=== PATIENT | female | born 1945 | race Caucasian/White ===

== ENCOUNTER 2017-04-12 09:46 | Outpatient (CLI) | payer MEDICARE, OTHER | END 2017-04-12 09:47 | disposition EMS.NT | LOC: EMS 09:46 | PROVIDERS: ATTEND Surgery | DX: R53.1 Weakness (principal) ==

== ENCOUNTER 2017-05-18 08:00 | Outpatient (CLI) | payer MEDICARE, OTHER ==
[2017-05-18 19:10] LABS: BASOPHILS # (AUTO) 0.1 10^3/uL (0.0-0.1); BASOPHILS % (AUTO) 1.8 %; EOSINOPHILS # (AUTO) 0.4 10^3/uL (0.0-0.7); EOSINOPHILS % (AUTO) 6.1 %; HCT - HEMATOCRIT 34.3 % (37.0-47.0); HGB - HEMOGLOBIN 11.9 g/dL (12.0-16.0); LYMPHOCYTES % (AUTO) 15.3 %; MEAN CORPUSCULAR HEMOGLOBIN 31.7 pg (27.0-31.0); MEAN CORPUSCULAR HGB CONC 34.6 g/dL (32.0-36.0); MEAN CORPUSCULAR VOLUME 91.6 fL (81.0-99.0); MEAN PLATELET VOLUME 8.4 fL (7.9-10.8); MONOCYTES # (AUTO) 0.7 10^3/uL (0.0-1.0); MONOCYTES % (AUTO) 10.3 %; NEUTROPHILS # (AUTO) 4.3 10^3/uL (1.5-6.6); NEUTROPHILS % (AUTO) 66.5 %; RED BLOOD COUNT 3.74 10^6/uL (4.20-5.40); RED CELL DISTRIBUTION WIDTH 13.9 % (12.0-15.0); UNCORRECTED WHITE BLOOD COUNT 6.5 x10^3/uL; WHITE BLOOD COUNT 6.5 x10^3/uL (4.8-10.8)
[2017-05-18 19:31] LABS: ALBUMIN/GLOBULIN RATIO 1.5 (1.0-2.2); BILIRUBIN,TOTAL 0.7 mg/dL (0.2-1.0); BUN - BLOOD UREA NITROGEN 18 mg/dL (6-20); CARBON DIOXIDE - CO2 26 mmol/L (21-32); CHLORIDE 97 mmol/L (101-111); GFR - MDRD 55 (>89); GLUCOSE 103 mg/dL (70-100); IRON 68 ug/dL (28-170); POTASSIUM 4.4 mmol/L (3.5-5.0); PREALBUMIN 25 mg/dL (18-45); SODIUM 130 mmol/L (135-145); TOTAL IRON BINDING CAPACITY 266 ug/dL (250-450); TOTAL PROTEIN 6.8 g/dL (6.7-8.2); TRANSFERRIN 190 mg/dL (192-382)
[2017-05-18 19:38] LABS: THYROID STIMULATING HORMONE 1.13 uIU/mL (0.34-5.60)
[2017-05-18 19:45] LABS: FERRITIN 82.4 ng/mL (11.0-306.8)
[2017-05-18 19:49] LABS: FOLATE 18.27 ng/mL (5.90 - >24.8)
[2017-05-18 20:07] LABS: BILIRUBIN,URINE NEGATIVE (NEGATIVE)
== END 2017-05-18 08:01 | disposition home or self-care (01) ==
LOC: LAB.WCP 08:00
PROVIDERS: ATTEND Family Medicine
DX: R63.0 Anorexia (principal); D64.9 Anemia, unspecified; R30.0 Dysuria
CPT/HCPCS: 36415; 80053; 81003; 82607; 82728; 82746; 83540; 84134; 84443; 84466; 85025

== ENCOUNTER 2018-10-16 15:41 | Outpatient (CLI) | payer MEDICARE, OTHER | END 2018-10-16 15:42 | disposition critical access hospital (66) | LOC: EMS 15:41 | PROVIDERS: ATTEND Surgery | DX: T14.90XA Injury, unspecified, initial encounter (principal); W18.39XA Other fall on same level, initial encounter; Y93.E8 Activity, other personal hygiene; Y92.009 Unspecified place in unspecified non-institutional (private) residence as the place of occurrence of the external cause | CPT/HCPCS: A0425; A0429 ==

== ENCOUNTER 2018-10-16 15:54 | Inpatient (IN) | payer MEDICARE, OTHER ==
[2018-10-16] MEDS ORDERED: HYDROcod/ACETAM 5/325 MG TABLET PO STA (16:15)
[2018-10-16] MEDS ORDERED: ACETAMINOPHEN 325 MG TABLET PO STA (16:15)
[2018-10-16 16:33] LABS: BASOPHILS # (AUTO) 0.1 10^3/uL (0.0-0.1); BASOPHILS % (AUTO) 0.6 %; EOSINOPHILS % (AUTO) 0.1 %; LYMPHOCYTES # (AUTO) 0.3 10^3/uL (1.5-3.5); LYMPHOCYTES % (AUTO) 2.9 %; MEAN CORPUSCULAR HEMOGLOBIN 31.9 pg (27.0-31.0); MEAN CORPUSCULAR HGB CONC 34.6 g/dL (32.0-36.0); MEAN CORPUSCULAR VOLUME 92.3 fL (81.0-99.0); MONOCYTES # (AUTO) 0.6 10^3/uL (0.0-1.0); MONOCYTES % (AUTO) 6.5 %; NEUTROPHILS # (AUTO) 8.9 10^3/uL (1.5-6.6); NEUTROPHILS % (AUTO) 89.9 %; PLT - PLATELET COUNT 201 10^3/uL (130-450); RED BLOOD COUNT 3.75 10^6/uL (4.20-5.40); RED CELL DISTRIBUTION WIDTH 14.3 % (12.0-15.0)
[2018-10-16 16:44] LABS: ALBUMIN 3.9 g/dL (3.2-5.5); ALBUMIN/GLOBULIN RATIO 1.3 (1.0-2.2); BILIRUBIN,TOTAL 1.1 mg/dL (0.2-1.0); CALCIUM 9.3 mg/dL (8.5-10.3); TOTAL PROTEIN 6.8 g/dL (6.7-8.2)
--- NOTE | 2018-10-16 17:33 | XRAY Report ---
Reason: Pain after GLF Procedure Date: 10/16/2018 Accession Number: [id number] / [id number] Procedure: XR - Pelvis 1 View CPT Code: FULL RESULT: EXAM: PELVIS RADIOGRAPHY EXAM DATE: 10/16/2018 04:42 PM. CLINICAL HISTORY: Left hip pain COMPARISON: None. TECHNIQUE: 1 view. FINDINGS: Bones: There is left upper femoral neck fracture. Joints: No evidence of dislocation. Soft Tissues: No unexpected soft tissue findings. There is large volume stool within colon. IMPRESSION: There is impacted fracture of the upper left femoral neck. No evidence of dislocation. RADIA
--- NOTE | 2018-10-16 17:34 | XRAY Report ---
Reason: Pain Procedure Date: 10/16/2018 Accession Number: [id number] / [id number] Procedure: XR - Femur 2V LT CPT Code: FULL RESULT: EXAM: LEFT FEMUR RADIOGRAPHY EXAM DATE: 10/16/2018 04:42 PM. CLINICAL HISTORY: Pain. COMPARISON: None. TECHNIQUE: 2 views. FINDINGS: Bones: There is upper left femoral neck fracture. No other fractures are seen. Joints: No evidence of dislocation. Soft Tissues: No unexpected soft tissue findings. IMPRESSION: There is upper left femoral neck fracture. No evidence of dislocation. RADIA
--- NOTE | 2018-10-16 17:45 | CT Report ---
Reason: Fall w pain Procedure Date: 10/16/2018 Accession Number: [id number] / [id number] Procedure: CT - CERVICAL SPINE WO CPT Code: FULL RESULT: EXAM: CT CERVICAL SPINE WITHOUT CONTRAST DATE: 10/16/2018 05:18 PM. HISTORY: Fall. Neck pain. COMPARISONS: None. TECHNIQUE: Thin-section axial images were acquired of the cervical spine without contrast. Post-processing: Coronal and sagittal reformats. Other: None. In accordance with CT protocol optimization, one or more of the following dose reduction techniques were utilized for this exam: automated exposure control, adjustment of mA and/or KV based on patient size, or use of iterative reconstructive technique. FINDINGS: Alignment: No scoliosis. 1 mm anterolisthesis at C4-C5 due to facet arthropathy. Bones: No fracture or bone lesion. Interspace Levels/Facets: Disk heights maintained. Multilevel facet arthropathy. Other: The paravertebral and prevertebral soft tissues are unremarkable. The lung apices are clear. IMPRESSION: No acute cervical spine abnormalities. RADIA
[2018-10-16] MEDS ORDERED: TEMAZEPAM 15 MG CAPSULE PO PRN (18:48)
[2018-10-16] MEDS ORDERED: ONDANSETRON 4 MG/2 ML VIAL IVP PRN (18:48)
[2018-10-16] MEDS ORDERED: ONDANSETRON ODT 4 MG TABLET TL PRN (18:48)
[2018-10-16] MEDS ORDERED: ACETAMINOPHEN 325 MG TABLET PO PRN (18:48)
--- NOTE | 2018-10-16 18:49 | ED Physician Documentation ---
History of Present Illness - Stated complaint Stated Complaint: GLF - Chief complaint Chief Complaint: General - History obtained from History obtained from: Family - History of Present Illness Timing: Prior to arrival (1 hr) Pain level max: 3 Pain level now: 3 Severity Comments: Mild Quality: Sharp Radiates to: none Improved by: nothing Worsened by: Walking - Additonal information Additional information: 73-year-old female with left hip pain after ground-level fall.Patient ambulates independently at baseline. Review of Systems Unable to obtain: Dementia Constitutional: reports: Reviewed and negative Eyes: reports: Reviewed and negative Ears: reports: Reviewed and negative Nose: reports: Reviewed and negative Throat: reports: Reviewed and negative Cardiac: reports: Reviewed and negative Respiratory: reports: Reviewed and negative GI: reports: Reviewed and negative : reports: Reviewed and negative Skin: reports: Reviewed and negative Musculoskeletal: reports: Reviewed and negative Neurologic: reports: Reviewed and negative Psychiatric: reports: Reviewed and negative Endocrine: reports: Reviewed and negative Immunocompromised: reports: Reviewed and negative PD PAST MEDICAL HISTORY - Past Medical History Past Medical History: Yes Cardiovascular: Hypertension, High cholesterol Respiratory: None Neuro: Dementia, Other Endocrine/Autoimmune: HyPOthyroidism GI: None 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 : None HEENT: Chronic vision loss, Chronic hearing loss Psych: None Musculoskeletal: None Derm: None Other Past Medical History: aphasia, melas - Past Surgical History Past Surgical History: Yes HEENT: Other - Present Medications Home Medications: Ambulatory Orders Medication Instructions Recorded Confirmed Levothyroxine [Synthroid] 75 mcg ORAL DAILY 03/04/16 06/02/16 Lisinopril [Prinivil] 5 mg PO DAILY 03/04/16 06/02/16 Clopidogrel [Plavix] 75 mg ORAL DAILY 10/16/18 10/16/18 - Allergies Allergies/Adverse Reactions: Allergies Allergy/AdvReac Type Severity Reaction Status Date / Time No Known Drug Allergies Allergy Verified 10/16/18 16:07 - Living Situation Living Situation: reports: With spouse/s.o. Living Arrangement: reports: At home - Social History Does the pt smoke?: No Smoking Status: Never smoker Does the pt drink ETOH?: No Does the pt have substance abuse?: No - Family History Family history: reports: Other (Reviewed and not pertinent) - Immunizations Immunizations are current?: Yes - POLST Patient has POLST: No PD ED PE NORMAL - Vitals Vital signs reviewed: Yes - General General: No acute distress - HEENT HEENT: PERRL - Neck Neck: Supple, no meningeal sign - Cardiac Cardiac: RRR, No murmur - Respiratory Respiratory: Clear bilaterally - Abdomen Abdomen: Normal bowel sounds, Soft, Non tender, Non distended - Derm Derm: Warm and dry - Extremities Extremities: No deformity, Other (Left hip tenderness, NV intact) - Neuro Neuro: Alert and oriented X 3 - Psych Psych: Normal mood, Normal affect Results - Vitals Vitals: Vital Signs - 24 hr 10/16/18 10/16/18 15:58 18:21 Temperature 36.7 C Heart Rate 83 75 Respiratory 18 16 Rate Blood Pressure 192/88 H 160/92 H O2 Saturation 98 99 Oxygen O2 Source Room air - Labs Labs: Laboratory Tests 10/16/18 10/16/18 16:25 16:25 WBC 10.0 RBC 3.75 L Hgb 12.0 Hct 34.6 L MCV 92.3 MCH 31.9 H MCHC 34.6 RDW 14.3 Plt Count 201 MPV 8.0 Neut # (Auto) 8.9 H Lymph # (Auto) 0.3 L [place] # (Auto) 0.6 Eos # (Auto) 0.0 Baso # (Auto) 0.1 Absolute Nucleated RBC 0.00 Nucleated RBC % 0.0 Sodium 136 Potassium 4.4 Chloride 101 Carbon Dioxide 23 Anion Gap 12.0 BUN 24 H Creatinine 1.0 Estimated GFR (MDRD) 55 L Glucose 145 H Calcium 9.3 Total Bilirubin 1.1 H AST 27 ALT 23 Alkaline Phosphatase 42 Total Protein 6.8 Albumin 3.9 Globulin 2.9 Albumin/Globulin Ratio 1.3 Lipase 38 - Rads (name of study) Left hip xray Radiology: Final report received (Impacted femoral neck fracture) CT Head Radiology: Final report received (WNL) CT Cervical spine Radiology: Final report received (WNL) PD MEDICAL DECISION MAKING - ED course Complexity details: reviewed old records, reviewed results, considered differential, d/w patient, d/w family, 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 Consulted orthopedics and admitted to hospitalist. - Consults Consults: Consulted (name) (Kathy Simpson) Departure - Departure Disposition: [facility] DC/Xfer Clinical Impression: Closed left hip fracture Qualifiers: Encounter type: initial encounter Qualified Code(s): S72.002A - Fracture of unspecified part of neck of left femur, initial encounter for closed fracture
[2018-10-16 19:13] LABS: BILIRUBIN,URINE NEGATIVE (NEGATIVE); GLUCOSE, URINE (UA) NEGATIVE (NEGATIVE); KETONES,URINE (UA) NEGATIVE (NEGATIVE); LEUKOCYTE ESTERASE, URINE NEGATIVE (NEGATIVE); NITRITE,URINE NEGATIVE (NEGATIVE); OCCULT BLOOD,URINE TRACE-INTA (NEGATIVE); PH,URINE 6.5 PH (5.0-7.5); PROTEIN,URINE 30 mg/dL (NEGATIVE); UROBILINOGEN,URINE 0.2 (NORMAL) E.U./dL (NORMAL)
[2018-10-16 19:14] LABS: CLARITY,URINE CLEAR (CLEAR)
--- NOTE | 2018-10-16 19:19 | PROVIDER PROGRESS NOTE ---
Subjective - Prog Note Date Prog Note Date: 10/16/18 Prog Note Time: 19:16 - Subjective Pt reports feeling: Worse (Patient [facility] A GLF Wednesday, landing onto left side. Noted pain and was unable to stand and weight bear on the left. Taken to ED where XR show an impacted, minimally displaced left subcapital hip fracture.) Objective - Vital Signs/Intake & Output Vital Signs: Vital Signs x48h Temp Pulse Resp BP Pulse Ox 10/16/18 18:21 75 16 160/92 H 99 10/16/18 15:58 36.7 C 83 18 192/88 H 98 - Lab Results Fish Bones: 10/16/18 16:25 10/16/18 16:25 Other Labs: Lab Results x24hrs 10/16/18 10/16/18 10/16/18 Range/Units 18:58 16:25 16:25 WBC 10.0 (4.8-10.8) x10^3/uL RBC 3.75 L (4.20-5.40) 10^6/uL Hgb 12.0 (12.0-16.0) g/dL Hct 34.6 L (37.0-47.0) % MCV 92.3 (81.0-99.0) fL MCH 31.9 H (27.0-31.0) pg MCHC 34.6 (32.0-36.0) g/dL RDW 14.3 (12.0-15.0) % Plt Count 201 (130-450) 10^3/uL MPV 8.0 (7.9-10.8) fL Neut # (Auto) 8.9 H (1.5-6.6) 10^3/uL Lymph # (Auto) 0.3 L (1.5-3.5) 10^3/uL [place] # (Auto) 0.6 (0.0-1.0) 10^3/uL Eos # (Auto) 0.0 (0.0-0.7) 10^3/uL Baso # (Auto) 0.1 (0.0-0.1) 10^3/uL Absolute Nucleated RBC 0.00 x10^3/uL Nucleated RBC % 0.0 /100WBC Sodium 136 (135-145) mmol/L Potassium 4.4 (3.5-5.0) mmol/L Chloride 101 (101-111) mmol/L Carbon Dioxide 23 (21-32) mmol/L Anion Gap 12.0 (6-13) BUN 24 H (6-20) mg/dL Creatinine 1.0 (0.4-1.0) mg/dL Estimated GFR (MDRD) 55 L (>89) Glucose 145 H (70-100) mg/dL Calcium 9.3 (8.5-10.3) mg/dL Total Bilirubin 1.1 H (0.2-1.0) mg/dL AST 27 (10-42) IU/L ALT 23 (10-60) IU/L Alkaline Phosphatase 42 (42-121) IU/L Total Protein 6.8 (6.7-8.2) g/dL Albumin 3.9 (3.2-5.5) g/dL Globulin 2.9 (2.1-4.2) g/dL Albumin/Globulin Ratio 1.3 (1.0-2.2) Lipase 38 (22-51) U/L Urine Color YELLOW Urine Clarity CLEAR (CLEAR) Urine pH 6.5 (5.0-7.5) PH Ur Specific [place] 1.015 (1.002-1.030) Urine Protein 30 H (NEGATIVE) mg/dL Urine Glucose (UA) NEGATIVE (NEGATIVE) mg/dL Urine Ketones NEGATIVE (NEGATIVE) mg/dL Urine Occult Blood TRACE-INTA (NEGATIVE) Urine Nitrite NEGATIVE (NEGATIVE) Urine Bilirubin NEGATIVE (NEGATIVE) Urine Urobilinogen 0.2 (NORMAL) (NORMAL) E.U./dL Ur Leukocyte Esterase NEGATIVE (NEGATIVE) Ur Microscopic Review INDICATED Urine Culture Comments Not Reportable - Diagnostic Imaging Diagnostic Imaging Comments: XR show an impacted, minimally displaced left subcapital hip fracture - Other Results/Comments Other Results/Comments: EXAM: Painful left hip motion. Minimal leg shortening. Moves toes well. sensation intact. Good cap filliing Assessment/Plan - Problem List (1) Closed left hip fracture Impression: Closed, minimally displaced left subcapital hip fracture PLAN: Although patient is on Plavix, she will require urgent hip surgery to fix her fracture. Risk and benefits of surgery now vs waiting up to 5 days was explained to patient. Risks such as anesthesia risk, blood loss, DVT, infection, neurve damage, nonunion, etc explained. Questions answered. Will proceed with cannulated screw fixation of left hip fracture Mon AM if cleared by medicine and when OR schedule allows. Consent signed. Leg marked. Qualifiers: Encounter type: initial encounter Qualified Code(s): S72.002A - Fracture of unspecified part of neck of left femur, initial encounter for closed fracture
--- NOTE | 2018-10-16 19:24 | HISTORY & PHYSICAL EXAMINATION ---
Chief Complaint - Chief Complaint Chief Complaint: s/p fall withleft hip pain History of Present Illness - Admitted From Admitted From:: ED - History Obtained From Records Reviewed: Yes History obtained from: Patient Exam Limitations: dementia - History of Present Illness HPI Comment/Other: 73-year-old female with hx significant for HTN, Dementia, Hyperlipidemia, osteoporosis, chronic hearing and vision loss who ambulates idepedently p/w with having a mechanical fall at ground level with left hip pain. Patient had landing onto left side. Noted pain and was unable to stand and weight bear on the left. Taken to ED where XR show an impacted, minimally displaced left subcapital hip fracture. She is currently on plavix. On initial exam LROM to left hip to adduction and abduction as well as flexion of hip with confirmed left femoral neck fracture seen on Xray of hip/pelvis. CT spine shows no acute vertebral fractures and labs were essentially unremarkable with the exception of a baseline CKD stage 2 with a cr of 1.0. Patient to be admitted, medically managed and preoperative evaluation of medical/cardiac risk stratification for anticipated left hip surgical correction. 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 - POLST Patient has POLST: No Meds/Allgy - Home Medications Home Medications: Ambulatory Orders Medication Instructions Recorded Confirmed Levothyroxine [Synthroid] 75 mcg ORAL DAILY 03/04/16 06/02/16 Lisinopril [Prinivil] 5 mg PO DAILY 03/04/16 06/02/16 Clopidogrel [Plavix] 75 mg ORAL DAILY 10/16/18 10/16/18 - Allergies Allergies/Adverse Reactions: Allergies Allergy/AdvReac Type Severity Reaction Status Date / Time No Known Drug Allergies Allergy Verified 10/16/18 16:07 Prior Level of Functionality: Patient is independent with home ADL's Exam - Vital Signs Reviewed Vital Signs: Yes Vital Signs: Vital Signs x48h Temp Pulse Resp BP Pulse Ox 10/16/18 18:21 75 16 160/92 H 99 10/16/18 15:58 36.7 C 83 18 192/88 H 98 - Physical Exam General Appearance: positive: No acute distress, Alert, Anxious, Other (baseline dementia with behavioral disturbance on 2 pt restraints) Eyes Bilateral: positive: Normal inspection, PERRL, EOMI ENT: positive: ENT inspection nml, Pharynx nml, No signs of dehydration Neck: positive: Nml inspection, Thyroid nml, No JVD, Trachea midline. negative: Thyromegaly Respiratory: positive: Chest non-tender, No respiratory distress, Breath sounds nml. negative: Wheezes, Rales, Rhonchi Cardiovascular: positive: Regular rate & rhythm, No murmur, No gallop. neg ative: Irregularly irregular, JVD present, Systolic murmur, Gallop/S4 Peripheral Pulses: positive: 2+ Abdomen: positive: Non-tender, No organomegaly, Nml bowel sounds, No distention. negative: Tenderness Skin: positive: Color nml, No rash, Warm Extremities: positive: Nml appearance, No pedal edema, Other (LROM to abduction, addution and flexin to left hip with pain on palpation) Neurologic/Psychiatric: positive: Mood/affect nml, Disoriented to person, Disoriented to place, Disoriented to time, Other (moderate to severe dementia, neuro exam limited due to her unable to cooperate). negative: Slurred/abnml speech, Depressed mood/affect Reflexes: Bicep (R): 2+, Bicep (L): 2+, Knee (R): 2+, Knee (L): 2+, Ankle (R): 2+, Ankle (L): 2+ Babinski Reflex: Right: Absent, Left: Absent Conclusion/Plan - Problem List (1) Closed left hip fracture Conclusion/Plan: s/p mechanical fall from ground level. Risk stratification completed. Likely will have urgent repair of femoral neck fracture by Dr Roper in am. Pain control, NPO after midnight. IVF's to continue will hold plavix for now. Qualifiers: Encounter type: initial encounter Qualified Code(s): S72.002A - Fracture of unspecified part of neck of left femur, initial encounter for closed fracture (2) Pre-op evaluation Conclusion/Plan: [place] periop risk assessment completed with a TREVOR risk 0.2% and a preop mortality predicative score of 8 points which translates to 0.6% risk of perioperative mortality. UA and ecg to follow. Control HTN excursions by using lopressor IV preferably as this would improve perioperative risk for ACS. I query on her baseline dementia and or functional status as this may change perioperative risk. (3) Hypertensive urgency Conclusion/Plan: Sec to pain to left hip. IV hydralazine and or lopressor for perioperative BP excursion control. Resume lisinopril once tolerating PO however this may be challenging as she is mod-severe demented. ECG to follow. (4) Hypothyroid Conclusion/Plan: Resume synthroid at 75 mcg po daily. Qualifiers: Hypothyroidism type: acquired Qualified Code(s): E03.9 - Hypothyroidism, unspecified (5) Hyperlipidemia Conclusion/Plan: Lipid panel in am. Consider statin as she has hx CVA. (6) CKD (chronic kidney disease), stage II Conclusion/Plan: IVF's to continue, correct lytes, on a ortega catheter to minimize urinary retention post-op but may be a nidus for infection, aka UTI post op. (7) Dementia Conclusion/Plan: Suspected vascular dementia type due to hx of stroke. Patient is requiring 2 pt restraints and would need either ativan with caution on overuse as this may create a "disinhibitory" effect. Zyprexa prn instead of Haldol due to better extra-pyramidal side effect profile. NPO for anticipated surgery for now. Control pain and other stimulating factors that may exacerbate dementia. Patient will likely need a swallow eval post-op to determine coexisting oropharyngeal dysphasia as it relates to her mod-severe dementia. Qualifiers: Dementia type: unspecified type Dementia behavioral disturbance: with behavioral disturbance Qualified Code(s): F03.91 - Unspecified dementia with behavioral disturbance (8) History of stroke Conclusion/Plan: Would hold off on plavix for now as surgery will be anticipated in am. PT/INR and labs in a.m. - Lab Results Lab results reviewed: Yes Fish Bones: 10/16/18 16:25 10/16/18 16:25 - Diagnostic Imaging Results Diagnostic Imaging Results: positive: Final report reviewed (CT spine and Xrays reviewed) - EKG Results EKG Interpreted Independently: No EKG Comparison: Old EKG unavailable Core Measures - Anticipated LOS I expect patient to be DC'd or transferred within 96 hours.: Yes - Issues Hospital Issues and Management Plan: Pain control, NPO, IVF's, anticipate uncomplicated surgery outcome for left hip fracture - DVT/VTE - Prophylaxis VTE/DVT Device ordered at admit?: Yes VTE/DVT Prophylaxis med ordered at admit?: No Not Ordered - Medical Reason: Not indicated - Stroke - Rehab Assessment Rehab services assessment to be ordered?: No - AMI - Statin at Admit Aspirin Prescribed on Admit: No Not Ordered - Medical Reason: Contraindicated (will have surgery)
[2018-10-16 19:30] LABS: BACTERIA,URINE None Seen /HPF (None Seen); RBC,URINE 0-5 /HPF (0-5); SQUAMOUS EPITHELIAL CELL,UR NONE SEEN (<= Few)
[2018-10-16] MEDS ORDERED: cloNIDine 0.1 MG TABLET PO PRN (19:31)
--- NOTE | 2018-10-16 19:32 | CT Report ---
Reason: fall w pain Procedure Date: 10/16/2018 Accession Number: [id number] / [id number] Procedure: CT - HEAD WO CPT Code: FULL RESULT: EXAM: CT HEAD EXAM DATE: 10/16/2018 05:45 PM. CLINICAL HISTORY: Fall w pain. COMPARISON: HEAD W/O 05/03/2016 1:18 AM HEAD W/O 10/16/2018 4:42 PM. TECHNIQUE: Multiaxial CT images were obtained from the foramen magnum to the vertex. Reformats: Sagittal and coronal. IV contrast: None. In accordance with CT protocol optimization, one or more of the following dose reduction techniques were utilized for this exam: automated exposure control, adjustment of mA and/or KV based on patient size, or use of iterative reconstructive technique. FINDINGS: Parenchyma: No evidence of hemorrhage or mass-effect. There is left temporoparietal encephalomalacia. There is right temporal encephalomalacia. No clearly acute loss of saldana-white matter differentiation. Extraaxial Spaces: Normal for age. No subdural or epidural collections identified. Ventricles: Normal in size and position. Sinuses and Orbits: Imaged paranasal sinuses, orbits, and mastoids show no significant abnormality. Bones: No acute bony abnormalities. There is a right pterional craniotomy defect. Other: None. IMPRESSION: No acute intracranial CT abnormality. There is no evidence of hemorrhage or mass-effect. RADIA
--- NOTE | 2018-10-16 19:36 | ADVANCE CARE PLANNING NOTE ---
Advance Care Planning - Date/Time Date: 10/06/18 Time: 19:36
[2018-10-16] MEDS ORDERED: OLANZapine 10 MG VIAL IM PRN (19:54)
[2018-10-16] MEDS: LISINOPRIL 5 MG TABLET PO SCH (19:55)
[2018-10-16] MEDS: MORPHINE 2 MG/ML CARPUJECT IVP PRN ×2 (20:05→22:25)
[2018-10-16] MEDS: SODIUM CHLORIDE 0.9% 1,000 ML IV SCH (20:05)
[2018-10-16] MEDS: SODIUM CHLORIDE FLUSH 0.9% 10 ML SYRINGE IVP SCH (20:06)
[2018-10-16] MEDS: hydrALAZINE INJ 20 MG/ML VIAL IVP PRN (20:41)
[2018-10-16] MEDS: SODIUM CHLORIDE FLUSH 0.9% 10 ML SYRINGE IVP PRN ×2 (22:23→22:25)
[2018-10-16] MEDS: LORazepam 2 MG/ML VIAL IVP PRN (22:23)
[2018-10-17 05:39] LABS: BASOPHILS % (AUTO) 0.5 %; EOSINOPHILS # (AUTO) 0.1 10^3/uL (0.0-0.7); EOSINOPHILS % (AUTO) 0.7 %; HGB - HEMOGLOBIN 11.1 g/dL (12.0-16.0); LYMPHOCYTES # (AUTO) 0.4 10^3/uL (1.5-3.5); LYMPHOCYTES % (AUTO) 5.5 %; MEAN CORPUSCULAR HEMOGLOBIN 31.7 pg (27.0-31.0); MEAN CORPUSCULAR HGB CONC 34.2 g/dL (32.0-36.0); MEAN CORPUSCULAR VOLUME 92.7 fL (81.0-99.0); MONOCYTES # (AUTO) 0.8 10^3/uL (0.0-1.0); MONOCYTES % (AUTO) 10.1 %; NEUTROPHILS # (AUTO) 6.5 10^3/uL (1.5-6.6); NEUTROPHILS % (AUTO) 83.2 %; PLT - PLATELET COUNT 200 10^3/uL (130-450); RED BLOOD COUNT 3.51 10^6/uL (4.20-5.40); RED CELL DISTRIBUTION WIDTH 14.4 % (12.0-15.0); WHITE BLOOD COUNT 7.8 x10^3/uL (4.8-10.8)
[2018-10-17 05:41] LABS: CALCIUM 8.5 mg/dL (8.5-10.3); CREATININE 0.8 mg/dL (0.4-1.0)
[2018-10-17 05:46] LABS: INR 1.1 (0.8-1.2); PT - PROTHROMBIN TIME 11.8 secs (9.9-12.6)
[2018-10-17] MEDS: SODIUM CHLORIDE 0.9% 1,000 ML IV SCH ×2 (05:47→14:37)
[2018-10-17 05:50] LABS: CHOL/HDL RATIO 3.9 (<4.4); CHOLESTEROL 259 mg/dL; HDL CHOLESTEROL 67 mg/dL; LDL CHOLESTEROL,CALCULATED 177 mg/dL; LDL/HDL RATIO 2.6 (<4.4); VLDL CHOLESTEROL 15 mg/dL
[2018-10-17] MEDS: LEVOTHYROXINE 75 MCG TABLET PO SCH (06:01)
[2018-10-17] MEDS: MORPHINE 2 MG/ML CARPUJECT IVP PRN (06:05)
[2018-10-17] MEDS ORDERED: ceFAZolin 2 GM/50 ML 2 GM/50 ML BAG IV SCH ×2 (07:00→15:00)
--- NOTE | 2018-10-17 09:42 | ANESTHESIA ---
Pre-Anesthesia VS, & Labs - Diagnosis LEFT HIP FRACTURE - Procedure CANULATED SCREW LEFT HIP FRACTURE Vital Signs: Temp Pulse Resp BP Pulse Ox 36.6 C 84 12 145/77 H 96 10/17/18 07:46 10/17/18 07:46 10/17/18 07:46 10/17/18 07:46 10/17/18 07:46 Height 5 ft 5 in Weight (kg) 45 kg Body Mass Index 16.5 - NPO >8 hours - Is Patient ?: Not Applicable - Lab Results Current Lab Results: Laboratory Tests 10/17/18 05:21: Triglycerides 76, Cholesterol 259 H, LDL Cholesterol, Calc 177 H , VLDL Cholesterol 15, HDL Cholesterol 67, LDL/HDL Ratio 2.6, Cholesterol/HDL Ratio 3.9 10/17/18 05:21: PT 11.8, INR 1.1 10/17/18 05:21: Sodium 136, Potassium 3.7, Chloride 104, Carbon Dioxide 22, Anion Gap 10.0, BUN 24 H, Creatinine 0.8, Estimated GFR (MDRD) 71 L, Glucose 125 H, Calcium 8.5 10/17/18 05:21: WBC 7.8, RBC 3.51 L, Hgb 11.1 L, Hct 32.6 L, MCV 92.7, MCH 31.7 H, MCHC 34.2, RDW 14.4, Plt Count 200, MPV 8.0, Neut # (Auto) 6.5, Lymph # (Auto) 0.4 L, [place] # (Auto) 0.8, Eos # (Auto) 0.1, Baso # (Auto) 0.0, Absolute Nucleated RBC 0.00, Nucleated RBC % 0.0 10/16/18 19:45: Blood Type A POSITIVE, Antibody Screen NEGATIVE 10/16/18 16:25: Sodium 136, Potassium 4.4, Chloride 101, Carbon Dioxide 23, Anion Gap 12.0, BUN 24 H, Creatinine 1.0, Estimated GFR (MDRD) 55 L, Glucose 145 H, Calcium 9.3, Total Bilirubin 1.1 H, AST 27, ALT 23, Alkaline Phosphatase 42, Total Protein 6.8, Albumin 3.9, Globulin 2.9, Albumin/Globulin Ratio 1.3, Lipase 38 10/16/18 16:25: WBC 10.0, RBC 3.75 L, Hgb 12.0, Hct 34.6 L, MCV 92.3, MCH 31.9 H , MCHC 34.6, RDW 14.3, Plt Count 201, MPV 8.0, Neut # (Auto) 8.9 H, Lymph # (Aut o) 0.3 L, [place] # (Auto) 0.6, Eos # (Auto) 0.0, Baso # (Auto) 0.1, Absolute Nucleated RBC 0.00, Nucleated RBC % 0.0 Fish Bones: 10/17/18 05:21 10/17/18 05:21 Home Medications and Allergies Home Medications: Ambulatory Orders Clopidogrel [Plavix] 75 mg ORAL DAILY 10/16/18 Active Medications Acetaminophen (Tylenol) 650 mg PO Q4HR PRN PRN Reason: Pain 1 to 4 Enoxaparin Sodium (Lovenox) 40 mg SUBQ DAILY [facility] Hydralazine HCl (Apresoline Inj) 10 mg IVP Q4HR PRN PRN Reason: SBP>160 or DBP>100 Last Admin: 10/16/18 20:41 Dose: 10 mg Sodium Chloride (Normal Saline 0.9%) 1,000 mls @ 100 mls/hr IV .Q10H [facility] Last Admin: 10/17/18 05:47 Dose: 100 mls/hr Cefazolin Sodium/Dextrose (Ancef 2 Gm/50 Ml) 2 gm in 50 mls @ 100 mls/hr IV ONCE [facility] Stop: 10/17/18 12:00 Levothyroxine Sodium (Synthroid) 75 mcg PO QDAC [facility] Last Admin: 10/17/18 06:01 Dose: 75 mcg Lisinopril (Zestril) 5 mg PO DAILY [facility] Last Admin: 10/16/18 19:55 Dose: Not Given Lorazepam (Ativan Inj (Vial)) 1 mg IVP Q2H PRN PRN Reason: Agitation Last Admin: 10/16/18 22:23 Dose: 1 mg Morphine Sulfate (Morphine (Carpuject)) 2 mg IVP Q2HR PRN PRN Reason: Pain 8 to 10 Last Admin: 10/17/18 06:05 Dose: 2 mg Olanzapine (Zyprexa Im) 5 mg IM DAILY PRN PRN Reason: Agitation Ondansetron HCl (Zofran Inj) 4 mg IVP Q6HR PRN PRN Reason: Nausea / Vomiting Ondansetron HCl (Zofran Odt) 4 mg TL Q6HR PRN PRN Reason: Nausea / Vomiting Polyethylene Glycol (Miralax) 17 gm PO DAILY [facility] Sodium Chloride (Normal Saline Flush 0.9%) 10 ml IVP PRN PRN PRN Reason: NEEDED PER PROVIDER ORDERS Last Admin: 10/16/18 22:25 Dose: 10 ml Sodium Chloride (Normal Saline Flush 0.9%) 10 ml IVP 0100,0900,1700 CRISTEL Last Admin: 10/16/18 20:06 Dose: 10 ml Temazepam (Restoril) 15 mg PO QPM PRN PRN Reason: Insomnia Levothyroxine [Synthroid] 75 mcg ORAL DAILY 03/04/16 Lisinopril [Prinivil] 5 mg PO DAILY 03/04/16 Clopidogrel [Plavix] 75 mg ORAL DAILY 10/16/18 Allergies/Adverse Reactions: Allergies Allergy/AdvReac Type Severity Reaction Status Date / Time No Known Drug Allergies Allergy Verified 10/16/18 16:07 Anes History & Medical History - Anesthetic History Anesthesia Complications: reports: No previous complications Family history of Anesthesia Complications: Denies Family history of Malignant Hyperthermia: Denies - Medical History Cardiovascular: reports: Hypertension, High cholesterol Pulmonary: reports: None Gastrointestinal: reports: None Urinary: reports: None Neuro: reports: Dementia, Other Musculoskeletal: reports: None Endocrine/Autoimmune: reports: HyPOthyroidism Skin: reports: None Smoking Status: Unknown if ever smoked Other Past Medical History: aphasia, melas mitochondrial myopathy melas - Surgical History Eyes Ears Nose Throat (EENT): Other Exam General: Other (aphasia) Dental: WNL Mouth Opening: Can't Open Mouth Neck Mobility: Reduced Mallampati classification: III Thyromental Distance: 4-6 cm Respiratory: Lungs clear, Normal breath sounds, No respiratory distress, No accessory muscle use Cardiovascular: Regular rate, Normal S1, Normal S2, No murmurs Cognitive Status: Other (describe below) (aphasia) Plan Anesthesia Type: General Consent for Procedure(s) Verified and Reviewed: No Code Status: Attempt Resuscitation ASA classification: 3-Severe systemic disease Is this case an emergency?: No
[2018-10-17] MEDS: POLYETHYLENE GLYCOL 3350 17 GM PACKET PO SCH (10:40)
[2018-10-17] MEDS: LISINOPRIL 5 MG TABLET PO SCH (10:40)
[2018-10-17] MEDS: SODIUM CHLORIDE FLUSH 0.9% 10 ML SYRINGE IVP SCH ×3 (10:40→17:22)
--- NOTE | 2018-10-17 10:55 | PROVIDER PROGRESS NOTE ---
Subjective - Prog Note Date Prog Note Date: 10/17/18 Prog Note Time: 10:52 - Subjective Pt reports feeling: No change (Still painful with hip motion) Objective - Vital Signs/Intake & Output Vital Signs: Vital Signs x48h Temp Pulse Resp BP Pulse Ox 10/17/18 07:46 36.6 C 84 12 145/77 H 96 10/17/18 06:30 36.9 C 87 16 147/72 H 97 Intake & Output: Intake & Output 10/14/18 10/15/18 10/16/18 10/17/18 23:59 23:59 23:59 23:59 Intake Total 1000 Output Total 450 800 Balance -450 200 - Lab Results Fish Bones: 10/17/18 05:21 10/17/18 05:21 Other Labs: Lab Results x24hrs 10/17/18 10/17/18 10/17/18 Range/Units 05:21 05:21 05:21 WBC (4.8-10.8) x10^3/uL RBC (4.20-5.40) 10^6/uL Hgb (12.0-16.0) g/dL Hct (37.0-47.0) % MCV (81.0-99.0) fL MCH (27.0-31.0) pg MCHC (32.0-36.0) g/dL RDW (12.0-15.0) % Plt Count (130-450) 10^3/uL MPV (7.9-10.8) fL Neut # (Auto) (1.5-6.6) 10^3/uL Lymph # (Auto) (1.5-3.5) 10^3/uL [place] # (Auto) (0.0-1.0) 10^3/uL Eos # (Auto) (0.0-0.7) 10^3/uL Baso # (Auto) (0.0-0.1) 10^3/uL Absolute Nucleated RBC x10^3/uL Nucleated RBC % /100WBC PT 11.8 (9.9-12.6) secs INR 1.1 (0.8-1.2) Sodium 136 (135-145) mmol/L Potassium 3.7 (3.5-5.0) mmol/L Chloride 104 (101-111) mmol/L Carbon Dioxide 22 (21-32) mmol/L Anion Gap 10.0 (6-13) BUN 24 H (6-20) mg/dL Creatinine 0.8 (0.4-1.0) mg/dL Estimated GFR (MDRD) 71 L (>89) Glucose 125 H (70-100) mg/dL Calcium 8.5 (8.5-10.3) mg/dL Total Bilirubin (0.2-1.0) mg/dL AST (10-42) IU/L ALT (10-60) IU/L Alkaline Phosphatase (42-121) IU/L Total Protein (6.7-8.2) g/dL Albumin (3.2-5.5) g/dL Globulin (2.1-4.2) g/dL Albumin/Globulin Ratio (1.0-2.2) Triglycerides 76 ( - 149) mg/dL Cholesterol 259 H ( - 199) mg/dL LDL Cholesterol, Calc 177 H ( - 129) mg/dL VLDL Cholesterol 15 mg/dL HDL Cholesterol 67 (60 - ) mg/dL LDL/HDL Ratio 2.6 (<4.4) Cholesterol/HDL Ratio 3.9 (<4.4) Lipase (22-51) U/L Urine Color Urine Clarity (CLEAR) Urine pH (5.0-7.5) PH Ur Specific [place] (1.002-1.030) Urine Protein (NEGATIVE) mg/dL Urine Glucose (UA) (NEGATIVE) mg/dL Urine Ketones (NEGATIVE) mg/dL Urine Occult Blood (NEGATIVE) Urine Nitrite (NEGATIVE) Urine Bilirubin (NEGATIVE) Urine Urobilinogen (NORMAL) E.U./dL Ur Leukocyte Esterase (NEGATIVE) Urine RBC (0-5) /HPF Urine WBC (0-5) /HPF Ur Squamous Epith Cells (<= Few) Urine Bacteria (None Seen) /HPF Ur Microscopic Review Urine Culture Comments Blood Type Antibody Screen 10/17/18 10/16/18 10/16/18 Range/Units 05:21 19:45 18:58 WBC 7.8 (4.8-10.8) x10^3/uL RBC 3.51 L (4.20-5.40) 10^6/uL Hgb 11.1 L (12.0-16.0) g/dL Hct 32.6 L (37.0-47.0) % MCV 92.7 (81.0-99.0) fL MCH 31.7 H (27.0-31.0) pg MCHC 34.2 (32.0-36.0) g/dL RDW 14.4 (12.0-15.0) % Plt Count 200 (130-450) 10^3/uL MPV 8.0 (7.9-10.8) fL Neut # (Auto) 6.5 (1.5-6.6) 10^3/uL Lymph # (Auto) 0.4 L (1.5-3.5) 10^3/uL [place] # (Auto) 0.8 (0.0-1.0) 10^3/uL Eos # (Auto) 0.1 (0.0-0.7) 10^3/uL Baso # (Auto) 0.0 (0.0-0.1) 10^3/uL Absolute Nucleated RBC 0.00 x10^3/uL Nucleated RBC % 0.0 /100WBC PT (9.9-12.6) secs INR (0.8-1.2) Sodium (135-145) mmol/L Potassium (3.5-5.0) mmol/L Chloride (101-111) mmol/L Carbon Dioxide (21-32) mmol/L Anion Gap (6-13) BUN (6-20) mg/dL Creatinine (0.4-1.0) mg/dL Estimated GFR (MDRD) (>89) Glucose (70-100) mg/dL Calcium (8.5-10.3) mg/dL Total Bilirubin (0.2-1.0) mg/dL AST (10-42) IU/L ALT (10-60) IU/L Alkaline Phosphatase (42-121) IU/L Total Protein (6.7-8.2) g/dL Albumin (3.2-5.5) g/dL Globulin (2.1-4.2) g/dL Albumin/Globulin Ratio (1.0-2.2) Triglycerides ( - 149) mg/dL Cholesterol ( - 199) mg/dL LDL Cholesterol, Calc ( - 129) mg/dL VLDL Cholesterol mg/dL HDL Cholesterol (60 - ) mg/dL LDL/HDL Ratio (<4.4) Cholesterol/HDL Ratio (<4.4) Lipase (22-51) U/L Urine Color YELLOW Urine Clarity CLEAR (CLEAR) Urine pH 6.5 (5.0-7.5) PH Ur Specific [place] 1.015 (1.002-1.030) Urine Protein 30 H (NEGATIVE) mg/dL Urine Glucose (UA) NEGATIVE (NEGATIVE) mg/dL Urine Ketones NEGATIVE (NEGATIVE) mg/dL Urine Occult Blood TRACE-INTA (NEGATIVE) Urine Nitrite NEGATIVE (NEGATIVE) Urine Bilirubin NEGATIVE (NEGATIVE) Urine Urobilinogen 0.2 (NORMAL) (NORMAL) E.U./dL Ur Leukocyte Esterase NEGATIVE (NEGATIVE) Urine RBC 0-5 (0-5) /HPF Urine WBC 0-3 (0-5) /HPF Ur Squamous Epith Cells NONE SEEN (<= Few) Urine Bacteria None Seen (None Seen) /HPF Ur Microscopic Review INDICATED Urine Culture Comments NOT INDICATED Blood Type A POSITIVE Antibody Screen NEGATIVE 10/16/18 10/16/18 Range/Units 16:25 16:25 WBC 10.0 (4.8-10.8) x10^3/uL RBC 3.75 L (4.20-5.40) 10^6/uL Hgb 12.0 (12.0-16.0) g/dL Hct 34.6 L (37.0-47.0) % MCV 92.3 (81.0-99.0) fL MCH 31.9 H (27.0-31.0) pg MCHC 34.6 (32.0-36.0) g/dL RDW 14.3 (12.0-15.0) % Plt Count 201 (130-450) 10^3/uL MPV 8.0 (7.9-10.8) fL Neut # (Auto) 8.9 H (1.5-6.6) 10^3/uL Lymph # (Auto) 0.3 L (1.5-3.5) 10^3/uL [place] # (Auto) 0.6 (0.0-1.0) 10^3/uL Eos # (Auto) 0.0 (0.0-0.7) 10^3/uL Baso # (Auto) 0.1 (0.0-0.1) 10^3/uL Absolute Nucleated RBC 0.00 x10^3/uL Nucleated RBC % 0.0 /100WBC PT (9.9-12.6) secs INR (0.8-1.2) Sodium 136 (135-145) mmol/L Potassium 4.4 (3.5-5.0) mmol/L Chloride 101 (101-111) mmol/L Carbon Dioxide 23 (21-32) mmol/L Anion Gap 12.0 (6-13) BUN 24 H (6-20) mg/dL Creatinine 1.0 (0.4-1.0) mg/dL Estimated GFR (MDRD) 55 L (>89) Glucose 145 H (70-100) mg/dL Calcium 9.3 (8.5-10.3) mg/dL Total Bilirubin 1.1 H (0.2-1.0) mg/dL AST 27 (10-42) IU/L ALT 23 (10-60) IU/L Alkaline Phosphatase 42 (42-121) IU/L Total Protein 6.8 (6.7-8.2) g/dL Albumin 3.9 (3.2-5.5) g/dL Globulin 2.9 (2.1-4.2) g/dL Albumin/Globulin Ratio 1.3 (1.0-2.2) Triglycerides ( - 149) mg/dL Cholesterol ( - 199) mg/dL LDL Cholesterol, Calc ( - 129) mg/dL VLDL Cholesterol mg/dL HDL Cholesterol (60 - ) mg/dL LDL/HDL Ratio (<4.4) Cholesterol/HDL Ratio (<4.4) Lipase 38 (22-51) U/L Urine Color Urine Clarity (CLEAR) Urine pH (5.0-7.5) PH Ur Specific [place] (1.002-1.030) Urine Protein (NEGATIVE) mg/dL Urine Glucose (UA) (NEGATIVE) mg/dL Urine Ketones (NEGATIVE) mg/dL Urine Occult Blood (NEGATIVE) Urine Nitrite (NEGATIVE) Urine Bilirubin (NEGATIVE) Urine Urobilinogen (NORMAL) E.U./dL Ur Leukocyte Esterase (NEGATIVE) Urine RBC (0-5) /HPF Urine WBC (0-5) /HPF Ur Squamous Epith Cells (<= Few) Urine Bacteria (None Seen) /HPF Ur Microscopic Review Urine Culture Comments Blood Type Antibody Screen - Other Results/Comments Other Results/Comments: EXAM: Unchanged Assessment/Plan - Problem List (1) Closed left hip fracture Impression: Stable PLAN: No change in exam or plans. Discussed with patient's about code status. He wishes for us to only use pharmaceutical measures to resuscitate patient as needed. Risks and benefits of surgery explained and questions answered. Leg marked. Consent signed. Qualifiers: Encounter type: initial encounter Qualified Code(s): S72.002A - Fracture of unspecified part of neck of left femur, initial encounter for closed fracture
--- NOTE | 2018-10-17 11:24 | PROVIDER PROGRESS NOTE ---
Subjective - Subjective Pt reports feeling: Improved Subjective: pt is in the sleep and status post of hip repair. I discuss with pt's about pt's care plan at pt's bedside, and answer his questions. Her request to change pt's code status to DNR. He also wishes for us to only use pharmaceutical measures to resuscitate patient as needed. Current Medications - Current Medications Current Medications: Active Medications Acetaminophen (Tylenol) 650 mg PO Q4HR PRN PRN Reason: Pain 1 to 4 Atorvastatin Calcium (Lipitor) 40 mg PO QPM [facility] Cholecalciferol (Vitamin D3) 1,000 unit PO DAILY [facility] Clopidogrel Bisulfate (Plavix) 75 mg PO DAILY [facility] Enoxaparin Sodium (Lovenox) 40 mg SUBQ DAILY [facility] Hydralazine HCl (Apresoline Inj) 10 mg IVP Q4HR PRN PRN Reason: SBP>160 or DBP>100 Last Admin: 10/16/18 20:41 Dose: 10 mg Cefazolin Sodium/Dextrose (Ancef 2 Gm/50 Ml) 2 gm in 50 mls @ 100 mls/hr IV ONCE [facility] Stop: 10/17/18 12:00 Last Admin: 10/17/18 10:40 Dose: Not Given Levothyroxine Sodium (Synthroid) 75 mcg PO QDAC [facility] Last Admin: 10/17/18 06:01 Dose: 75 mcg Lisinopril (Zestril) 5 mg PO DAILY [facility] Last Admin: 10/17/18 10:40 Dose: Not Given Lorazepam (Ativan Inj (Vial)) 1 mg IVP Q2H PRN PRN Reason: Agitation Last Admin: 10/16/18 22:23 Dose: 1 mg Morphine Sulfate (Morphine (Carpuject)) 2 mg IVP Q2HR PRN PRN Reason: Pain 8 to 10 Last Admin: 10/17/18 06:05 Dose: 2 mg Multivitamins (Theragran) 1 tab PO DAILYWM [facility] Olanzapine (Zyprexa Im) 5 mg IM DAILY PRN PRN Reason: Agitation Ondansetron HCl (Zofran Inj) 4 mg IVP Q6HR PRN PRN Reason: Nausea / Vomiting Ondansetron HCl (Zofran Odt) 4 mg TL Q6HR PRN PRN Reason: Nausea / Vomiting Polyethylene Glycol (Miralax) 17 gm PO DAILY [facility] Last Admin: 10/17/18 10:40 Dose: Not Given Sodium Chloride (Normal Saline Flush 0.9%) 10 ml IVP PRN PRN PRN Reason: NEEDED PER PROVIDER ORDERS Last Admin: 10/16/18 22:25 Dose: 10 ml Sodium Chloride (Normal Saline Flush 0.9%) 10 ml IVP 0100,0900,1700 [facility] Last Admin: 10/17/18 10:40 Dose: Not Given Temazepam (Restoril) 15 mg PO QPM PRN PRN Reason: Insomnia Levothyroxine [Synthroid] 75 mcg ORAL DAILY 03/04/16 Lisinopril [Prinivil] 5 mg PO DAILY 03/04/16 Clopidogrel [Plavix] 75 mg ORAL DAILY 10/16/18 Atorvastatin Calcium 40 mg PO QPM 10/17/18 Multivitamin [Multiple Vitamins] 1 each PO DAILY 10/17/18 Objective - Vital Signs/Intake & Output Reviewed Vital Signs: Yes Vital Signs: Vital Signs x48h Temp Pulse Resp BP Pulse Ox 10/17/18 07:46 36.6 C 84 12 145/77 H 96 10/17/18 06:30 36.9 C 87 16 147/72 H 97 Intake & Output: Intake & Output 10/14/18 10/15/18 10/16/18 10/17/18 23:59 23:59 23:59 23:59 Intake Total 1000 Output Total 450 800 Balance -450 200 - Objective General Appearance: positive: No acute distress, Alert. negative: Lethargic Eyes Bilateral: positive: Normal inspection, PERRL, No lid inflammation, Co njunctivae nml ENT: positive: ENT inspection nml, Pharynx nml, No signs of dehydration. negative: Purulent nasal drainage, Pharyngeal erythema, Oral lesions Neck: positive: Nml inspection, Thyroid nml, No JVD, Trachea midline. negative: Thyromegaly, Lymphadenopathy (R), Lymphadenopathy (L), Stiff neck, Swelling/bruising, Tracheal deviation Respiratory: positive: Chest non-tender, No respiratory distress, Breath sounds nml. negative: Wheezes, Rales, Rhonchi Cardiovascular: positive: Regular rate & rhythm, No murmur, No gallop. negative: Irregularly irregular, Extrasystoles, Tachycardia, Bradycardia, JVD present, Systolic murmur, Diastolic murmur Peripheral Pulses: 2+ Radial (R), 2+ Radial (L), 2+ Dorsalis pedis (R), 2+ Dorsalis pedis (L) Abdomen: positive: Non-tender, No organomegaly, Nml bowel sounds, No distention. negative: Tenderness, Guarding, Rebound Back: positive: Nml inspection. negative: CVA tenderness (R), CVA tenderness (L) Skin: positive: Color nml, No rash, Warm, Dry. negative: Cyanosis, Diaphoresis, Pallor Extremities: positive: Non-tender, Full ROM, Nml appearance. negative: Calf tenderness, Joint swelling, Margi's sign/cords Neurologic/Psychiatric: negative: Weakness, Sensory loss, Facial droop, Slurred/abnml speech, Depressed mood/affect - Lab Results Fish Bones: 10/17/18 05:21 10/17/18 05:21 Other Labs: Lab Results x24hrs 10/17/18 10/17/18 10/17/18 Range/Units 05:21 05:21 05:21 WBC (4.8-10.8) x10^3/uL RBC (4.20-5.40) 10^6/uL Hgb (12.0-16.0) g/dL Hct (37.0-47.0) % MCV (81.0-99.0) fL MCH (27.0-31.0) pg MCHC (32.0-36.0) g/dL RDW (12.0-15.0) % Plt Count (130-450) 10^3/uL MPV (7.9-10.8) fL Neut # (Auto) (1.5-6.6) 10^3/uL Lymph # (Auto) (1.5-3.5) 10^3/uL [place] # (Auto) (0.0-1.0) 10^3/uL Eos # (Auto) (0.0-0.7) 10^3/uL Baso # (Auto) (0.0-0.1) 10^3/uL Absolute Nucleated RBC x10^3/uL Nucleated RBC % /100WBC PT 11.8 (9.9-12.6) secs INR 1.1 (0.8-1.2) Sodium 136 (135-145) mmol/L Potassium 3.7 (3.5-5.0) mmol/L Chloride 104 (101-111) mmol/L Carbon Dioxide 22 (21-32) mmol/L Anion Gap 10.0 (6-13) BUN 24 H (6-20) mg/dL Creatinine 0.8 (0.4-1.0) mg/dL Estimated GFR (MDRD) 71 L (>89) Glucose 125 H (70-100) mg/dL Calcium 8.5 (8.5-10.3) mg/dL Total Bilirubin (0.2-1.0) mg/dL AST (10-42) IU/L ALT (10-60) IU/L Alkaline Phosphatase (42-121) IU/L Total Protein (6.7-8.2) g/dL Albumin (3.2-5.5) g/dL Globulin (2.1-4.2) g/dL Albumin/Globulin Ratio (1.0-2.2) Triglycerides 76 ( - 149) mg/dL Cholesterol 259 H ( - 199) mg/dL LDL Cholesterol, Calc 177 H ( - 129) mg/dL VLDL Cholesterol 15 mg/dL HDL Cholesterol 67 (60 - ) mg/dL LDL/HDL Ratio 2.6 (<4.4) Cholesterol/HDL Ratio 3.9 (<4.4) Lipase (22-51) U/L Urine Color Urine Clarity (CLEAR) Urine pH (5.0-7.5) PH Ur Specific [place] (1.002-1.030) Urine Protein (NEGATIVE) mg/dL Urine Glucose (UA) (NEGATIVE) mg/dL Urine Ketones (NEGATIVE) mg/dL Urine Occult Blood (NEGATIVE) Urine Nitrite (NEGATIVE) Urine Bilirubin (NEGATIVE) Urine Urobilinogen (NORMAL) E.U./dL Ur Leukocyte Esterase (NEGATIVE) Urine RBC (0-5) /HPF Urine WBC (0-5) /HPF Ur Squamous Epith Cells (<= Few) Urine Bacteria (None Seen) /HPF Ur Microscopic Review Urine Culture Comments Blood Type Antibody Screen 10/17/18 10/16/18 10/16/18 Range/Units 05:21 19:45 18:58 WBC 7.8 (4.8-10.8) x10^3/uL RBC 3.51 L (4.20-5.40) 10^6/uL Hgb 11.1 L (12.0-16.0) g/dL Hct 32.6 L (37.0-47.0) % MCV 92.7 (81.0-99.0) fL MCH 31.7 H (27.0-31.0) pg MCHC 34.2 (32.0-36.0) g/dL RDW 14.4 (12.0-15.0) % Plt Count 200 (130-450) 10^3/uL MPV 8.0 (7.9-10.8) fL Neut # (Auto) 6.5 (1.5-6.6) 10^3/uL Lymph # (Auto) 0.4 L (1.5-3.5) 10^3/uL [place] # (Auto) 0.8 (0.0-1.0) 10^3/uL Eos # (Auto) 0.1 (0.0-0.7) 10^3/uL Baso # (Auto) 0.0 (0.0-0.1) 10^3/uL Absolute Nucleated RBC 0.00 x10^3/uL Nucleated RBC % 0.0 /100WBC PT (9.9-12.6) secs INR (0.8-1.2) Sodium (135-145) mmol/L Potassium (3.5-5.0) mmol/L Chloride (101-111) mmol/L Carbon Dioxide (21-32) mmol/L Anion Gap (6-13) BUN (6-20) mg/dL Creatinine (0.4-1.0) mg/dL Estimated GFR (MDRD) (>89) Glucose (70-100) mg/dL Calcium (8.5-10.3) mg/dL Total Bilirubin (0.2-1.0) mg/dL AST (10-42) IU/L ALT (10-60) IU/L Alkaline Phosphatase (42-121) IU/L Total Protein (6.7-8.2) g/dL Albumin (3.2-5.5) g/dL Globulin (2.1-4.2) g/dL Albumin/Globulin Ratio (1.0-2.2) Triglycerides ( - 149) mg/dL Cholesterol ( - 199) mg/dL LDL Cholesterol, Calc ( - 129) mg/dL VLDL Cholesterol mg/dL HDL Cholesterol (60 - ) mg/dL LDL/HDL Ratio (<4.4) Cholesterol/HDL Ratio (<4.4) Lipase (22-51) U/L Urine Color YELLOW Urine Clarity CLEAR (CLEAR) Urine pH 6.5 (5.0-7.5) PH Ur Specific [place] 1.015 (1.002-1.030) Urine Protein 30 H (NEGATIVE) mg/dL Urine Glucose (UA) NEGATIVE (NEGATIVE) mg/dL Urine Ketones NEGATIVE (NEGATIVE) mg/dL Urine Occult Blood TRACE-[place] (NEGATIVE) Urine Nitrite NEGATIVE (NEGATIVE) Urine Bilirubin NEGATIVE (NEGATIVE) Urine Urobilinogen 0.2 (NORMAL) (NORMAL) E.U./dL Ur Leukocyte Esterase NEGATIVE (NEGATIVE) Urine RBC 0-5 (0-5) /HPF Urine WBC 0-3 (0-5) /HPF Ur Squamous Epith Cells NONE SEEN (<= Few) Urine Bacteria None Seen (None Seen) /HPF Ur Microscopic Review INDICATED Urine Culture Comments NOT INDICATED Blood Type A POSITIVE Antibody Screen NEGATIVE 10/16/18 10/16/18 Range/Units 16:25 16:25 WBC 10.0 (4.8-10.8) x10^3/uL RBC 3.75 L (4.20-5.40) 10^6/uL Hgb 12.0 (12.0-16.0) g/dL Hct 34.6 L (37.0-47.0) % MCV 92.3 (81.0-99.0) fL MCH 31.9 H (27.0-31.0) pg MCHC 34.6 (32.0-36.0) g/dL RDW 14.3 (12.0-15.0) % Plt Count 201 (130-450) 10^3/uL MPV 8.0 (7.9-10.8) fL Neut # (Auto) 8.9 H (1.5-6.6) 10^3/uL Lymph # (Auto) 0.3 L (1.5-3.5) 10^3/uL [place] # (Auto) 0.6 (0.0-1.0) 10^3/uL Eos # (Auto) 0.0 (0.0-0.7) 10^3/uL Baso # (Auto) 0.1 (0.0-0.1) 10^3/uL Absolute Nucleated RBC 0.00 x10^3/uL Nucleated RBC % 0.0 /100WBC PT (9.9-12.6) secs INR (0.8-1.2) Sodium 136 (135-145) mmol/L Potassium 4.4 (3.5-5.0) mmol/L Chloride 101 (101-111) mmol/L Carbon Dioxide 23 (21-32) mmol/L Anion Gap 12.0 (6-13) BUN 24 H (6-20) mg/dL Creatinine 1.0 (0.4-1.0) mg/dL Estimated GFR (MDRD) 55 L (>89) Glucose 145 H (70-100) mg/dL Calcium 9.3 (8.5-10.3) mg/dL Total Bilirubin 1.1 H (0.2-1.0) mg/dL AST 27 (10-42) IU/L ALT 23 (10-60) IU/L Alkaline Phosphatase 42 (42-121) IU/L Total Protein 6.8 (6.7-8.2) g/dL Albumin 3.9 (3.2-5.5) g/dL Globulin 2.9 (2.1-4.2) g/dL Albumin/Globulin Ratio 1.3 (1.0-2.2) Triglycerides ( - 149) mg/dL Cholesterol ( - 199) mg/dL LDL Cholesterol, Calc ( - 129) mg/dL VLDL Cholesterol mg/dL HDL Cholesterol (60 - ) mg/dL LDL/HDL Ratio (<4.4) Cholesterol/HDL Ratio (<4.4) Lipase 38 (22-51) U/L Urine Color Urine Clarity (CLEAR) Urine pH (5.0-7.5) PH Ur Specific [place] (1.002-1.030) Urine Protein (NEGATIVE) mg/dL Urine Glucose (UA) (NEGATIVE) mg/dL Urine Ketones (NEGATIVE) mg/dL Urine Occult Blood (NEGATIVE) Urine Nitrite (NEGATIVE) Urine Bilirubin (NEGATIVE) Urine Urobilinogen (NORMAL) E.U./dL Ur Leukocyte Esterase (NEGATIVE) Urine RBC (0-5) /HPF Urine WBC (0-5) /HPF Ur Squamous Epith Cells (<= Few) Urine Bacteria (None Seen) /HPF Ur Microscopic Review Urine Culture Comments Blood Type Antibody Screen ABX Reporting Has patient been on IV antibiotics over the past 48 hours?: No Sepsis Event Note (H) - Evaluation Current Stage of Sepsis: Ruled out Assessment/Plan - Problem List (1) Closed left hip fracture Impression: 10/17 pt's surgery was done, pt is transferred to the medical nurse floor pain control PT/OT followup resume diet and home meds resume Plavix continue DVT prophylaxis (2) Pre-op evaluation Conclusion/Plan: [place] periop risk assessment completed with a TREVOR risk 0.2% and a preop mortality predicative score of 8 points which translates to 0.6% risk of perioperative mortality. UA and ecg to follow. Control HTN excursions by using lopressor IV preferably as this would improve perioperative risk for ACS. I query on her baseline dementia and or functional status as this may change perioperative risk. (3) Hypertensive urgency Conclusion/Plan: 10/17 stable now, continue home meds Sec to pain to left hip. IV hydralazine and or lopressor for perioperative BP excursion control. Resume lisinopril once tolerating PO however this may be challenging as she is mod-severe demented. ECG to follow. (4) Hypothyroid Conclusion/Plan: 10/17 check TSH, followup Resume synthroid at 75 mcg po daily. (5) Hyperlipidemia Conclusion/Plan: Lipid panel in am. Consider statin as she has hx CVA. (6) CKD (chronic kidney disease), stage II Conclusion/Plan: stable and slight improved, continue gently IVF IVF's to continue, correct lytes, on a ortega catheter to minimize urinary re tention post-op but may be a nidus for infection, aka UTI post op. (7) Dementia Conclusion/Plan: 10/17 pt is hx of advance dementia aspiration precaution, will consult with ST as needed Zyprexa prn continue support care (8) History of stroke Conclusion/Plan: 10/17 will continue Plavix on tomorrow continue PT/OT and support Qualifiers: Encounter type: initial encounter Qualified Code(s): S72.002A - Fracture of unspecified part of neck of left femur, initial encounter for closed fracture
--- NOTE | 2018-10-17 11:25 | CONSULTATION NOTE ---
DATE OF SERVICE: 10/17/2018 Physician: Ike Roper MD REFERRING PHYSICIAN: Dr. Johnnie Benoit of the Emergency Room Department. HISTORY OF PRESENT ILLNESS: Patient is a 73-year-old female status post cerebrovascular ac cident, which has resulted in a partial aphasia, who apparently had a fall Wednesday while going to [facility] with her . She was able to be a household ambulator without either a cane or walker prior to this accident. As a result of her fall, she complained of pain in her left hip. She was unable t o stand or weight bear. She was taken by her to the emergency room here at [facility] where x-rays showed essentially nondisplaced, minimally impacted left subcapital hip fracture. PAST MEDICAL HISTORY: Significant besides her prior CVA and partial aphasia. She also has mitochond rial myopathy. PHYSICAL EXAMINATION: The patient has tenderness on palpation over the anterior aspect of the left h ip. She has pain with hip range of motion noted. She is able to move her toes. Sensation appeared to be intact. Good capillary filling noted. RADIOLOGICAL DATA: X-rays show a minimally displaced subcapital hip fracture. ASSESSMENT 1. Closed nondisplaced left subcapital hip fracture. 2. History of mitochondrial myopathy. 3. Status post cerebrovascular accident, which has resulted in partial aphasia. 4. On Plavix for #3. 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 Pros and cons of surgical intervention were explained. Some of the risks kelley t are involved with surgery would include anesthesia risk, malunion, nonunion, infection, blood loss, nerve damage, deep venous thromboses, etc. His questions were answered as well. Patient wishes us to proceed with surgery. When discussing code status, she wishes us to only use pharmacological anthony ures to resuscitate her in the operating room, if need be. Does not want to be any more aggressive t walsh that should she go into cardiac arrest on the OR table. Patient's leg was marked. Consent has b een signed. TD: 10/17/2018 11:07
[2018-10-17] MEDS ORDERED: BUPIVACAINE 0.25%-EPI 1:200000 PF 30 ML VIAL ONE (12:07)
[2018-10-17] MEDS ORDERED: BUPIVACAINE 0.25%-EPI 1:200000 PF 30 ML VIAL SUBQ ONE ×2 (12:07→12:48)
[2018-10-17] MEDS ORDERED: LACTATED RINGERS 1,000 ML IV ONE ×4 (12:08)
[2018-10-17] MEDS ORDERED: DEXAMETHASONE 4 MG/ML VIAL IVP ONE (12:30)
[2018-10-17] MEDS ORDERED: PHENYLEPHRINE 50 MG/5 ML VIAL IV ONE (12:30)
[2018-10-17] MEDS ORDERED: ONDANSETRON 4 MG/2 ML VIAL IVP ONE (12:30)
[2018-10-17] MEDS ORDERED: LIDOCAINE-MPF 2% 5 ML VIAL IM ONE (12:30)
[2018-10-17] MEDS ORDERED: PROPOFOL 200 MG/20 ML VIAL IVP ONE (12:30)
[2018-10-17] MEDS ORDERED: MIDAZOLAM 2 MG/2 ML VIAL IVP ONE (12:30)
[2018-10-17] MEDS ORDERED: DOCUSATE SODIUM 100 MG CAPSULE PO PRN (13:00)
[2018-10-17] MEDS ORDERED: ONDANSETRON 4 MG/2 ML VIAL IVP PRN (13:00)
[2018-10-17] MEDS ORDERED: SENNA 8.6 MG TABLET PO PRN (13:00)
[2018-10-17] MEDS ORDERED: PROCHLORPERAZINE 10 MG/2 ML VIAL IVP PRN (13:00)
--- NOTE | 2018-10-17 13:11 | OPERATIVE REPORT ---
Operative Report - General Admit Date: 10/16/18 Procedure Date: 10/17/18 Planned Procedure: Cannulated screw fixation of left hip fracture Pre-Op Diagnosis: Nondisplaced, impacted left subcapital hip fracture Procedure Performed: Closed reduction and cannulated screw fixation of left hip fracture Post Op Diagnosis: Same - Procedure Note Primary Surgeon: Ezequiel Roper MD Anesthesia Provider: Shlomo Zaldivar CRNA Anesthesia Technique: General LMA IV Fluids (mL): 800 Estimated Blood Loss (mL): 50 Complications: None
--- NOTE | 2018-10-17 13:58 | OPERATIVE REPORT ---
DATE OF SERVICE: 10/17/2018 Physician: Ike Roper MD PREOPERATIVE DIAGNOSIS: Closed, nondisplaced, impacted left subcapital hip fracture. POSTOPERATIVE DIAGNOSIS: Closed, nondisplaced, impacted left subcapital hip fracture. PROCEDURE PERFORMED: Closed reduction and multiple cannulated screw fixation of left hip fracture. SURGEON: Ike Roper MD ANESTHESIA: General using LMA. ANESTHESIA PROVIDED: Shlomo Zaldivar CRNA DESCRIPTION OF PROCEDURE: Patient was taken to the operating room on the morning of 10/17/2018, wher mary she was placed under a general anesthetic without any problems. She was then positioned supine ont o the fracture table. Her right hip was then flexed and widely abducted and held with a well leg hol elma. Her fractured left lower extremity was then placed in axial traction with the leg internally ro tated about 30 degrees. Fluoroscopic views in AP and lateral projections showed good reduction of he r hip fracture and adequate visualization of the hip joint. We then prepped and draped the lateral a spect of her hip in the usual fashion for our procedure. Making a small lateral skin incision, we dissected down through the skin down to the lateral proximal femoral cortex. This is where we placed the first threaded-tip guidewire passing it with power thro ugh the proximal femur, femoral neck and into the femoral head. Satisfied with the position of this guide pin and the proper depth to within a few millimeters of subchondral bone, we then proceeded to insert 2 additional parallel guide pins, passing this again through the femoral neck into the femoral head within a few millimeters of subchondral bone. Satisfied with the position of our guide pins, w e then used the direct measuring guide and determined that we would use a total of three 7.[address] short threaded cannulated screws, 2 measuring 85 mm in length and 1 measuring 80 mm length. I th en perforated the lateral femoral cortex using the cannulated reamer over our inserted 3 guide pins. This was then followed up with the selected cannulated screws. The superior posterior screw, we obt ained a very good purchase in the bone as we compressed the fracture. The other 2 screws were not as good a bite, although we did get some bony purchase as we tightened the screws. Fluoroscopic views in the AP and lateral projection showed again maintenance in the reduction of our hip fracture as wel l as satisfactory position of our hardware. We removed our guide pins. We then irrigated the wound out thoroughly with saline. We then closed t he wound in layers using 1 stitch of 0 Vicryl to approximate the fascia juma layer, followed by sever al buried simple stitches of 2-0 Vicryl to close the subcutaneous tissues. Finally, skin clementine use d to close the skin wound. We injected 8 mL of 0.25% Marcaine with epinephrine to provide surgical i ncision anesthesia. We then dressed the wound using 4 x 4's and a Tegaderm dressing. The patient wa s transferred off the fracture table and taken to the recovery room in satisfactory condition. ESTIMATED BLOOD LOSS: 50 mL. REPLACEMENT: 800 mL crystalloid. INTRAOPERATIVE COMPLICATIONS: None. PLAN: Patient will be progressed in physical therapy as tolerated, walker ambulating, weightbearing as tolerated on this extremity. TD: 10/17/2018 13:28
--- NOTE | 2018-10-17 15:14 | XRAY Report ---
Reason: Left hip fracture. C-arm imaging Procedure Date: 10/17/2018 Accession Number: [id number] / [id number] Procedure: XR - Hip w/Pelvis 1V LT CPT Code: FULL RESULT: EXAM: FLUOROSCOPIC GUIDANCE EXAM DATE: 10/17/2018 12:32 PM. CLINICAL HISTORY: Left hip fracture. C-arm imaging. COMPARISON: None. FINDINGS: Partially threaded cannulated screws are seen over Benita wires in the fractured femoral neck. IMPRESSION: Fluoroscopic guidance provided for ORIF of left hip fracture. Total fluoroscopy time: 0.16 minutes. Number of images: 2. RADIA
[2018-10-17] MEDS: hydrALAZINE INJ 20 MG/ML VIAL IVP PRN (16:54)
[2018-10-17] MEDS: LORazepam 2 MG/ML VIAL IVP PRN (19:57)
[2018-10-17] MEDS: ceFAZolin 2 GM/50 ML 2 GM/50 ML BAG IV SCH (20:09)
[2018-10-17 20:25] LABS: HGB - HEMOGLOBIN 11.3 g/dL (12.0-16.0)
[2018-10-17] MEDS: CALCIUM CARBONATE CHEW 500 MG TABLET PO SCH (21:05)
[2018-10-17] MEDS: ATORVASTATIN 40 MG TABLET PO SCH (21:52)
[2018-10-18] MEDS: SODIUM CHLORIDE FLUSH 0.9% 10 ML SYRINGE IVP SCH ×5 (01:47→16:30)
[2018-10-18] MEDS: ceFAZolin 2 GM/50 ML 2 GM/50 ML BAG IV SCH (03:41)
[2018-10-18] MEDS: SODIUM CHLORIDE 0.9% 1,000 ML IV SCH ×2 (03:44→16:28)
[2018-10-18] MEDS: LORazepam 2 MG/ML VIAL IVP PRN (04:44)
[2018-10-18] MEDS: MORPHINE 2 MG/ML CARPUJECT IVP PRN ×2 (05:56→20:22)
[2018-10-18] MEDS: LEVOTHYROXINE 75 MCG TABLET PO SCH (05:56)
[2018-10-18 06:24] LABS: BASOPHILS # (AUTO) 0.1 10^3/uL (0.0-0.1); BASOPHILS % (AUTO) 0.7 %; EOSINOPHILS # (AUTO) 0.1 10^3/uL (0.0-0.7); EOSINOPHILS % (AUTO) 0.6 %; HGB - HEMOGLOBIN 10.4 g/dL (12.0-16.0); LYMPHOCYTES # (AUTO) 0.5 10^3/uL (1.5-3.5); LYMPHOCYTES % (AUTO) 6.2 %; MEAN CORPUSCULAR HEMOGLOBIN 31.2 pg (27.0-31.0); MEAN CORPUSCULAR HGB CONC 33.3 g/dL (32.0-36.0); MEAN CORPUSCULAR VOLUME 93.7 fL (81.0-99.0); MEAN PLATELET VOLUME 7.9 fL (7.9-10.8); MONOCYTES # (AUTO) 0.9 10^3/uL (0.0-1.0); MONOCYTES % (AUTO) 9.8 %; NEUTROPHILS # (AUTO) 7.2 10^3/uL (1.5-6.6); NEUTROPHILS % (AUTO) 82.7 %; PLT - PLATELET COUNT 188 10^3/uL (130-450); RED BLOOD COUNT 3.32 10^6/uL (4.20-5.40); RED CELL DISTRIBUTION WIDTH 14.5 % (12.0-15.0); WHITE BLOOD COUNT 8.7 x10^3/uL (4.8-10.8)
[2018-10-18 06:32] LABS: CALCIUM 8.1 mg/dL (8.5-10.3); CREATININE 0.8 mg/dL (0.4-1.0)
[2018-10-18] MEDS ORDERED: BISACODYL 10 MG SUPP PR ONE (07:45)
[2018-10-18] MEDS: CLOPIDOGREL 75 MG TABLET PO SCH (08:25)
[2018-10-18] MEDS: CHOLECALCIFEROL 1,000 UNIT TABLET PO SCH (08:25)
[2018-10-18] MEDS: LISINOPRIL 5 MG TABLET PO SCH (08:25)
[2018-10-18] MEDS: CALCIUM CARBONATE CHEW 500 MG TABLET PO SCH ×2 (08:25→20:18)
[2018-10-18] MEDS: ENOXAPARIN 30 MG/0.3 ML SYRINGE SUBQ SCH (08:25)
[2018-10-18] MEDS: MULTIVITAMIN TABLET PO SCH (08:25)
[2018-10-18] MEDS: POLYETHYLENE GLYCOL 3350 17 GM PACKET PO SCH (08:26)
[2018-10-18] MEDS ORDERED: CLOPIDOGREL 75 MG TABLET PO SCH (09:00)
--- NOTE | 2018-10-18 11:14 | PROVIDER PROGRESS NOTE ---
Subjective - Prog Note Date Prog Note Date: 10/18/18 Prog Note Time: 11:12 - Subjective Pt reports feeling: Improved (No pain complaints) Objective - Vital Signs/Intake & Output Vital Signs: Vital Signs x48h Temp Pulse Resp BP Pulse Ox 10/18/18 08:00 37.0 C 81 18 150/88 H 97 10/18/18 04:30 36.4 C L 85 18 158/79 H 98 Intake & Output: Intake & Output 10/15/18 10/16/18 10/17/18 10/18/18 23:59 23:59 23:59 23:59 Intake Total 2110 1275 Output Total 450 1325 725 Balance -450 785 550 - Lab Results Fish Bones: 10/18/18 06:17 10/18/18 06:17 Other Labs: Lab Results x24hrs 10/18/18 10/18/18 10/18/18 Range/Units 06:17 06:17 06:17 WBC 8.7 (4.8-10.8) x10^3/uL RBC 3.32 L (4.20-5.40) 10^6/uL Hgb 10.4 L (12.0-16.0) g/dL Hct 31.1 L (37.0-47.0) % MCV 93.7 (81.0-99.0) fL MCH 31.2 H (27.0-31.0) pg MCHC 33.3 (32.0-36.0) g/dL RDW 14.5 (12.0-15.0) % Plt Count 188 (130-450) 10^3/uL MPV 7.9 (7.9-10.8) fL Neut # (Auto) 7.2 H (1.5-6.6) 10^3/uL Lymph # (Auto) 0.5 L (1.5-3.5) 10^3/uL [place] # (Auto) 0.9 (0.0-1.0) 10^3/uL Eos # (Auto) 0.1 (0.0-0.7) 10^3/uL Baso # (Auto) 0.1 (0.0-0.1) 10^3/uL Absolute Nucleated RBC 0.00 x10^3/uL Nucleated RBC % 0.0 /100WBC Sodium 137 (135-145) mmol/L Potassium 3.7 (3.5-5.0) mmol/L Chloride 108 (101-111) mmol/L Carbon Dioxide 21 (21-32) mmol/L Anion Gap 8.0 (6-13) BUN 21 H (6-20) mg/dL Creatinine 0.8 (0.4-1.0) mg/dL Estimated GFR (MDRD) 71 L (>89) Glucose 129 H (70-100) mg/dL Calcium 8.1 L (8.5-10.3) mg/dL TSH 1.47 (0.34-5.60) uIU/mL 10/17/18 Range/Units 20:21 WBC (4.8-10.8) x10^3/uL RBC (4.20-5.40) 10^6/uL Hgb 11.3 L (12.0-16.0) g/dL Hct 34.0 L (37.0-47.0) % MCV (81.0-99.0) fL MCH (27.0-31.0) pg MCHC (32.0-36.0) g/dL RDW (12.0-15.0) % Plt Count (130-450) 10^3/uL MPV (7.9-10.8) fL Neut # (Auto) (1.5-6.6) 10^3/uL Lymph # (Auto) (1.5-3.5) 10^3/uL [place] # (Auto) (0.0-1.0) 10^3/uL Eos # (Auto) (0.0-0.7) 10^3/uL Baso # (Auto) (0.0-0.1) 10^3/uL Absolute Nucleated RBC x10^3/uL Nucleated RBC % /100WBC Sodium (135-145) mmol/L Potassium (3.5-5.0) mmol/L Chloride (101-111) mmol/L Carbon Dioxide (21-32) mmol/L Anion Gap (6-13) BUN (6-20) mg/dL Creatinine (0.4-1.0) mg/dL Estimated GFR (MDRD) (>89) Glucose (70-100) mg/dL Calcium (8.5-10.3) mg/dL TSH (0.34-5.60) uIU/mL - Other Results/Comments Other Results/Comments: EXAM: Dressing intact. Move hip with mild pain. Sitting up in chair without problem. Moves toes ok. Sensation ok. Sepsis Event Note (H) - Evaluation Current Stage of Sepsis: Ruled out Assessment/Plan - Problem List (1) Closed left hip fracture Impression: Satis post op PLAN: Mobilize as tolerated. Qualifiers: Encounter type: initial encounter Qualified Code(s): S72.002A - Fracture of unspecified part of neck of left femur, initial encounter for closed fracture
--- NOTE | 2018-10-18 13:49 | PROVIDER PROGRESS NOTE ---
Subjective - Prog Note Date Prog Note Date: 10/18/18 - Subjective Pt reports feeling: Improved Subjective: pt is reported to have good sleep on last night, pt is siting for breakfast, there is no complaint. This is day one status post of operation. Current Medications - Current Medications Current Medications: Active Medications Atorvastatin Calcium (Lipitor) 40 mg PO QPM [facility] Last Admin: 10/17/18 21:52 Dose: Not Given Calcium Carbonate/Glycine (Tums) 500 mg PO BID [facility] Last Admin: 10/18/18 08:25 Dose: 500 mg Cholecalciferol (Vitamin D3) 1,000 unit PO DAILY [facility] Last Admin: 10/18/18 08:25 Dose: 1,000 unit Clopidogrel Bisulfate (Plavix) 75 mg PO DAILY [facility] Last Admin: 10/18/18 08:25 Dose: 75 mg Docusate Sodium (Colace 100mg Capsule) 100 mg PO BID PRN PRN Reason: Constipation Enoxaparin Sodium (Lovenox) 30 mg SUBQ DAILY [facility] Last Admin: 10/18/18 08:25 Dose: 30 mg Hydralazine HCl (Apresoline Inj) 10 mg IVP Q4HR PRN PRN Reason: SBP>160 or DBP>100 Last Admin: 10/17/18 16:54 Dose: 10 mg Sodium Chloride (Normal Saline 0.9%) 1,000 mls @ 80 mls/hr IV .[id number] [facility] Last Admin: 10/18/18 03:44 Dose: 80 mls/hr Levothyroxine Sodium (Synthroid) 75 mcg PO QDAC [facility] Last Admin: 10/18/18 05:56 Dose: 75 mcg Lisinopril (Zestril) 5 mg PO DAILY [facility] Last Admin: 10/18/18 08:25 Dose: 5 mg Morphine Sulfate (Morphine (Carpuject)) 1 mg IVP Q2HR PRN PRN Reason: Pain 8 to 10 Last Admin: 10/18/18 05:56 Dose: 1 mg Multivitamins (Theragran) 1 tab PO DAILYWM [facility] Last Admin: 10/18/18 08:25 Dose: 1 tab Ondansetron HCl (Zofran Odt) 4 mg TL Q6HR PRN PRN Reason: Nausea / Vomiting Ondansetron HCl (Zofran Inj) 4 mg IVP Q6HR PRN PRN Reason: Nausea / Vomiting Polyethylene Glycol (Miralax) 17 gm PO DAILY [facility] Last Admin: 10/18/18 08:26 Dose: Not Given Prochlorperazine Edisylate (Compazine Inj) 10 mg IVP Q6HR PRN PRN Reason: Nausea / Vomiting Senna (Senokot) 17.2 mg PO Q12H PRN PRN Reason: Constipation Sodium Chloride (Normal Saline Flush 0.9%) 10 ml IVP 0100,0900,1700 [facility] Last Admin: 10/18/18 08:26 Dose: Not Given Sodium Chloride (Normal Saline Flush 0.9%) 10 ml IVP PRN PRN PRN Reason: NEEDED PER PROVIDER ORDERS Temazepam (Restoril) 15 mg PO QPM PRN PRN Reason: Insomnia Levothyroxine [Synthroid] 75 mcg ORAL DAILY 03/04/16 Lisinopril [Prinivil] 5 mg PO DAILY 03/04/16 Clopidogrel [Plavix] 75 mg ORAL DAILY 10/16/18 Atorvastatin Calcium 40 mg PO QPM 10/17/18 Multivitamin [Multiple Vitamins] 1 each PO DAILY 10/17/18 Objective - Vital Signs/Intake & Output Reviewed Vital Signs: Yes Vital Signs: Vital Signs x48h Temp Pulse Resp BP Pulse Ox 10/18/18 12:05 36.8 C 81 20 165/78 H 97 10/18/18 08:00 37.0 C 81 18 150/88 H 97 Intake & Output: Intake & Output 10/15/18 10/16/18 10/17/18 10/18/18 23:59 23:59 23:59 23:59 Intake Total 2110 1515 Output Total 450 1325 725 Balance -450 785 790 - Objective General Appearance: positive: No acute distress, Alert. negative: Lethargic Eyes Bilateral: positive: Normal inspection, PERRL, No lid inflammation, Conjunctivae nml ENT: positive: ENT inspection nml, Pharynx nml, No signs of dehydration. negative: Purulent nasal drainage, Pharyngeal erythema, Oral lesions Neck: positive: Nml inspection, Thyroid nml, No JVD, Trachea midline. negative: Thyromegaly, Lymphadenopathy (R), Lymphadenopathy (L), Stiff neck, Swelling/bruising, Tracheal deviation Respiratory: positive: Chest non-tender, No respiratory distress, Breath sounds nml. negative: Wheezes, Rales, Rhonchi Cardiovascular: positive: Regular rate & rhythm, No murmur, No gallop. negative: Irregularly irregular, Extrasystoles, Tachycardia, Bradycardia, JVD present, Systolic murmur, Diastolic murmur Peripheral Pulses: 2+ Radial (R), 2+ Radial (L), 2+ Dorsalis pedis (R), 2+ Dorsalis pedis (L) Abdomen: positive: Non-tender, No organomegaly, Nml bowel sounds, No distention. negative: Tenderness, Guarding, Rebound Back: positive: Nml inspection. negative: CVA tenderness (R), CVA tenderness (L) Skin: positive: Color nml, No rash, Warm, Dry. negative: Cyanosis, Diaphoresis, Pallor, Skin rash Extremities: positive: Non-tender, Nml appearance. negative: Calf tenderness, Joint swelling, Margi's sign/cords Neurologic/Psychiatric: positive: Mood/affect nml. negative: Weakness, Sensory loss, Facial droop, Slurred/abnml speech, Depressed mood/affect - Lab Results Fish Bones: 10/18/18 06:17 10/18/18 06:17 Other Labs: Lab Results x24hrs 10/18/18 10/18/18 10/18/18 Range/Units 06:17 06:17 06:17 WBC 8.7 (4.8-10.8) x10^3/uL RBC 3.32 L (4.20-5.40) 10^6/uL Hgb 10.4 L (12.0-16.0) g/dL Hct 31.1 L (37.0-47.0) % MCV 93.7 (81.0-99.0) fL MCH 31.2 H (27.0-31.0) pg MCHC 33.3 (32.0-36.0) g/dL RDW 14.5 (12.0-15.0) % Plt Count 188 (130-450) 10^3/uL MPV 7.9 (7.9-10.8) fL Neut # (Auto) 7.2 H (1.5-6.6) 10^3/uL Lymph # (Auto) 0.5 L (1.5-3.5) 10^3/uL [place] # (Auto) 0.9 (0.0-1.0) 10^3/uL Eos # (Auto) 0.1 (0.0-0.7) 10^3/uL Baso # (Auto) 0.1 (0.0-0.1) 10^3/uL Absolute Nucleated RBC 0.00 x10^3/uL Nucleated RBC % 0.0 /100WBC Sodium 137 (135-145) mmol/L Potassium 3.7 (3.5-5.0) mmol/L Chloride 108 (101-111) mmol/L Carbon Dioxide 21 (21-32) mmol/L Anion Gap 8.0 (6-13) BUN 21 H (6-20) mg/dL Creatinine 0.8 (0.4-1.0) mg/dL Estimated GFR (MDRD) 71 L (>89) Glucose 129 H (70-100) mg/dL Calcium 8.1 L (8.5-10.3) mg/dL TSH 1.47 (0.34-5.60) uIU/mL 10/17/18 Range/Units 20:21 WBC (4.8-10.8) x10^3/uL RBC (4.20-5.40) 10^6/uL Hgb 11.3 L (12.0-16.0) g/dL Hct 34.0 L (37.0-47.0) % MCV (81.0-99.0) fL MCH (27.0-31.0) pg MCHC (32.0-36.0) g/dL RDW (12.0-15.0) % Plt Count (130-450) 10^3/uL MPV (7.9-10.8) fL Neut # (Auto) (1.5-6.6) 10^3/uL Lymph # (Auto) (1.5-3.5) 10^3/uL [place] # (Auto) (0.0-1.0) 10^3/uL Eos # (Auto) (0.0-0.7) 10^3/uL Baso # (Auto) (0.0-0.1) 10^3/uL Absolute Nucleated RBC x10^3/uL Nucleated RBC % /100WBC Sodium (135-145) mmol/L Potassium (3.5-5.0) mmol/L Chloride (101-111) mmol/L Carbon Dioxide (21-32) mmol/L Anion Gap (6-13) BUN (6-20) mg/dL Creatinine (0.4-1.0) mg/dL Estimated GFR (MDRD) (>89) Glucose (70-100) mg/dL Calcium (8.5-10.3) mg/dL TSH (0.34-5.60) uIU/mL ABX Reporting Has patient been on IV antibiotics over the past 48 hours?: No Sepsis Event Note (H) - Evaluation Current Stage of Sepsis: Ruled out Assessment/Plan - Problem List (1) Closed left hip fracture Impression: 10/18 This is the day one status post of left hip operation pain control PT/OT followup continue diet and home meds continue Plavix continue DVT prophylaxis 10/17 pt's surgery was done, pt is transferred to the medical nurse floor pain control PT/OT followup resume diet and home meds resume Plavix continue DVT prophylaxis (2) Hypertensive urgency Conclusion/Plan: 10/17 stable now, continue home meds Sec to pain to left hip. IV hydralazine and or lopressor for perioperative BP excursion control. Resume lisinopril once tolerating PO however this may be challenging as she is mod-severe demented. ECG to follow. (3) Hypothyroid Conclusion/Plan: 10/18 normal TSH, continue synthroid 10/17 check TSH, followup Resume synthroid at 75 mcg po daily. (4) Hyperlipidemia Conclusion/Plan: Lipid panel in am. Consider statin as she has hx CVA. (5) CKD (chronic kidney disease), stage II Conclusion/Plan: stable and slight improved, continue gently IVF IVF's to continue, correct lytes, on a ortega catheter to minimize urinary retention post-op but may be a nidus for infection, aka UTI post op. (6) Dementia Conclusion/Plan: 10/18 stable 10/17 pt is hx of advance dementia aspiration precaution, will consult with ST as needed Zyprexa prn continue support care (7) History of stroke Conclusion/Plan: 10.18 continue Plavix, continue PT/OT 10/17 will continue Plavix on tomorrow continue PT/OT and support Qualifiers: Encounter type: initial encounter Qualified Code(s): S72.002A - Fracture of unspecified part of neck of left femur, initial encounter for closed fracture
--- NOTE | 2018-10-18 14:20 | XRAY Report ---
Reason: fracture left hip Procedure Date: 10/17/2018 Accession Number: [id number] / [id number] Procedure: [place] - OR C-Arm Procedure CPT Code: FULL RESULT: EXAM: FLUOROSCOPIC GUIDANCE EXAM DATE: 10/17/2018 01:45 PM. CLINICAL HISTORY: Fracture left hip. COMPARISON: None. FINDINGS: Images demonstrate Benita wires and partially threaded cannulated screws securing a left hip fracture. IMPRESSION: Fluoroscopic guidance provided for left hip ORIF. Total fluoroscopy time: 0.16 minutes. Number of images: 2. RADIA
[2018-10-18] MEDS: ATORVASTATIN 40 MG TABLET PO SCH (20:18)
[2018-10-18] MEDS: SODIUM CHLORIDE FLUSH 0.9% 10 ML SYRINGE IVP PRN (20:22)
[2018-10-19] MEDS: SODIUM CHLORIDE FLUSH 0.9% 10 ML SYRINGE IVP SCH ×4 (03:12→23:39)
[2018-10-19] MEDS: SODIUM CHLORIDE 0.9% 1,000 ML IV SCH ×2 (03:57→11:16)
[2018-10-19 05:48] LABS: BASOPHILS # (AUTO) 0.1 10^3/uL (0.0-0.1); BASOPHILS % (AUTO) 0.8 %; EOSINOPHILS # (AUTO) 0.1 10^3/uL (0.0-0.7); EOSINOPHILS % (AUTO) 1.8 %; LYMPHOCYTES # (AUTO) 0.8 10^3/uL (1.5-3.5); LYMPHOCYTES % (AUTO) 10.7 %; MEAN CORPUSCULAR HEMOGLOBIN 31.7 pg (27.0-31.0); MEAN CORPUSCULAR HGB CONC 34.6 g/dL (32.0-36.0); MEAN CORPUSCULAR VOLUME 91.7 fL (81.0-99.0); MEAN PLATELET VOLUME 8.1 fL (7.9-10.8); MONOCYTES # (AUTO) 0.9 10^3/uL (0.0-1.0); MONOCYTES % (AUTO) 12.4 %; NEUTROPHILS # (AUTO) 5.4 10^3/uL (1.5-6.6); NEUTROPHILS % (AUTO) 74.3 %; PLT - PLATELET COUNT 182 10^3/uL (130-450); RED BLOOD COUNT 3.14 10^6/uL (4.20-5.40); RED CELL DISTRIBUTION WIDTH 14.1 % (12.0-15.0); WHITE BLOOD COUNT 7.3 x10^3/uL (4.8-10.8)
[2018-10-19 05:57] LABS: CALCIUM 8.3 mg/dL (8.5-10.3); CREATININE 0.9 mg/dL (0.4-1.0)
[2018-10-19] MEDS: LEVOTHYROXINE 75 MCG TABLET PO SCH (06:58)
[2018-10-19] MEDS ORDERED: LISINOPRIL 20 MG TABLET PO SCH (09:00)
[2018-10-19] MEDS ORDERED: ENOXAPARIN 40 MG/0.4 ML SYRINGE SUBQ SCH (09:00)
[2018-10-19] MEDS: ENOXAPARIN 30 MG/0.3 ML SYRINGE SUBQ SCH (09:41)
[2018-10-19] MEDS: CLOPIDOGREL 75 MG TABLET PO SCH (09:41)
[2018-10-19] MEDS: POLYETHYLENE GLYCOL 3350 17 GM PACKET PO SCH (09:41)
[2018-10-19] MEDS: CHOLECALCIFEROL 1,000 UNIT TABLET PO SCH (09:42)
[2018-10-19] MEDS: MULTIVITAMIN TABLET PO SCH (09:42)
[2018-10-19] MEDS: CALCIUM CARBONATE CHEW 500 MG TABLET PO SCH ×2 (09:42→20:12)
[2018-10-19] MEDS: SODIUM CHLORIDE FLUSH 0.9% 10 ML SYRINGE IVP PRN ×2 (11:15→11:16)
[2018-10-19] MEDS: MORPHINE 2 MG/ML CARPUJECT IVP PRN (11:15)
--- NOTE | 2018-10-19 11:34 | PROVIDER PROGRESS NOTE ---
Subjective - Prog Note Date Prog Note Date: 10/19/18 - Subjective Pt reports feeling: Improved Subjective: pt is better, sitting bedside to eat her breakfast. Nurse report pt is better communication, eat the diet. Today is day two status post of hip repair Current Medications - Current Medications Current Medications: Active Medications Atorvastatin Calcium (Lipitor) 40 mg PO QPM [facility] Last Admin: 10/18/18 20:18 Dose: 40 mg Calcium Carbonate/Glycine (Tums) 500 mg PO BID [facility] Last Admin: 10/19/18 09:42 Dose: 500 mg Cholecalciferol (Vitamin D3) 1,000 unit PO DAILY [facility] Last Admin: 10/19/18 09:42 Dose: 1,000 unit Clopidogrel Bisulfate (Plavix) 75 mg PO DAILY [facility] Last Admin: 10/19/18 09:41 Dose: 75 mg Docusate Sodium (Colace 100mg Capsule) 100 mg PO BID PRN PRN Reason: Constipation Enoxaparin Sodium (Lovenox) 30 mg SUBQ DAILY [facility] Last Admin: 10/19/18 09:41 Dose: 30 mg Hydralazine HCl (Apresoline Inj) 10 mg IVP Q4HR PRN PRN Reason: SBP>160 or DBP>100 Last Admin: 10/17/18 16:54 Dose: 10 mg Sodium Chloride (Normal Saline 0.9%) 1,000 mls @ 80 mls/hr IV .[id number] [facility] Last Admin: 10/19/18 11:16 Dose: 80 mls/hr Levothyroxine Sodium (Synthroid) 75 mcg PO QDAC [facility] Last Admin: 10/19/18 06:58 Dose: Not Given Lisinopril (Zestril) 20 mg PO DAILY [facility] Last Admin: 10/19/18 09:42 Dose: 20 mg Morphine Sulfate (Morphine (Carpuject)) 1 mg IVP Q2HR PRN PRN Reason: Pain 8 to 10 Last Admin: 10/19/18 11:15 Dose: 1 mg Multivitamins (Theragran) 1 tab PO DAILYWM [facility] Last Admin: 10/19/18 09:42 Dose: 1 tab Ondansetron HCl (Zofran Odt) 4 mg TL Q6HR PRN PRN Reason: Nausea / Vomiting Ondansetron HCl (Zofran Inj) 4 mg IVP Q6HR PRN PRN Reason: Nausea / Vomiting Polyethylene Glycol (Miralax) 17 gm PO DAILY [facility] Last Admin: 10/19/18 09:41 Dose: 17 gm Prochlorperazine Edisylate (Compazine Inj) 10 mg IVP Q6HR PRN PRN Reason: Nausea / Vomiting Senna (Senokot) 17.2 mg PO Q12H PRN PRN Reason: Constipation Last Admin: 10/19/18 09:42 Dose: 17.2 mg Sodium Chloride (Normal Saline Flush 0.9%) 10 ml IVP 0100,0900,1700 [facility] Last Admin: 10/19/18 09:42 Dose: Not Given Sodium Chloride (Normal Saline Flush 0.9%) 10 ml IVP PRN PRN PRN Reason: NEEDED PER PROVIDER ORDERS Last Admin: 10/19/18 11:16 Dose: 10 ml Temazepam (Restoril) 15 mg PO QPM PRN PRN Reason: Insomnia Levothyroxine [Synthroid] 75 mcg ORAL DAILY 03/04/16 Lisinopril [Prinivil] 5 mg PO DAILY 03/04/16 Clopidogrel [Plavix] 75 mg ORAL DAILY 10/16/18 Atorvastatin Calcium 40 mg PO QPM 10/17/18 Multivitamin [Multiple Vitamins] 1 each PO DAILY 10/17/18 Objective - Vital Signs/Intake & Output Reviewed Vital Signs: Yes Vital Signs: Vital Signs x48h Temp Pulse Resp BP Pulse Ox 10/19/18 09:27 37.2 C 86 18 172/83 H 98 Intake & Output: Intake & Output 10/16/18 10/17/18 10/18/18 10/19/18 23:59 23:59 23:59 23:59 Intake Total 2110 2715 1672.667 Output Total 450 1325 1800 200 Balance -450 210 244 4879.667 - Objective General Appearance: positive: No acute distress, Alert. negative: Lethargic Eyes Bilateral: positive: Normal inspection, PERRL, No lid inflammation, Conjunctivae nml ENT: positive: ENT inspection nml, Pharynx nml, No signs of dehydration. negative: Purulent nasal drainage, Pharyngeal erythema, Oral lesions Neck: positive: Nml inspection, Thyroid nml, No JVD, Trachea midline. negative: Thyromegaly, Lymphadenopathy (R), Lymphadenopathy (L), Stiff neck, Swelling/bruising, Tracheal deviation Respiratory: positive: Chest non-tender, No respiratory distress, Breath sounds nml. negative: Wheezes, Rales, Rhonchi Cardiovascular: positive: Regular rate & rhythm, No murmur, No gallop. negative: Irregularly irregular, Extrasystoles, Tachycardia, Bradycardia, JVD present, Systolic murmur, Diastolic murmur Peripheral Pulses: 2+ Radial (R), 2+ Radial (L), 2+ Dorsalis pedis (R), 2+ Dorsalis pedis (L) Abdomen: positive: Non-tender, No organomegaly, Nml bowel sounds, No distention. negative: Tenderness, Guarding, Rebound Back: positive: Nml inspection. negative: CVA tenderness (R), CVA tenderness (L) Skin: positive: Color nml, No rash, Warm, Dry. negative: Cyanosis, Diaphoresis, Pallor Extremities: positive: Nml appearance. negative: Calf tenderness, Margi's sign/cords Neurologic/Psychiatric: positive: Mood/affect nml. negative: Weakness, Sensory loss, Facial droop, Slurred/abnml speech, Depressed mood/affect - Lab Results Fish Bones: 10/19/18 05:23 10/19/18 05:23 Other Labs: Lab Results x24hrs 10/19/18 10/19/18 Range/Units 05:23 05:23 WBC 7.3 (4.8-10.8) x10^3/uL RBC 3.14 L (4.20-5.40) 10^6/uL Hgb 10.0 L (12.0-16.0) g/dL Hct 28.8 L (37.0-47.0) % MCV 91.7 (81.0-99.0) fL MCH 31.7 H (27.0-31.0) pg MCHC 34.6 (32.0-36.0) g/dL RDW 14.1 (12.0-15.0) % Plt Count 182 (130-450) 10^3/uL MPV 8.1 (7.9-10.8) fL Neut # (Auto) 5.4 (1.5-6.6) 10^3/uL Lymph # (Auto) 0.8 L (1.5-3.5) 10^3/uL [place] # (Auto) 0.9 (0.0-1.0) 10^3/uL Eos # (Auto) 0.1 (0.0-0.7) 10^3/uL Baso # (Auto) 0.1 (0.0-0.1) 10^3/uL Absolute Nucleated RBC 0.00 x10^3/uL Nucleated RBC % 0.0 /100WBC Sodium 136 (135-145) mmol/L Potassium 3.5 (3.5-5.0) mmol/L Chloride 106 (101-111) mmol/L Carbon Dioxide 22 (21-32) mmol/L Anion Gap 8.0 (6-13) BUN 17 (6-20) mg/dL Creatinine 0.9 (0.4-1.0) mg/dL Estimated GFR (MDRD) 62 L (>89) Glucose 109 H (70-100) mg/dL Calcium 8.3 L (8.5-10.3) mg/dL ABX Reporting Has patient been on IV antibiotics over the past 48 hours?: No Sepsis Event Note (H) - Evaluation Current Stage of Sepsis: Ruled out Assessment/Plan - Problem List (1) Closed left hip fracture Impression: 10/19 today is day two status post of left hip repair continue PT/OT continue pain control 10/18 This is the day one status post of left hip operation pain control PT/OT followup continue diet and home meds continue Plavix continue DVT prophylaxis 10/17 pt's surgery was done, pt is transferred to the medical nurse floor pain control PT/OT followup resume diet and home meds resume Plavix continue DVT prophylaxis (2) Hypertensive urgency Conclusion/Plan: 10/19 increase Lisinopril to 20 mg from 5 mg continue hydralazine PRN vital monitor 10/17 stable now, continue home meds Sec to pain to left hip. IV hydralazine and or lopressor for perioperative BP excursion control. Resume lisinopril once tolerating PO however this may be challenging as she is mod-severe demented. ECG to follow. (3) Hypothyroid Conclusion/Plan: 10/18 normal TSH, continue synthroid 10/17 check TSH, followup Resume synthroid at 75 mcg po daily. (4) Hyperlipidemia Conclusion/Plan: Lipid panel in am. Consider statin as she has hx CVA. (5) CKD (chronic kidney disease), stage II Conclusion/Plan: stable and slight improved, continue gently IVF IVF's to continue, correct lytes, on a ortega catheter to minimize urinary retention post-op but may be a nidus for infection, aka UTI post op. (6) Dementia Conclusion/Plan: 10/18 stable 10/17 pt is hx of advance dementia aspiration precaution, will consult with ST as needed Zyprexa prn continue support care (7) History of stroke Conclusion/Plan: 10.18 continue Plavix, continue PT/OT 10/17 will continue Plavix on tomorrow continue PT/OT and support Qualifiers: Encounter type: initial encounter Qualified Code(s): S72.002A - Fracture of unspecified part of neck of left femur, initial encounter for closed fracture
--- NOTE | 2018-10-19 11:39 | PROVIDER PROGRESS NOTE ---
Subjective - Prog Note Date Prog Note Date: 10/19/18 Prog Note Time: 11:37 - Subjective Pt reports feeling: Improved (No pain complaints) Objective - Vital Signs/Intake & Output Vital Signs: Vital Signs x48h Temp Pulse Resp BP Pulse Ox 10/19/18 09:27 37.2 C 86 18 172/83 H 98 Intake & Output: Intake & Output 10/16/18 10/17/18 10/18/18 10/19/18 23:59 23:59 23:59 23:59 Intake Total 2110 2715 1672.667 Output Total 450 1325 1800 200 Balance -450 259 622 4934.667 - Lab Results Fish Bones: 10/19/18 05:23 10/19/18 05:23 Other Labs: Lab Results x24hrs 10/19/18 10/19/18 Range/Units 05:23 05:23 WBC 7.3 (4.8-10.8) x10^3/uL RBC 3.14 L (4.20-5.40) 10^6/uL Hgb 10.0 L (12.0-16.0) g/dL Hct 28.8 L (37.0-47.0) % MCV 91.7 (81.0-99.0) fL MCH 31.7 H (27.0-31.0) pg MCHC 34.6 (32.0-36.0) g/dL RDW 14.1 (12.0-15.0) % Plt Count 182 (130-450) 10^3/uL MPV 8.1 (7.9-10.8) fL Neut # (Auto) 5.4 (1.5-6.6) 10^3/uL Lymph # (Auto) 0.8 L (1.5-3.5) 10^3/uL [place] # (Auto) 0.9 (0.0-1.0) 10^3/uL Eos # (Auto) 0.1 (0.0-0.7) 10^3/uL Baso # (Auto) 0.1 (0.0-0.1) 10^3/uL Absolute Nucleated RBC 0.00 x10^3/uL Nucleated RBC % 0.0 /100WBC Sodium 136 (135-145) mmol/L Potassium 3.5 (3.5-5.0) mmol/L Chloride 106 (101-111) mmol/L Carbon Dioxide 22 (21-32) mmol/L Anion Gap 8.0 (6-13) BUN 17 (6-20) mg/dL Creatinine 0.9 (0.4-1.0) mg/dL Estimated GFR (MDRD) 62 L (>89) Glucose 109 H (70-100) mg/dL Calcium 8.3 L (8.5-10.3) mg/dL - Other Results/Comments Other Results/Comments: EXAM: Dressing intact. Moves hip with mild pain. Up on floor. N/V ok distally Sepsis Event Note (H) - Evaluation Current Stage of Sepsis: Ruled out Assessment/Plan - Problem List (1) Closed left hip fracture Impression: satis post op PLAN: To SNF. Continue walker ambulate - WBAT on left. Follow up in clinic in 2 weeks for clementine out and new XR. Qualifiers: Qualified Code(s): S72.002A - Fracture of unspecified part of neck of left femur, initial encounter for closed fracture
[2018-10-19] MEDS ORDERED: cloNIDine 0.1 MG TABLET PO PRN (14:56)
[2018-10-19] MEDS: ATORVASTATIN 40 MG TABLET PO SCH (20:13)
[2018-10-20] MEDS: SODIUM CHLORIDE 0.9% 1,000 ML IV SCH (01:44)
[2018-10-20] MEDS ORDERED: SODIUM CHLORIDE FLUSH 0.9% 10 ML SYRINGE ONE (06:53)
[2018-10-20 07:50] LABS: BASOPHILS # (AUTO) 0.1 10^3/uL (0.0-0.1); BASOPHILS % (AUTO) 0.9 %; EOSINOPHILS # (AUTO) 0.4 10^3/uL (0.0-0.7); EOSINOPHILS % (AUTO) 6.5 %; HGB - HEMOGLOBIN 9.8 g/dL (12.0-16.0); LYMPHOCYTES # (AUTO) 0.8 10^3/uL (1.5-3.5); LYMPHOCYTES % (AUTO) 14.1 %; MEAN CORPUSCULAR HEMOGLOBIN 31.7 pg (27.0-31.0); MEAN CORPUSCULAR HGB CONC 34.9 g/dL (32.0-36.0); MEAN CORPUSCULAR VOLUME 90.8 fL (81.0-99.0); MEAN PLATELET VOLUME 8.3 fL (7.9-10.8); MONOCYTES # (AUTO) 0.7 10^3/uL (0.0-1.0); MONOCYTES % (AUTO) 11.9 %; NEUTROPHILS # (AUTO) 3.7 10^3/uL (1.5-6.6); NEUTROPHILS % (AUTO) 66.6 %; PLT - PLATELET COUNT 175 10^3/uL (130-450); RED CELL DISTRIBUTION WIDTH 14.1 % (12.0-15.0); WHITE BLOOD COUNT 5.5 x10^3/uL (4.8-10.8)
[2018-10-20 07:59] LABS: ALBUMIN 2.9 g/dL (3.2-5.5); BILIRUBIN,TOTAL 0.9 mg/dL (0.2-1.0); CALCIUM 8.3 mg/dL (8.5-10.3); CREATININE 0.8 mg/dL (0.4-1.0); TOTAL PROTEIN 5.8 g/dL (6.7-8.2)
[2018-10-20] MEDS: CLOPIDOGREL 75 MG TABLET PO SCH (08:22)
[2018-10-20] MEDS: MULTIVITAMIN TABLET PO SCH (08:22)
[2018-10-20] MEDS: ENOXAPARIN 30 MG/0.3 ML SYRINGE SUBQ SCH (08:23)
[2018-10-20] MEDS: LISINOPRIL 20 MG TABLET PO SCH ×2 (08:23→11:24)
[2018-10-20] MEDS: POLYETHYLENE GLYCOL 3350 17 GM PACKET PO SCH (08:23)
[2018-10-20] MEDS: CHOLECALCIFEROL 1,000 UNIT TABLET PO SCH (08:23)
[2018-10-20] MEDS: LEVOTHYROXINE 75 MCG TABLET PO SCH (08:23)
[2018-10-20] MEDS: CALCIUM CARBONATE CHEW 500 MG TABLET PO SCH (08:23)
[2018-10-20] MEDS: SODIUM CHLORIDE FLUSH 0.9% 10 ML SYRINGE IVP SCH (08:24)
[2018-10-20 12:22] VITALS: BP 157/91
--- NOTE | 2018-10-20 12:26 | Discharge Plan ---
"Discharge Plan for SNF / ESTEFANIA - Discharge Plan And Transition Orders Disposition: 03 SNF DC/Xfer Condition: Poor Allergies and Adverse Reactions: Allergies Allergy/AdvReac Type Severity Reaction Status Date / Time No Known Drug Allergies Allergy Verified 10/16/18 16:07 - SNF / JAIL Transition Orders Admit to (Facility): [facility] Under the care of (Name): Provider of [facility] or PCP Ben Galindo Discharge Diagnosis: status post of left hip repair, Dementia, hypothyroid, HTN, hyperlipidemia, CKD stageII Medicare Certification Statement: I certify that [facility] is medically necessary on a continuing basis for any of the conditions for which she/he is receiving care during hospitalization. Notify PCP of admission and forward orders to primary provider for signature. Weight on admission and: Daily Call PCP immediately if weight increases by: 2 kg Other Notification Orders: Call PCP immediately if patient develops dyspnea, chest pain/tightness or edema. House Bowel Program: Yes Additional Bowel Program Orders: If no BM after 2 days, nurse may give M.O.M. 30ml PO PRN and/or ducolax Supp 1 ID and/or NIEVES 250mg P.O., and/or senna 1-2 tabs PO. On day 3 nurse may give repeat above order until residents constipation is resolved. Annual Influenza Vaccine (between Apr 23 and November 20): Yes Two-step PPD per [facility] [phone] or approved exception documents: Yes Treatments & Other Orders: pt may followup medical provider of [facility] when pt is arrival to [facility]. Pt may Continue walker ambulate - WBAT on left. Pt may Follow up in clinic in 2 weeks for clementine out and new XR. Medication Orders: PLEASE REFER TO THE DISCHARGE MEDICATION LIST. Insulin Orders?: No - Medications New Prescriptions: Acetaminophen [Tylenol] 650 mg PO Q6H PRN #30 tablet PRN Reason: PRN PAIN &/OR FEVER Alendronate [Fosamax] 70 mg PO Q7D #2 tablet Cholecalciferol (Vitamin D3) [Vitamin D3] 1,000 unit PO DAILY #10 capsule Lisinopril [Zestril] 40 mg PO DAILY #5 tablet - Diet Type: Geriatric Texture: Regular Liquids: Thin May have monthly special meal: Yes - Therapies | Activity Therapy: Evaluation | Treat if indicated: PT, OT Rehabilitation Potential: Maximize functional status Activity: Activity as Tolerated Additional Instructions: pt may followup medical provider of [facility] when pt is arrival to [facility]. Pt may Continue walker ambulate - WBAT on left. Pt may Follow up in clinic in 2 weeks for clementine out and new XR."
--- NOTE | 2018-10-20 12:51 | DISCHARGE SUMMARY ---
"Discharge Summary Discharge Date: 10/20/18 Discharging Provider: CAVAZOS Primary Care Provider: Ben Galindo Condition at Discharge: Poor Discharge Disposition: 03 SNF DC/Xfer Discharge Facility Name: [facility] - DIAGNOSES Admission Diagnoses: (1) Closed left hip fracture (2) Pre-op evaluation (3) Hypertensive urgency (4) Hypothyroid (5) Hyperlipidemia (6) CKD (chronic kidney disease), stage II (7) Dementia, advanced (8) History of stroke Discharge Diagnoses with Status of Each Condition: (1) Closed left hip fracture Pt had hip repaired, and continue to SNF for PT/OT training (2) Pre-op evaluation resolved (3) Hypertensive urgency pt is prescribed Lisinopril 40 mg daily, continue management at SNF, followup PCP (4) Hypothyroid resume home meds (5) Hyperlipidemia resume home meds (6) CKD (chronic kidney disease), stage II improved, continue managed by SNF and PCP (7) Dementia, advanced stable, as her baseline (8) History of stroke resume home Plavix, and Statin - HPI History of Present Illness: refer from Dr. Wright's HPI on 10/16/18 for pt as the followin-year-old female with hx significant for HTN, Dementia, Hyperlipidemia, osteoporosis, chronic hearing and vision loss who ambulates idepedently p/w with having a mechanical fall at ground level with left hip pain. Patient had landing onto left side. Noted pain and was unable to stand and weight bear on the left. Taken to ED where XR show an impacted, minimally displaced left subcapital hip fracture. She is currently on plavix. On initial exam LROM to left hip to adduction and abduction as well as flexion of hip with confirmed left femoral neck fracture seen on Xray of hip/pelvis. CT spine shows no acute vertebral fractures and labs were essentially unremarkable with the exception of a basel ine CKD stage 2 with a cr of 1.0. Patient to be admitted, medically managed and preoperative evaluation of medical/cardiac risk stratification for anticipated left hip surgical correction. - CONSULTS | PROCEDURES Consultations: Dr. Ike Roper Procedures: Hip repair - HOSPITAL COURSE Hospital Course: pt was admitted for fall, and found out to have left hip fracture. pt had left hip repair, done by orthopedics surgeon. pt had PT/OT evaluation and treatment. PT/OT recommend pt be d/c SNF for continuing training. Pt is d/c to [facility] - ALLERGIES Allergies/Adverse Reactions: Allergies Allergy/AdvReac Type Severity Reaction Status Date / Time No Known Drug Allergies Allergy Verified 10/16/18 16:07 - MEDICATIONS Home Medications: Ambulatory Orders Medication Instructions Recorded Confirmed Levothyroxine [Synthroid] 75 mcg ORAL DAILY 03/04/16 10/17/18 Clopidogrel [Plavix] 75 mg ORAL DAILY 10/16/18 10/16/18 Atorvastatin Calcium 40 mg PO QPM 10/17/18 10/17/18 Multivitamin [Multiple Vitamins] 1 each PO DAILY 10/17/18 10/17/18 Acetaminophen [Tylenol] 650 mg PO Q6H PRN #30 tablet 10/20/18 Alendronate [Fosamax] 70 mg PO Q7D #2 tablet 10/20/18 Cholecalciferol (Vitamin D3) 1,000 unit PO DAILY #10 capsule 10/20/18 [Vitamin D3] Lisinopril [Zestril] 40 mg PO DAILY #5 tablet 10/20/18 - PHYSICAL EXAM AT DISCHARGE General Appearance: positive: No acute distress, Alert. negative: Lethargic Eyes Bilateral: positive: Normal inspection, PERRL, No lid inflammation, Conjunctivae nml ENT: positive: ENT inspection nml, Pharynx nml, No signs of dehydration. negative: Purulent nasal drainage, Pharyngeal erythema, Oral lesions Neck: positive: Nml inspection, Thyroid nml, No JVD, Trachea midline. negative: Thyromegaly, Lymphadenopathy (R), Lymphadenopathy (L), Stiff neck, Swelling/bruising, Tracheal deviation Respiratory: positive: Chest non-tender, No respiratory distress, Breath sounds nml. negative: Wheezes, Rales, Rhonchi Cardiovascular: positive: Regular rate & rhythm, No murmur, No gallop. negative: Irregularly irregular, Extrasystoles, Tachycardia, Bradycardia, JVD present, Systolic murmur, Diastolic murmur Peripheral Pulses: positive: 2+ Abdomen: positive: Non-tender, No organomegaly, Nml bowel sounds, No distention. negative: Tenderness, Guarding, Rebound Back: positive: Nml inspection. negative: CVA tenderness (R), CVA tenderness (L) Skin: positive: Color nml, No rash, Warm, Dry. negative: Cyanosis, Diaphoresis, Pallor Extremities: positive: Non-tender, Nml appearance. negative: Calf tenderness, Joint swelling, Margi's sign/cords Neurologic/Psychiatric: negative: Weakness, Sensory loss, Facial droop, Slurred/abnml speech, Depressed mood/affect - LABS Result Diagrams: 10/20/18 07:40 10/20/18 07:40 - SEPSIS Current Stage of Sepsis: Ruled out - FOLLOW UP Follow Up: pt may followup medical provider of [facility] when pt is arrival to [facility]. Pt may Continue walker ambulate - WBAT on left. Pt may Follow up in clinic in 2 weeks for clementine out and new XR. - TIME SPENT Time Spent in Discharge (Minutes): 50"
--- NOTE | 2018-10-20 13:44 | PROVIDER PROGRESS NOTE ---
Subjective - Prog Note Date Prog Note Date: 10/20/18 Prog Note Time: 13:43 - Subjective Pt reports feeling: Improved Objective - Vital Signs/Intake & Output Vital Signs: Vital Signs x48h Temp Pulse Resp BP Pulse Ox 10/20/18 12:21 79 157/91 H 10/20/18 08:00 36.4 C L 87 18 172/104 H 99 Intake & Output: Intake & Output 10/17/18 10/18/18 10/19/18 10/20/18 23:59 23:59 23:59 23:59 Intake Total 2110 2715 2171.334 2392.667 Output Total 1325 1800 500 200 Balance 840 783 1089.334 2192.667 - Lab Results Fish Bones: 10/20/18 07:40 10/20/18 07:40 Other Labs: Lab Results x24hrs 10/20/18 10/20/18 Range/Units 07:40 07:40 WBC 5.5 (4.8-10.8) x10^3/uL RBC 3.10 L (4.20-5.40) 10^6/uL Hgb 9.8 L (12.0-16.0) g/dL Hct 28.2 L (37.0-47.0) % MCV 90.8 (81.0-99.0) fL MCH 31.7 H (27.0-31.0) pg MCHC 34.9 (32.0-36.0) g/dL RDW 14.1 (12.0-15.0) % Plt Count 175 (130-450) 10^3/uL MPV 8.3 (7.9-10.8) fL Neut # (Auto) 3.7 (1.5-6.6) 10^3/uL Lymph # (Auto) 0.8 L (1.5-3.5) 10^3/uL [place] # (Auto) 0.7 (0.0-1.0) 10^3/uL Eos # (Auto) 0.4 (0.0-0.7) 10^3/uL Baso # (Auto) 0.1 (0.0-0.1) 10^3/uL Absolute Nucleated RBC 0.00 x10^3/uL Nucleated RBC % 0.0 /100WBC Sodium 136 (135-145) mmol/L Potassium 4.1 (3.5-5.0) mmol/L Chloride 104 (101-111) mmol/L Carbon Dioxide 23 (21-32) mmol/L Anion Gap 9.0 (6-13) BUN 17 (6-20) mg/dL Creatinine 0.8 (0.4-1.0) mg/dL Estimated GFR (MDRD) 71 L (>89) Glucose 103 H (70-100) mg/dL Calcium 8.3 L (8.5-10.3) mg/dL Total Bilirubin 0.9 (0.2-1.0) mg/dL AST 71 H (10-42) IU/L ALT 13 (10-60) IU/L Alkaline Phosphatase 36 L (42-121) IU/L Total Protein 5.8 L (6.7-8.2) g/dL Albumin 2.9 L (3.2-5.5) g/dL Globulin 2.9 (2.1-4.2) g/dL Albumin/Globulin Ratio 1.0 (1.0-2.2) - Other Results/Comments Other Results/Comments: EXAM: Wound - benign. Walking with assistance on floor. N/V ok distally Sepsis Event Note (H) - Evaluation Current Stage of Sepsis: Ruled out Assessment/Plan - Problem List (1) Closed left hip fracture Impression: satis post op PLAN: To SNF for continued post op care. RTC in 2 weeks for clementine out and new XR. Qualifiers: Encounter type: initial encounter Qualified Code(s): S72.002A - Fracture of unspecified part of neck of left femur, initial encounter for closed fracture
== END 2018-10-20 15:17 | DRG 482 ==
LOC: EDUNIT# → ED 15:54 → MS2 18:48
PROVIDERS: ADMIT Specialist; ATTEND Nurse Practitioner Gerontology
PROC: 0QS704Z Reposition Left Upper Femur with Internal Fixation Device, Open Approach (ICD-10-PCS; principal; 2018-10-16)
DX: S72.002A Fracture of unspecified part of neck of left femur, initial encounter for closed fracture (principal); F03.90 Unspecified dementia, unspecified severity, without behavioral disturbance, psychotic disturbance, mood disturbance, and anxiety; I10 Essential (primary) hypertension; E78.00 Pure hypercholesterolemia, unspecified; S72.012A Unspecified intracapsular fracture of left femur, initial encounter for closed fracture; I16.0 Hypertensive urgency; E78.5 Hyperlipidemia, unspecified; R47.01 Aphasia; I12.9 Hypertensive chronic kidney disease with stage 1 through stage 4 chronic kidney disease, or unspecified chronic kidney disease; N18.2 Chronic kidney disease, stage 2 (mild); E03.9 Hypothyroidism, unspecified; I69.920 Aphasia following unspecified cerebrovascular disease; I69.898 Other sequelae of other cerebrovascular disease; H91.90 Unspecified hearing loss, unspecified ear; H54.7 Unspecified visual loss; G71.3 Mitochondrial myopathy, not elsewhere classified; M81.0 Age-related osteoporosis without current pathological fracture; W18.30XA Fall on same level, unspecified, initial encounter; Z78.1 Physical restraint status; Z79.02 Long term (current) use of antithrombotics/antiplatelets
CPT/HCPCS: 36415; 51702; 70450; 72125; 72170; 80048; 80053; 80061; 81001; 81003; 82652; 83690; 83721; 84443; 85014; 85018; 85025; 85610; 86850; 86900; 86901; 87086; 99283; 99284; 99285

== ENCOUNTER 2018-12-31 15:51 | Outpatient (CLI) | payer MEDICARE, OTHER | END 2018-12-31 15:52 | disposition critical access hospital (66) | LOC: EMS 15:51 | PROVIDERS: ATTEND Surgery | DX: R53.1 Weakness (principal) | CPT/HCPCS: A0425; A0429 ==

== ENCOUNTER 2018-12-31 16:10 | Emergency (ER) | payer MEDICARE, OTHER ==
--- NOTE | 2018-12-31 16:21 | ED Physician Documentation ---
PD HPI FOCAL NEURO - Stated complaint Stated Complaint: POSS TIA - History obtained from History obtained from: EMS - History of Present Illness Timing - onset: Today (This is a very demented 73-year-old woman who presents by ambulance for concern for TIA. All of the initial history is from the rn nursery as the patient is very demented and her is not here on initial arrival but I am to understand he is on his way. Reportedly had several hours of right arm weakness today now resolved.) Review of Systems Unable to obtain: Dementia PD PAST MEDICAL HISTORY - Past Medical History Cardiovascular: Hypertension, High cholesterol Respiratory: None Neuro: Dementia Endocrine/Autoimmune: HyPOthyroidism GI: None HEEL SCOURER: None : None HEENT: Chronic vision loss, Chronic hearing loss Psych: None Musculoskeletal: None, Osteoporosis Derm: None - Past Surgical History Past Surgical History: Yes HEENT: Other - Present Medications Home Medications: Ambulatory Orders Medication Instructions Recorded Confirmed Levothyroxine [Synthroid] 75 mcg ORAL DAILY 03/04/16 10/17/18 Clopidogrel [Plavix] 75 mg ORAL DAILY 10/16/18 10/16/18 Atorvastatin Calcium 40 mg PO QPM 10/17/18 10/17/18 Multivitamin [Multiple Vitamins] 1 each PO DAILY 10/17/18 10/17/18 Acetaminophen [Tylenol] 650 mg PO Q6H PRN #30 tablet 10/20/18 Alendronate [Fosamax] 70 mg PO Q7D #2 tablet 10/20/18 Cholecalciferol (Vitamin D3) 1,000 unit PO DAILY #10 capsule 10/20/18 [Vitamin D3] Lisinopril [Zestril] 40 mg PO DAILY #5 tablet 10/20/18 Amox/Clav 875/125 [Augmentin] 1 each PO Q12H #14 tablet 12/31/18 - Allergies Allergies/Adverse Reactions: Allergies Allergy/AdvReac Type Severity Reaction Status Date / Time No Known Drug Allergies Allergy Verified 10/16/18 16:07 - Social History Does the pt smoke?: No Smoking Status: Unknown if ever smoked Does the pt drink ETOH?: No Does the pt have substance abuse?: No - Immunizations Immunizations are current?: Yes - POLST Patient has POLST: No PD ED PE NORMAL - Vitals Vital signs reviewed: Yes - General General: Other (She is alert, she really is completely disoriented. She follows simple commands but cannot even verbalize her name. 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, No motor deficit, No sensory deficit Eye Opening: Spontaneous Motor: Obeys Commands Verbal: Inappropriate GCS Score: 13 - Psych Psych: Normal mood, Normal affect Results - Vitals Vitals: Vital Signs - 24 hr 12/31/18 12/31/18 16:12 18:03 Temperature 36.8 C 36.5 C Heart Rate 82 92 Respiratory 14 15 Rate Blood Pressure 137/81 H 144/81 H O2 Saturation 99 99 Oxygen O2 Source Room air - Labs Labs: Laboratory Tests 12/31/18 12/31/18 16:24 16:24 WBC 7.0 RBC 3.32 L Hgb 10.7 L Hct 31.0 L MCV 93.3 MCH 32.1 H MCHC 34.4 RDW 15.0 Plt Count 273 MPV 7.0 L Neut # (Auto) 4.5 Lymph # (Auto) 1.3 L [place] # (Auto) 0.7 Eos # (Auto) 0.4 Baso # (Auto) 0.1 Absolute Nucleated RBC 0.00 Nucleated RBC % 0.0 Sodium 131 L Potassium 4.3 Chloride 97 L Carbon Dioxide 24 Anion Gap 10.0 BUN 31 H Creatinine 1.1 H Estimated GFR (MDRD) 49 L Glucose 111 H Calcium 8.9 Total Bilirubin 0.5 AST 22 ALT 16 Alkaline Phosphatase 48 Total Protein 6.2 L Albumin 3.7 Globulin 2.5 Albumin/Globulin Ratio 1.5 Lipase 52 H - Rads (name of study) CT Head Radiology: EMP read contemporaneously (NAD) PD MEDICAL DECISION MAKING - ED course ED course: arrived and the history is that she was dropping the right wrist earlier today. In my mind this corresponds with the infected wound on the proximal posterior right forearm. It would be over the musculature that would extend the right wrist. She has no other weakness in the right arm or on the right side so this is not consistent with TIA or stroke. The wound was swabbed for culture irrigated and dressed and she is placed on Augmentin. Departure - Departure Disposition: 01 Home, Self Care Clinical Impression: Right arm weakness, Right forearm cellulitis Condition: Good Record reviewed to determine appropriate education?: Yes Instructions: Cellulitis Dc Prescriptions: Amox/Clav 875/125 [Augmentin] 1 each PO Q12H #14 tablet Comments: We are performing a wound culture, the results should be done in 48-72 hours. If antibiotic change is necessary we will call you. Return if worse in the meantime, especially if you develop increased pain, fevers, cannot keep down the medication. Otherwise follow-up with your physician in approximately 2-3 days.
[2018-12-31 16:34] LABS: BASOPHILS # (AUTO) 0.1 10^3/uL (0.0-0.1); BASOPHILS % (AUTO) 1.4 %; EOSINOPHILS # (AUTO) 0.4 10^3/uL (0.0-0.7); HGB - HEMOGLOBIN 10.7 g/dL (12.0-16.0); LYMPHOCYTES # (AUTO) 1.3 10^3/uL (1.5-3.5); LYMPHOCYTES % (AUTO) 18.5 %; MEAN CORPUSCULAR HEMOGLOBIN 32.1 pg (27.0-31.0); MEAN CORPUSCULAR HGB CONC 34.4 g/dL (32.0-36.0); MEAN CORPUSCULAR VOLUME 93.3 fL (81.0-99.0); MONOCYTES # (AUTO) 0.7 10^3/uL (0.0-1.0); MONOCYTES % (AUTO) 10.5 %; NEUTROPHILS # (AUTO) 4.5 10^3/uL (1.5-6.6); NEUTROPHILS % (AUTO) 64.6 %; PLT - PLATELET COUNT 273 10^3/uL (130-450); RED BLOOD COUNT 3.32 10^6/uL (4.20-5.40)
[2018-12-31 16:45] LABS: ALBUMIN 3.7 g/dL (3.2-5.5); ALBUMIN/GLOBULIN RATIO 1.5 (1.0-2.2); BILIRUBIN,TOTAL 0.5 mg/dL (0.2-1.0); CALCIUM 8.9 mg/dL (8.5-10.3); CREATININE 1.1 mg/dL (0.4-1.0); TOTAL PROTEIN 6.2 g/dL (6.7-8.2)
--- NOTE | 2018-12-31 18:01 | CT Report ---
Reason: R arm weak, resolved Procedure Date: 12/31/2018 Accession Number: [id number] / [id number] Procedure: CT - HEAD WO CPT Code: FULL RESULT: EXAM: CT HEAD EXAM DATE: 12/31/2018 04:45 PM. CLINICAL HISTORY: Right arm weakness. COMPARISON: 10/16/2018. TECHNIQUE: Multiaxial CT images were obtained from the foramen magnum to the vertex. Reformats: Sagittal and coronal. IV contrast: None. In accordance with CT protocol optimization, one or more of the following dose reduction techniques were utilized for this exam: automated exposure control, adjustment of mA and/or KV based on patient size, or use of iterative reconstructive technique. FINDINGS: Parenchyma: There is moderate atrophy of the brain. An old infarct is seen in the left posterior temporal lobe. Basal ganglia calcifications are present. No intracranial hemorrhage. No midline shift. Extraaxial Spaces: There is ex-vacuo dilatation of the lateral ventricles. No subdural or epidural collections identified. Ventricles: Normal in size and position. Sinuses and Orbits: Imaged paranasal sinuses, orbits, and mastoids show no significant abnormality. Bones: The patient has had a prior right temporal craniotomy. Other: Arterial calcifications indicate atherosclerosis. IMPRESSION: No acute findings. RADIA
[2018-12-31 18:04] VITALS: BP 144/81
[2018-12-31] MEDS ORDERED: AMOX/CLAV 875 MG/125 MG TABLET PO STA (18:20)
== END 2018-12-31 18:53 | disposition home or self-care (01) ==
LOC: EDBD → EDUNIT# → ED 16:10
DX: L03.113 Cellulitis of right upper limb (principal); S51.811S Laceration without foreign body of right forearm, sequela; F03.90 Unspecified dementia, unspecified severity, without behavioral disturbance, psychotic disturbance, mood disturbance, and anxiety; I10 Essential (primary) hypertension; E78.00 Pure hypercholesterolemia, unspecified; E03.9 Hypothyroidism, unspecified; H54.7 Unspecified visual loss; H91.90 Unspecified hearing loss, unspecified ear; M81.0 Age-related osteoporosis without current pathological fracture; Z79.02 Long term (current) use of antithrombotics/antiplatelets
CPT/HCPCS: 36415; 70450; 80053; 83690; 85025; 87070; 87077; 87181; 87205; 99283; A9270

== ENCOUNTER 2019-05-20 17:40 | Outpatient (CLI) | payer MEDICARE, OTHER | END 2019-05-20 17:41 | disposition critical access hospital (66) | LOC: EMS 17:40 | PROVIDERS: ATTEND Surgery | DX: R53.83 Other fatigue (principal); R41.0 Disorientation, unspecified | CPT/HCPCS: A0425; A0429 ==

== ENCOUNTER 2019-05-20 17:59 | Inpatient (IN) | payer MEDICARE, OTHER ==
[2019-05-20 18:38] LABS: BASOPHILS % (AUTO) 0.7 %; EOSINOPHILS % (AUTO) 13.2 %; HGB - HEMOGLOBIN 9.7 g/dL (12.0-16.0); LYMPHOCYTES % (AUTO) 2.7 %; MEAN CORPUSCULAR HEMOGLOBIN 31.5 pg (27.0-31.0); MEAN CORPUSCULAR HGB CONC 33.8 g/dL (32.0-36.0); MEAN CORPUSCULAR VOLUME 93.2 fL (81.0-99.0); MEAN PLATELET VOLUME 9.1 fL (7.9-10.8); MONOCYTES % (AUTO) 8.4 %; NEUTROPHILS % (AUTO) 74.5 %; PLT - PLATELET COUNT 237 10^3/uL (130-450); RED BLOOD COUNT 3.08 10^6/uL (4.20-5.40); RED CELL DISTRIBUTION WIDTH 13.2 % (12.0-15.0); WHITE BLOOD COUNT 12.2 x10^3/uL (4.8-10.8)
[2019-05-20 18:40] LABS: ABNORMAL LYMPHS % (MANUAL) 0 %
[2019-05-20 18:49] LABS: ALBUMIN 3.3 g/dL (3.2-5.5); ALBUMIN/GLOBULIN RATIO 1.4 (1.0-2.2); BILIRUBIN,TOTAL 0.3 mg/dL (0.2-1.0); CALCIUM 9.1 mg/dL (8.5-10.3); CREATININE 1.1 mg/dL (0.4-1.0); TOTAL PROTEIN 5.6 g/dL (6.7-8.2)
[2019-05-20 18:54] LABS: BAND NEUTROPHILS % (MANUAL) 1 %; LYMPHOCYTES # (MANUAL) 0.6 10^3/uL (1.5-3.5); LYMPHOCYTES % (MANUAL) 5 %; MONOCYTES # (MANUAL) 0.9 10^3/uL (0.0-1.0)
[2019-05-20 18:55] LABS: DIFFERENTIAL COMMENT MANUAL DIFFERENTIAL; PLATELET ESTIMATE, MANUAL NORMAL (130-450,000) (NORMAL); PLATELET MORPHOLOGY NORMAL APPEARANCE (NORMAL); RBC MORPHOLOGY (MULTIPLE) NORMAL APPEARANCE (NORMAL)
--- NOTE | 2019-05-20 19:16 | ED Physician Documentation ---
History of Present Illness - Stated complaint Stated Complaint: AMS - Chief complaint Chief Complaint: Neuro - History obtained from History obtained from: Patient, Family, EMS - History of Present Illness Timing: Today Pain level max: 0 Pain level now: 0 Improved by: nothing Worsened by: nothing - Additonal information Additional information: 74-year-old female with a history of dementia, hypertension and hypothyroidism presents to the emergency department with decreasing alertness today. Her states that she is sleeping more than usual. He states it was harder to wake her up today. She felt warm to the touch. She has been dealing with an ongoing all over body rash for the past month. Has been on a cream for this, they do not know what the cream is. Is not improving. Nothing makes this better or worse. He states that the patient is normally ambulatory and verbal at home. Here she is lying curled up on her side. also states that she fell today as she also fell 2 weeks ago and struck her head. Review of Systems Unable to obtain: AMS, Dementia PD PAST MEDICAL HISTORY - Past Medical History Cardiovascular: Hypertension, High cholesterol Respiratory: None Neuro: Dementia Endocrine/Autoimmune: HyPOthyroidism GI: None BUSINESS MANAGEMENT CONSULTANT: None : None HEENT: Chronic vision loss, Chronic hearing loss Psych: None Musculoskeletal: None, Osteoporosis Derm: None - Past Surgical History Past Surgical History: Yes HEENT: Other - Present Medications Home Medications: Ambulatory Orders Medication Instructions Recorded Confirmed Levothyroxine [Synthroid] 75 mcg ORAL DAILY 03/04/16 10/17/18 Clopidogrel [Plavix] 75 mg ORAL DAILY 10/16/18 10/16/18 Atorvastatin Calcium 40 mg PO QPM 10/17/18 10/17/18 Multivitamin [Multiple Vitamins] 1 each PO DAILY 10/17/18 10/17/18 Acetaminophen [Tylenol] 650 mg PO Q6H PRN #30 tablet 10/20/18 Alendronate [Fosamax] 70 mg PO Q7D #2 tablet 10/20/18 Cholecalciferol (Vitamin D3) 1,000 unit PO DAILY #10 capsule 10/20/18 [Vitamin D3] Lisinopril [Zestril] 40 mg PO DAILY #5 tablet 10/20/18 Amox/Clav 875/125 [Augmentin] 1 each PO Q12H #14 tablet 12/31/18 - Allergies Allergies/Adverse Reactions: Allergies Allergy/AdvReac Type Severity Reaction Status Date / Time atorvastatin [From Lipitor] Allergy Unknown Verified 01/03/19 07:20 Penicillins Allergy Unknown Verified 01/03/19 07:20 [email or web address] Allergy Unknown Uncoded 01/03/19 07:20 - Social History Does the pt smoke?: No Smoking Status: Unknown if ever smoked Does the pt drink ETOH?: No Does the pt have substance abuse?: No - Immunizations Immunizations are current?: Yes - POLST Patient has POLST: No PD ED PE NORMAL - Vitals Vital signs reviewed: Yes - General General: Well developed/nourished, Other (Lying curled up on her right side. Nonverbal. Arms crossed against chest) - HEENT HEENT: PERRL, Moist mucous membranes - Neck Neck: Supple, no meningeal sign - Cardiac Cardiac: RRR - Respiratory Respiratory: No respiratory distress, Clear bilaterally - Abdomen Abdomen: Soft, Non tender, Non distended - Derm Derm: Warm and dry, Other (Diffuse scabs with excoriation. No signs of secondary Infection) - Extremities Extremities: No edema - Neuro Eye Opening: Spontaneous Motor: Localizes to Pain Verbal: None GCS Score: 10 Results - Vitals Vitals: Vital Signs - 24 hr 05/20/19 05/20/19 05/20/19 18:04 18:30 19:35 Temperature 37.7 C H 38.1 C H Heart Rate 82 18 L 73 Respiratory 14 78 H 16 Rate Blood Pressure 140/84 H 145/73 H 137/78 H O2 Saturation 99 100 100 05/20/19 05/20/19 21:07 22:46 Temperature 37.1 C Heart Rate 97 97 Respiratory 15 18 Rate Blood Pressure 162/77 H 139/59 H O2 Saturation 100 99 Oxygen O2 Source Room air - Labs Labs: Laboratory Tests 05/20/19 05/20/19 05/20/19 18:30 18:30 18:30 WBC 12.2 H RBC 3.08 L Hgb 9.7 L Hct 28.7 L MCV 93.2 MCH 31.5 H MCHC 33.8 RDW 13.2 Plt Count 237 MPV 9.1 Neut # (Auto) Not Reportable Lymph # (Auto) Not Reportable [place] # (Auto) Not Reportable Eos # (Auto) Not Reportable Baso # (Auto) Not Reportable Absolute Nucleated RBC Not Reportable Total Counted 100 Band Neuts % (Manual) 1 Abnorm Lymph % (Manual) 0 Nucleated RBC % Not Reportable Neutrophils # (Manual) 8.8 H Lymphocytes # (Manual) 0.6 L Monocytes # (Manual) 0.9 Eosinophils # (Manual) 2.0 H Basophils # (Manual) 0.0 Differential Comment MANUAL DIFFERENTIAL Manual Slide Review Indicated WBC Morphology NORMAL APPEARANCE Platelet Estimate NORMAL (130-450,000) Platelet Morphology NORMAL APPEARANCE RBC Morph Micro Appear NORMAL APPEARANCE Sodium 131 L Potassium 4.4 Chloride 98 L Carbon Dioxide 25 Anion Gap 8.0 BUN 27 H Creatinine 1.1 H Estimated GFR (MDRD) 49 L Glucose 123 H Lactic Acid 1.2 Calcium 9.1 Total Bilirubin 0.3 AST 24 ALT 16 Alkaline Phosphatase 32 L Total Protein 5.6 L Albumin 3.3 Globulin 2.3 Albumin/Globulin Ratio 1.4 Lipase 47 Urine Color Urine Clarity Urine pH Ur Specific [place] Urine Protein Urine Glucose (UA) Urine Ketones Urine Occult Blood Urine Nitrite Urine Bilirubin Urine Urobilinogen Ur Leukocyte Esterase Ur Microscopic Review Urine Culture Comments 05/20/19 21:00 WBC RBC Hgb Hct MCV MCH MCHC RDW Plt Count MPV Neut # (Auto) Lymph # (Auto) [place] # (Auto) Eos # (Auto) Baso # (Auto) Absolute Nucleated RBC Total Counted Band Neuts % (Manual) Abnorm Lymph % (Manual) Nucleated RBC % Neutrophils # (Manual) Lymphocytes # (Manual) Monocytes # (Manual) Eosinophils # (Manual) Basophils # (Manual) Differential Comment Manual Slide Review WBC Morphology Platelet Estimate Platelet Morphology RBC Morph Micro Appear Sodium Potassium Chloride Carbon Dioxide Anion Gap BUN Creatinine Estimated GFR (MDRD) Glucose Lactic Acid Calcium Total Bilirubin AST ALT Alkaline Phosphatase Total Protein Albumin Globulin Albumin/Globulin Ratio Lipase Urine Color YELLOW Urine Clarity CLEAR Urine pH 6.0 Ur Specific [place] <=1.005 Urine Protein NEGATIVE Urine Glucose (UA) NEGATIVE Urine Ketones NEGATIVE Urine Occult Blood NEGATIVE Urine Nitrite NEGATIVE Urine Bilirubin NEGATIVE Urine Urobilinogen 0.2 (NORMAL) Ur Leukocyte Esterase NEGATIVE Ur Microscopic Review NOT INDICATED Urine Culture Comments NOT INDICATED - Rads (name of study) CT head Radiology: Prelim report reviewed, EMP read contemporaneously, See rad report (Stable atrophy and chronic ischemic changes. No evidence of acute hemorrhage or mass-effect. ) c-spine CT Radiology: Prelim report reviewed, EMP read contemporaneously, See rad report (No cervical spine fracture or malalignment. ) cxr Radiology: Prelim report reviewed, EMP read contemporaneously, See rad report (Mild nonspecific prominence of the interstitial markings bilaterally. This can be seen with atypical infections or fluid overload. 2. No other acute cardiopulmonary findings radiographically. 3. Costophrenic angles not completely included. ) PD MEDICAL DECISION MAKING - ED course Complexity details: reviewed results, re-evaluated patient, considered differential, d/w family, d/w fashion consultant sales ED course: 74-year-old female presents to the emergency department with altered mental status. No acute findings on CT scans. Possible atypical pneumonia on chest x- ray. Has a leukocytosis. We will treat with Rocephin and azithromycin. No evidence of secondary infection of the rash at this time. also states that she has been digging at her rectum as she has constipation issues and will manually disimpact herself. Rectal exam did not reveal any acute abnormalities other than a large that is not thrombosed. Chaperoned by Allyson BAKER. Discussed the case with Dr. Dillard, hospitalist to accept This document was made in part using voice recognition software. While efforts are made to proofread this document, sound alike and grammatical errors may occur. Departure - Departure Disposition: 66 [facility] DC/Xfer Clinical Impression: Atypical pneumonia Fever Qualifiers: Fever type: unspecified Qualified Code(s): R50.9 - Fever, unspecified Altered mental status Qualifiers: Altered mental status type: unspecified Qualified Code(s): R41.82 - Altered mental status, unspecified Condition: Stable
--- NOTE | 2019-05-20 19:21 | XRAY Report ---
Reason: fever Procedure Date: 05/20/2019 Accession Number: [id number] / [id number] Procedure: XR - Chest 1 View X-Ray CPT Code: 87596 FULL RESULT: EXAM: CHEST RADIOGRAPHY EXAM DATE: 05/20/2019 06:46 PM. CLINICAL HISTORY: Fever. COMPARISON: CHEST 1 VIEW 05/02/2016 8:21 PM. TECHNIQUE: 1 view. FINDINGS: Lungs/Pleura: No infiltrates. Costophrenic angle is not completely included. No large pleural effusions or pneumothorax. Diffuse prominence of interstitial markings bilaterally. Mediastinum: Heart size within normal limits. Mild pulmonary vascular congestion. Osseous structures: No significant focal osseous lesions. IMPRESSION: 1. Mild nonspecific prominence of the interstitial markings bilaterally. This can be seen with atypical infections or fluid overload. 2. No other acute cardiopulmonary findings radiographically. 3. Costophrenic angles not completely included. RADIA
[2019-05-20] MEDS ORDERED: SODIUM CHLORIDE 0.9% 1,000 ML IV ONE ×3 (19:35)
[2019-05-20] MEDS ORDERED: HALOPERIDOL 5 MG/ML VIAL IVP STA (20:40)
[2019-05-20 21:43] LABS: BILIRUBIN,URINE NEGATIVE (NEGATIVE); GLUCOSE, URINE (UA) NEGATIVE (NEGATIVE); KETONES,URINE (UA) NEGATIVE (NEGATIVE); LEUKOCYTE ESTERASE, URINE NEGATIVE (NEGATIVE); NITRITE,URINE NEGATIVE (NEGATIVE); OCCULT BLOOD,URINE NEGATIVE (NEGATIVE); PROTEIN,URINE NEGATIVE (NEGATIVE); UROBILINOGEN,URINE 0.2 (NORMAL) E.U./dL (NORMAL)
[2019-05-20 21:45] LABS: CLARITY,URINE CLEAR (CLEAR)
--- NOTE | 2019-05-20 22:28 | CT Report ---
Reason: fall, ALOC Procedure Date: 05/20/2019 Accession Number: [id number] / [id number] Procedure: CT - HEAD WO CPT Code: FULL RESULT: EXAM: CT HEAD EXAM DATE: 05/20/2019 10:19 PM. CLINICAL HISTORY: Fall, ALOC. COMPARISON: HEAD W/O 12/31/2018 4:42 PM. TECHNIQUE: Multiaxial CT images were obtained from the foramen magnum to the vertex. Reformats: Sagittal and coronal. IV contrast: None. In accordance with CT protocol optimization, one or more of the following dose reduction techniques were utilized for this exam: automated exposure control, adjustment of mA and/or KV based on patient size, or use of iterative reconstructive technique. FINDINGS: Parenchyma: Stable extensive atrophy and chronic ischemic changes in the left posterior temporal lobe. No evidence of acute hemorrhage or mass-effect. Extraaxial Spaces: Symmetric enlargement, compatible with atrophy. No subdural or epidural collections identified. Ventricles: Ex-vacuo dilatation of the posterior horn of the left lateral ventricle. Sinuses and Orbits: Chronic mucosal thickening and postoperative changes. The visualized orbital contents are unremarkable. Bones: Postoperative changes of right craniotomy. Other: None. IMPRESSION: Stable atrophy and chronic ischemic changes. No evidence of acute hemorrhage or mass-effect. RADIA
[2019-05-20] MEDS ORDERED: AZITHROMYCIN INJ 500 MG in SODIUM CHLORIDE 0.9% 250 ML IV STA (22:29)
[2019-05-20] MEDS ORDERED: cefTRIAXone 1 GM VIAL IVP STA (22:29)
[2019-05-20] MEDS ORDERED: diphenhydrAMINE INJ 50 MG/ML VIAL IVP STA (22:32)
--- NOTE | 2019-05-20 22:32 | CT Report ---
Reason: fall, ALOC Procedure Date: 05/20/2019 Accession Number: [id number] / [id number] Procedure: CT - CERVICAL SPINE WO CPT Code: FULL RESULT: EXAM: CT CERVICAL SPINE WITHOUT CONTRAST DATE: 05/20/2019 10:20 PM. HISTORY: Fall, altered level of consciousness. COMPARISONS: CERVICAL SPINE W/O 10/16/2018. TECHNIQUE: Thin-section axial images were acquired of the cervical spine without contrast. Post-processing: Coronal and sagittal reformats. Other: None. In accordance with CT protocol optimization, one or more of the following dose reduction techniques were utilized for this exam: automated exposure control, adjustment of mA and/or KV based on patient size, or use of iterative reconstructive technique. FINDINGS: Alignment: No scoliosis or spondylolisthesis. Bones: No fracture or bone lesion. Interspace Levels/Facets: Mild bilateral multilevel facet joint arthropathy. There is mild loss of disk height at C4-C5 with posterior bulging disk/osteophyte complex resulting in mild right neural foraminal stenosis. Musculature: Normal. No fatty atrophy. Other: Bilateral carotid artery calcifications noted. The lung apices are clear. IMPRESSION: 1. No cervical spine fracture or malalignment. RADIA
[2019-05-20] MEDS ORDERED: ONDANSETRON ODT 4 MG TABLET TL PRN (22:45)
[2019-05-20] MEDS ORDERED: cefTRIAXone 1 GM in SODIUM CHLORIDE 0.9% MINIBAG 100 ML IV STA (22:48)
--- NOTE | 2019-05-20 23:21 | HISTORY & PHYSICAL EXAMINATION ---
Chief Complaint - Chief Complaint Chief Complaint: AMS, fever, rash History of Present Illness - Admitted From Admitted From:: [facility] - History Obtained From Records Reviewed: yes History obtained from: ED physician Exam Limitations: dementia/ AMS - History of Present Illness HPI Comment/Other: Patient seen on 05/20/19 around 23:00 pm The history below was obtained from the HPI of the ED H&P because the patient has baseline dementia, is currently altered and unable to answer any question asked. There is no family member at bedside during my exam. "74-year-old female with a history of dementia, hypertension and hypothyroidism presents to the emergency department with decreasing alertness today. Her states that she is sleeping more than usual. He states it was harder to wake her up today. She felt warm to the touch. She has been dealing with an ongoing all over body rash for the past month. Has been on a cream for this, they do not know what the cream is. Is not improving. Nothing makes this be tter or worse. He states that the patient is normally ambulatory and verbal at home. Here she is lying curled up on her side. also states that she fell today as she also fell 2 weeks ago and struck her head." Patient has extensive rash/ small wounds all over her body, which are pruritic. She does not respond to her name. She constantly asks to get out of bed. She was found to have a WBC of 12.2. CXR suggests atypical pneumonia. History - Past Medical History Cardiovascular: reports: Hypertension, High cholesterol Respiratory: reports: None Neuro: reports: Dementia Endocrine/Autoimmune: reports: HyPOthyroidism GI: reports: None RAND SEWER: reports: None : reports: None HEENT: reports: Chronic vision loss, Chronic hearing loss Psych: reports: None Musculoskeletal: reports: None, Osteoporosis Derm: reports: None MRSA Hx?: No - Past Surgical History HEENT: reports: Other - Family & Social History Family History Comment/Other: Cannot obtain family history due to dementia and altered mental status Living arrangement: At home Living Situation: With spouse/s.o. Social History Notes: From previous documentation, patient does not use tobacco, alcohol or illicit drugs. - POLST Patient has POLST: No POLST Status: Full Code Meds/Allgy - Home Medications Home Medications: Ambulatory Orders Medication Instructions Recorded Confirmed Levothyroxine [Synthroid] 75 mcg ORAL DAILY 03/04/16 10/17/18 Clopidogrel [Plavix] 75 mg ORAL DAILY 10/16/18 10/16/18 Atorvastatin Calcium 40 mg PO QPM 10/17/18 10/17/18 Multivitamin [Multiple Vitamins] 1 each PO DAILY 10/17/18 10/17/18 Acetaminophen [Tylenol] 650 mg PO Q6H PRN #30 tablet 10/20/18 Alendronate [Fosamax] 70 mg PO Q7D #2 tablet 10/20/18 Cholecalciferol (Vitamin D3) 1,000 unit PO DAILY #10 capsule 10/20/18 [Vitamin D3] Lisinopril [Zestril] 40 mg PO DAILY #5 tablet 10/20/18 Amox/Clav 875/125 [Augmentin] 1 each PO Q12H #14 tablet 12/31/18 - Allergies Allergies/Adverse Reactions: Allergies Allergy/AdvReac Type Severity Reaction Status Date / Time atorvastatin [From Lipitor] Allergy Unknown Verified 01/03/19 07:20 Penicillins Allergy Unknown Verified 01/03/19 07:20 [email or web address]/grass Allergy Unknown Uncoded 01/03/19 07:20 Review of Systems - Constitutional Constitutional: reports: Fever, Other (confused) - Eyes Eyes: denies: Vision loss - Cardiovascular Cariovascular: denies: Chest pain, Edema - Respiratory Respiratory: denies: Cough, Sputum production, SOB with exertion - Gastrointestinal Gastrointestinal: denies: Abdominal pain, Abdominal distention, Diarrhea, Nausea, Vomiting - Genitourinary Genitourinary: denies: Dysuria, Frequency, Urgency, Hematuria - Musculoskeletal Musculoskeletal: denies: Muscle pain, Back pain - Integumentary Integumentary: reports: Rash, Pruritis - Neurological Neurological: reports: Other (Dementia) - Psychiatric Psychiatric: reports: Other (Encephalopathic) - Endocrine Endocrine: denies: Polyuria, Polydypsia - Hematologic/Lymphatic Hematologic/Lymphatic: reports: Anemia Prior Level of Functionality: At baseline patient has dementia. Lives at home with Exam - Vital Signs Vital Signs: Vital Signs x48h Temp Pulse Resp BP Pulse Ox 05/20/19 22:46 37.1 C 97 18 139/59 H 99 05/20/19 21:07 97 15 162/77 H 100 05/20/19 19:35 73 16 137/78 H 100 05/20/19 18:30 38.1 C H 18 L 78 H 145/73 H 100 05/20/19 18:04 37.7 C H 82 14 140/84 H 99 - Physical Exam General Appearance: positive: No acute distress, Other (Now oriented to place, time or reason). negative: Alert Eyes Bilateral: positive: Normal inspection, PERRL, EOMI ENT: positive: ENT inspection nml, No signs of dehydration Neck: positive: Nml inspection, No JVD, Trachea midline Respiratory: positive: Chest non-tender, No respiratory distress, Breath sounds nml. negative: Wheezes, Rales, Rhonchi Cardiovascular: positive: Regular rate & rhythm Abdomen: positive: Non-tender, No organomegaly, Nml bowel sounds, No distention Back: positive: Nml inspection Skin: positive: Skin rash (Extensive rash/open wound all over body. Pruritic) Extremities: positive: Non-tender, Full ROM, No pedal edema Neurologic/Psychiatric: positive: Disoriented to person, Disoriented to place, Disoriented to time Conclusion/Plan - Problem List (1) Atypical pneumonia Conclusion/Plan: Patient on rocephin and azithromycin. Blood cultures pending (2) Rash Conclusion/Plan: Etiology undetermined Benadryl for itching prn. Patient may need dermatology follow up out patient (3) Hyperlipidemia Conclusion/Plan: On atorvastatin (4) Hypothyroid Conclusion/Plan: On synthroid Qualifiers: Hypothyroidism type: acquired Qualified Code(s): E03.9 - Hypothyroidism, unspecified (5) History of stroke Conclusion/Plan: On plavix (6) Hypertension Conclusion/Plan: On lisinopril (7) Dementia Conclusion/Plan: Not on any medication Qualifiers: Dementia type: unspecified type Dementia behavioral disturbance: with behavioral disturbance Qualified Code(s): F03.91 - Unspecified dementia with behavioral disturbance - Lab Results Fish Bones: 05/21/19 06:15 05/21/19 06:15 Core Measures - Anticipated LOS I expect patient to be DC'd or transferred within 96 hours.: Yes - DVT/VTE - Prophylaxis VTE/DVT Device ordered at admit?: Yes
[2019-05-20] MEDS: SODIUM CHLORIDE 0.9% 1,000 ML IV SCH (23:35)
[2019-05-20] MEDS: ACETAMINOPHEN 325 MG TABLET PO PRN (23:37)
[2019-05-20] MEDS ORDERED: diphenhydrAMINE 25 MG CAPSULE PO PRN (23:40)
[2019-05-21] MEDS: SODIUM CHLORIDE FLUSH 0.9% 10 ML SYRINGE IVP SCH ×3 (00:43→16:15)
[2019-05-21] MEDS: PANTOPRAZOLE 40 MG TABLET PO SCH (06:03)
[2019-05-21] MEDS: ACETAMINOPHEN 325 MG TABLET PO PRN (06:17)
[2019-05-21 06:52] LABS: BASOPHILS % (AUTO) 0.7 %; EOSINOPHILS % (AUTO) 11.8 %; HGB - HEMOGLOBIN 9.2 g/dL (12.0-16.0); LYMPHOCYTES % (AUTO) 3.3 %; MEAN CORPUSCULAR HEMOGLOBIN 31.3 pg (27.0-31.0); MEAN CORPUSCULAR HGB CONC 32.9 g/dL (32.0-36.0); MEAN CORPUSCULAR VOLUME 95.2 fL (81.0-99.0); MEAN PLATELET VOLUME 9.7 fL (7.9-10.8); MONOCYTES % (AUTO) 7.9 %; NEUTROPHILS % (AUTO) 75.7 %; PLT - PLATELET COUNT 228 10^3/uL (130-450); RED BLOOD COUNT 2.94 10^6/uL (4.20-5.40); RED CELL DISTRIBUTION WIDTH 13.2 % (12.0-15.0); WHITE BLOOD COUNT 11.7 x10^3/uL (4.8-10.8)
[2019-05-21 06:57] LABS: CALCIUM 7.6 mg/dL (8.5-10.3)
[2019-05-21 06:58] LABS: ABNORMAL LYMPHS % (MANUAL) 0 %; BAND NEUTROPHILS % (MANUAL) 0 %
[2019-05-21 07:20] LABS: EOSINOPHILS # (MANUAL) 0.8 10^3/uL (0-0.7); LYMPHOCYTES # (MANUAL) 0.5 10^3/uL (1.5-3.5); LYMPHOCYTES % (MANUAL) 4 %; MONOCYTES # (MANUAL) 0.6 10^3/uL (0.0-1.0)
[2019-05-21 07:21] LABS: DIFFERENTIAL COMMENT MANUAL DIFFERENTIAL; PLATELET ESTIMATE, MANUAL NORMAL (130-450,000) (NORMAL); PLATELET MORPHOLOGY NORMAL APPEARANCE (NORMAL); RBC MORPHOLOGY (MULTIPLE) NORMAL APPEARANCE (NORMAL)
[2019-05-21] MEDS: SODIUM CHLORIDE 0.9% 1,000 ML IV SCH ×3 (08:44→21:02)
[2019-05-21] MEDS ORDERED: SODIUM CHLORIDE 0.9% 1,000 ML IV SCH (08:49)
[2019-05-21] MEDS ORDERED: CLOPIDOGREL 75 MG TABLET PO SCH (09:00)
[2019-05-21] MEDS: diphenhydrAMINE INJ 50 MG/ML VIAL IVP PRN ×3 (10:24→16:15)
[2019-05-21] MEDS: POLYETHYLENE GLYCOL 3350 17 GM PACKET PO SCH (10:25)
[2019-05-21] MEDS: ENOXAPARIN 40 MG/0.4 ML SYRINGE SUBQ SCH (11:32)
[2019-05-21] MEDS: LISINOPRIL 20 MG TABLET PO SCH (12:25)
[2019-05-21] MEDS: CLOPIDOGREL 75 MG TABLET PO SCH ×2 (13:31→13:46)
[2019-05-21] MEDS: LEVOTHYROXINE 88 MCG TABLET PO SCH ×2 (13:31→13:46)
--- NOTE | 2019-05-21 16:31 | PROVIDER PROGRESS NOTE ---
Subjective - Prog Note Date Prog Note Date: 05/21/19 - Subjective Pt reports feeling: Improved Subjective: pt has advanced dementia, could not answer questions. pt has no fever, chill, shortness of breath. Current Medications - Current Medications Current Medications: Active Medications Acetaminophen (Tylenol) 650 mg PO Q4HR PRN PRN Reason: Pain 1 to 4 Last Admin: 05/21/19 06:17 Dose: 650 mg Azithromycin (Zithromax) 250 mg PO DAILY [facility] Stop: 05/24/19 09:01 Clopidogrel Bisulfate (Plavix) 75 mg PO DAILY [facility] Last Admin: 05/21/19 13:46 Dose: 75 mg Diphenhydramine HCl (Benadryl Inj) 25 mg IVP Q6H PRN PRN Reason: ITCHING Last Admin: 05/21/19 16:15 Dose: 25 mg Enoxaparin Sodium (Lovenox) 40 mg SUBQ DAILY [facility] Last Admin: 05/21/19 11:32 Dose: Not Given Ceftriaxone Sodium 2 gm/ (Sodium Chloride) 100 mls @ 200 mls/hr IV DAILY [facility] Sodium Chloride (Normal Saline 0.9%) 1,000 mls @ 83.3 mls/hr IV .Q12H1M [facility] Stop: 05/22/19 08:49 Last Admin: 05/21/19 10:24 Dose: 83.3 mls/hr Levothyroxine Sodium (Synthroid) 88 mcg PO QDAC [facility] Last Admin: 05/21/19 13:46 Dose: 88 mcg Lisinopril (Zestril) 40 mg PO DAILY [facility] Last Admin: 05/21/19 12:25 Dose: Not Given Ondansetron HCl (Zofran Odt) 4 mg TL Q6HR PRN PRN Reason: Nausea / Vomiting Pantoprazole Sodium (Protonix) 40 mg PO QDAC [facility] Last Admin: 05/21/19 06:03 Dose: Not Given Polyethylene Glycol (Miralax) 17 gm PO DAILY [facility] Last Admin: 05/21/19 10:25 Dose: Not Given Sodium Chloride (Normal Saline Flush 0.9%) 10 ml IVP PRN PRN PRN Reason: NEEDED PER PROVIDER ORDERS Sodium Chloride (Normal Saline Flush 0.9%) 10 ml IVP 0100,0900,1700 [facility] Last Admin: 05/21/19 16:15 Dose: 10 ml Levothyroxine [Synthroid] 75 mcg PO QDAC 03/04/16 Multivitamin [Multiple Vitamins] 1 each PO DAILY 10/17/18 Docusate Sodium 100 mg PO Q2D 05/21/19 Docusate Sodium [Dss] 250 mg PO Q2D 05/21/19 Famotidine 10 mg PO DAILY 05/21/19 Lisinopril 20 mg PO DAILY 05/21/19 Objective - Vital Signs/Intake & Output Reviewed Vital Signs: Yes Vital Signs: Vital Signs x48h Temp Pulse Resp BP 05/21/19 10:19 37.1 C 92 16 147/73 H Intake & Output: Intake & Output 05/18/19 05/19/19 05/20/19 05/21/19 23:59 23:59 23:59 23:59 Intake Total 2497.5 1264 Output Total 1000 550 Balance 1497.5 714 - Objective General Appearance: positive: No acute distress, Alert. negative: Lethargic Eyes Bilateral: positive: Normal inspection, PERRL, No lid inflammation, Conjunctivae nml ENT: positive: ENT inspection nml, Pharynx nml, No signs of dehydration. negative: Purulent nasal drainage, Pharyngeal erythema, Oral lesions Neck: positive: Nml inspection, Thyroid nml, No JVD, Trachea midline. negative: Thyromegaly, Lymphadenopathy (R), Lymphadenopathy (L), Stiff neck, Swelling/bruising, Tracheal deviation Respiratory: positive: Chest non-tender, No respiratory distress. negative: Wheezes, Rales, Rhonchi Cardiovascular: positive: Regular rate & rhythm, No murmur, No gallop. negative: Irregularly irregular, Extrasystoles, Tachycardia, Bradycardia, JVD present, Systolic murmur, Diastolic murmur Peripheral Pulses: 2+ Radial (R), 2+ Radial (L), 2+ Dorsalis pedis (R), 2+ Dorsalis pedis (L) Abdomen: positive: Non-tender, No organomegaly, Nml bowel sounds, No distention. negative: Tenderness, Guarding, Rebound Back: positive: Nml inspection. negative: CVA tenderness (R), CVA tenderness (L) Skin: positive: Warm, Dry, Skin rash. negative: Cyanosis, Diaphoresis, Pallor Extremities: positive: Non-tender. negative: Calf tenderness, Margi's sign/cords Neurologic/Psychiatric: negative: Weakness, Facial droop, Slurred/abnml speech - Lab Results Fish Bones: 05/21/19 06:15 05/21/19 06:15 Other Labs: Lab Results x24hrs 05/21/19 05/21/19 05/20/19 Range/Units 06:15 06:15 21:00 WBC 11.7 H (4.8-10.8) x10^3/uL RBC 2.94 L (4.20-5.40) 10^6/uL Hgb 9.2 L (12.0-16.0) g/dL Hct 28.0 L (37.0-47.0) % MCV 95.2 (81.0-99.0) fL MCH 31.3 H (27.0-31.0) pg MCHC 32.9 (32.0-36.0) g/dL RDW 13.2 (12.0-15.0) % Plt Count 228 (130-450) 10^3/uL MPV 9.7 (7.9-10.8) fL Neut # (Auto) Not Reportable Lymph # (Auto) Not Reportable [place] # (Auto) Not Reportable Eos # (Auto) Not Reportable Baso # (Auto) Not Reportable Absolute Nucleated RBC Not Reportable Total Counted 100 Band Neuts % (Manual) 0 (0 - 10) % Abnorm Lymph % (Manual) 0 % Nucleated RBC % Not Reportable Neutrophils # (Manual) 9.8 H (1.5-6.6) 10^3/uL Lymphocytes # (Manual) 0.5 L (1.5-3.5) 10^3/uL Monocytes # (Manual) 0.6 (0.0-1.0) 10^3/uL Eosinophils # (Manual) 0.8 H (0-0.7) 10^3/uL Basophils # (Manual) 0.0 (0-0.1) 10^3/uL Differential Comment MANUAL DIFFERENTIAL Manual Slide Review WBC Morphology NORMAL APPEARANCE (NORMAL) Platelet Estimate NORMAL (130-450,000) (NORMAL) Platelet Morphology NORMAL APPEARANCE (NORMAL) RBC Morph Micro Appear NORMAL APPEARANCE (NORMAL) Sodium 135 (135-145) mmol/L Potassium 4.2 (3.5-5.0) mmol/L Chloride 106 (101-111) mmol/L Carbon Dioxide 21 (21-32) mmol/L Anion Gap 8.0 (6-13) BUN 19 (6-20) mg/dL Creatinine 1.0 (0.4-1.0) mg/dL Estimated GFR (MDRD) 54 L (>89) Glucose 111 H (70-100) mg/dL Lactic Acid (0.5-2.2) mmol/L Calcium 7.6 L (8.5-10.3) mg/dL Total Bilirubin (0.2-1.0) mg/dL AST (10-42) IU/L ALT (10-60) IU/L Alkaline Phosphatase (42-121) IU/L Total Protein (6.7-8.2) g/dL Albumin (3.2-5.5) g/dL Globulin (2.1-4.2) g/dL Albumin/Globulin Ratio (1.0-2.2) Lipase (22-51) U/L Urine Color YELLOW Urine Clarity CLEAR (CLEAR) Urine pH 6.0 (5.0-7.5) PH Ur Specific [place] <=1.005 (1.002-1.030) Urine Protein NEGATIVE (NEGATIVE) mg/dL Urine Glucose (UA) NEGATIVE (NEGATIVE) mg/dL Urine Ketones NEGATIVE (NEGATIVE) mg/dL Urine Occult Blood NEGATIVE (NEGATIVE) Urine Nitrite NEGATIVE (NEGATIVE) Urine Bilirubin NEGATIVE (NEGATIVE) Urine Urobilinogen 0.2 (NORMAL) (NORMAL) E.U./dL Ur Leukocyte Esterase NEGATIVE (NEGATIVE) Ur Microscopic Review NOT INDICATED Urine Culture Comments NOT INDICATED 05/20/19 05/20/19 05/20/19 Range/Units 18:30 18:30 18:30 WBC 12.2 H (4.8-10.8) x10^3/uL RBC 3.08 L (4.20-5.40) 10^6/uL Hgb 9.7 L (12.0-16.0) g/dL Hct 28.7 L (37.0-47.0) % MCV 93.2 (81.0-99.0) fL MCH 31.5 H (27.0-31.0) pg MCHC 33.8 (32.0-36.0) g/dL RDW 13.2 (12.0-15.0) % Plt Count 237 (130-450) 10^3/uL MPV 9.1 (7.9-10.8) fL Neut # (Auto) Not Reportable Lymph # (Auto) Not Reportable [place] # (Auto) Not Reportable Eos # (Auto) Not Reportable Baso # (Auto) Not Reportable Absolute Nucleated RBC Not Reportable Total Counted 100 Band Neuts % (Manual) 1 (0 - 10) % Abnorm Lymph % (Manual) 0 % Nucleated RBC % Not Reportable Neutrophils # (Manual) 8.8 H (1.5-6.6) 10^3/uL Lymphocytes # (Manual) 0.6 L (1.5-3.5) 10^3/uL Monocytes # (Manual) 0.9 (0.0-1.0) 10^3/uL Eosinophils # (Manual) 2.0 H (0-0.7) 10^3/uL Basophils # (Manual) 0.0 (0-0.1) 10^3/uL Differential Comment MANUAL DIFFERENTIAL Manual Slide Review Indicated WBC Morphology NORMAL APPEARANCE (NORMAL) Platelet Estimate NORMAL (130-450,000) (NORMAL) Platelet Morphology NORMAL APPEARANCE (NORMAL) RBC Morph Micro Appear NORMAL APPEARANCE (NORMAL) Sodium 131 L (135-145) mmol/L Potassium 4.4 (3.5-5.0) mmol/L Chloride 98 L (101-111) mmol/L Carbon Dioxide 25 (21-32) mmol/L Anion Gap 8.0 (6-13) BUN 27 H (6-20) mg/dL Creatinine 1.1 H (0.4-1.0) mg/dL Estimated GFR (MDRD) 49 L (>89) Glucose 123 H (70-100) mg/dL Lactic Acid 1.2 (0.5-2.2) mmol/L Calcium 9.1 (8.5-10.3) mg/dL Total Bilirubin 0.3 (0.2-1.0) mg/dL AST 24 (10-42) IU/L ALT 16 (10-60) IU/L Alkaline Phosphatase 32 L (42-121) IU/L Total Protein 5.6 L (6.7-8.2) g/dL Albumin 3.3 (3.2-5.5) g/dL Globulin 2.3 (2.1-4.2) g/dL Albumin/Globulin Ratio 1.4 (1.0-2.2) Lipase 47 (22-51) U/L Urine Color Urine Clarity (CLEAR) Urine pH (5.0-7.5) PH Ur Specific [place] (1.002-1.030) Urine Protein (NEGATIVE) mg/dL Urine Glucose (UA) (NEGATIVE) mg/dL Urine Ketones (NEGATIVE) mg/dL Urine Occult Blood (NEGATIVE) Urine Nitrite (NEGATIVE) Urine Bilirubin (NEGATIVE) Urine Urobilinogen (NORMAL) E.U./dL Ur Leukocyte Esterase (NEGATIVE) Ur Microscopic Review Urine Culture Comments ABX Reporting Has patient been on IV antibiotics over the past 48 hours?: Yes Sepsis Event Note (H) - Evaluation Current Stage of Sepsis: Sepsis Possible source of Sepsis: positive: Pulmonary - Sepsis Criteria Sepsis Criteria: Recorded Temperature greater than 38.3C or Less than 36C, WBC count greater than 12,000 or less than 4000 Assessment/Plan - Problem List (1) Sepsis Impression: 05/21 pt has documented fever, elevated WBC, cough with atypical pneumonia in CXR, blood culture is pending continue antibiotics continue lab and vital monitor supplement O2 as needed (2) Rash Conclusion/Plan: 05/21 pt's report pt's rash has been on chronic for quite long time. pt was seen by her PCP and sql server architect but limited improvement. Etiology was undetermined. continue Benadryl for itching prn. advise pt's to followup sql server architect as out patient (3) Hyperlipidemia Conclusion/Plan: On atorvastatin (4) Hypothyroid Conclusion/Plan: 05/21will check TSH, continue synthroid On synthroid (5) History of stroke Conclusion/Plan: continue plavix (6) Hypertension Conclusion/Plan: On lisinopril (7) Dementia Conclusion/Plan: 05/21 will continue support pt, and continue nurse care. pt was Not on any medication
[2019-05-21] MEDS ORDERED: HALOPERIDOL 5 MG/ML VIAL IVP ONE (17:11)
[2019-05-21] MEDS: SODIUM CHLORIDE FLUSH 0.9% 10 ML SYRINGE IVP PRN (17:43)
[2019-05-21] MEDS: cefTRIAXone 2 GM in SODIUM CHLORIDE 0.9% MINIBAG 100 ML IV SCH (20:43)
[2019-05-21] MEDS: AZITHROMYCIN 250 MG TABLET PO SCH (20:44)
[2019-05-22] MEDS: SODIUM CHLORIDE FLUSH 0.9% 10 ML SYRINGE IVP SCH ×2 (01:30→08:01)
[2019-05-22 05:39] LABS: BASOPHILS % (AUTO) 0.6 %; EOSINOPHILS % (AUTO) 15.3 %; HGB - HEMOGLOBIN 8.9 g/dL (12.0-16.0); LYMPHOCYTES % (AUTO) 5.5 %; MEAN CORPUSCULAR HEMOGLOBIN 32.4 pg (27.0-31.0); MEAN CORPUSCULAR HGB CONC 33.8 g/dL (32.0-36.0); MEAN CORPUSCULAR VOLUME 95.6 fL (81.0-99.0); MEAN PLATELET VOLUME 9.4 fL (7.9-10.8); MONOCYTES % (AUTO) 10.2 %; NEUTROPHILS % (AUTO) 68.1 %; PLT - PLATELET COUNT 229 10^3/uL (130-450); RED BLOOD COUNT 2.75 10^6/uL (4.20-5.40); RED CELL DISTRIBUTION WIDTH 13.3 % (12.0-15.0); WHITE BLOOD COUNT 8.7 x10^3/uL (4.8-10.8)
[2019-05-22 05:42] LABS: ABNORMAL LYMPHS % (MANUAL) 0 %; BAND NEUTROPHILS % (MANUAL) 0 %
[2019-05-22 05:45] LABS: CALCIUM 7.3 mg/dL (8.5-10.3); CREATININE 1.1 mg/dL (0.4-1.0)
[2019-05-22 06:18] LABS: EOSINOPHILS # (MANUAL) 1.2 10^3/uL (0-0.7); LYMPHOCYTES # (MANUAL) 0.3 10^3/uL (1.5-3.5); LYMPHOCYTES % (MANUAL) 3 %; MONOCYTES # (MANUAL) 0.3 10^3/uL (0.0-1.0); RBC MORPHOLOGY (MULTIPLE) NORMAL APPEARANCE (NORMAL)
[2019-05-22 06:19] LABS: DIFFERENTIAL COMMENT MANUAL DIFFERENTIAL; PLATELET ESTIMATE, MANUAL NORMAL (130-450,000) (NORMAL); PLATELET MORPHOLOGY NORMAL APPEARANCE (NORMAL)
[2019-05-22] MEDS: PANTOPRAZOLE 40 MG TABLET PO SCH (07:50)
[2019-05-22] MEDS ORDERED: LEVOTHYROXINE 88 MCG TABLET PO SCH (07:50)
[2019-05-22] MEDS: cefTRIAXone 2 GM in SODIUM CHLORIDE 0.9% MINIBAG 100 ML IV SCH (08:01)
[2019-05-22] MEDS: ENOXAPARIN 40 MG/0.4 ML SYRINGE SUBQ SCH (08:01)
[2019-05-22] MEDS: CLOPIDOGREL 75 MG TABLET PO SCH (08:01)
[2019-05-22] MEDS: AZITHROMYCIN 250 MG TABLET PO SCH (08:01)
[2019-05-22] MEDS: LISINOPRIL 20 MG TABLET PO SCH (08:01)
[2019-05-22] MEDS: POLYETHYLENE GLYCOL 3350 17 GM PACKET PO SCH (08:02)
[2019-05-22 08:28] VITALS: BP 124/80
[2019-05-22] MEDS: diphenhydrAMINE INJ 50 MG/ML VIAL IVP PRN (10:07)
[2019-05-22] MEDS: SODIUM CHLORIDE FLUSH 0.9% 10 ML SYRINGE IVP PRN (10:08)
--- NOTE | 2019-05-22 13:51 | Discharge Plan ---
Discharge Plan Problem Reviewed?: Yes Disposition: Home, Self Care Condition: Poor Prescriptions: Azithromycin [Zithromax] 250 mg PO DAILY #4 tablet diphenhydrAMINE [Benadryl] 25 mg PO Q4-6H PRN #20 capsule PRN Reason: Itching Levothyroxine [Synthroid] 88 mcg PO QDAC #15 tablet Diet: Regular Activity Restrictions: Activity as Tolerated Shower Restrictions: No (fall precaution) Instruction Topics: Azithromycin tablets, Pneumonia, Rash Skin Self Care Health Concerns: atypical pneumonia Plan of Treatment: you were found to have atypical pneumonia, you were treated with antibiotics. After treatment, you has no fever, chill, cough, and WBC became normal. you had 93-99% sats on room air. You are prescribed antibiotics for you to finish the treatment course. Please continue followup out of town collection clerk as out-pt for your skin care. You are prescribed Benadryl for your skin itching as needed. Care Goals: stabilization and improvement of your medical conditions Assessment: assessment as the above Additional Instructions or Follow Up instructions: you may followup your PCP in one week, followup out of town collection clerk as out-pt. Should your symptoms return or worsen, you may present ER or call 911 for help. No Smoking: If you smoke, Please STOP! Call for help. Follow-up with: Shara Mora DO [Primary Care Provider] -
--- NOTE | 2019-05-22 14:06 | DISCHARGE SUMMARY ---
Discharge Summary Discharge Date: 05/22/19 Discharging Provider: CAVAZOS Primary Care Provider: Shara Veronica Condition at Discharge: Poor Discharge Disposition: 01 Home, Self Care Discharge Facility Name: home - DIAGNOSES Admission Diagnoses: (1) Atypical pneumonia (2) Rash (3) Hyperlipidemia (4) Hypothyroid (5) History of stroke (6) Hypertension (7) Dementia Discharge Diagnoses with Status of Each Condition: (1) Sepsis improved. pt was found to have lower degree of fever, and elevated WBC. after treatment, pt has no fever, chill, cough. pt's WBC is down to normal. pt has 99- 93% sats on room air. pt's blood culture is negative for bacteremia. pt is prescribed Azithyromycin to finish the treatment course. (2) Rash chronic stable. advise pt's followup PCP and her manager of engineering continue management. pt is prescribed Benadryl PRN (3) Hyperlipidemia stable (4) Hypothyroid TSH is 28 in the test. pt's levothyroxine is increased to dosage to 88 mcg daily from previous 77mcg, followup PCP management. (5) History of stroke stable (6) Hypertension stable (7) Dementia stable - HPI History of Present Illness: Patient seen on 05/20/19 around 23:00 pm The history below was obtained from the HPI of the ED H&P because the patient has baseline dementia, is currently altered and unable to answer any question asked. There is no family member at bedside during my exam. "74-year-old female with a history of dementia, hypertension and hypothyroidism presents to the emergency department with decreasing alertness today. Her states that she is sleeping more than usual. He states it was harder to wake her up today. She felt warm to the touch. She has been dealing with an ongoing all over body rash for the past month. Has been on a cream for this, th ey do not know what the cream is. Is not improving. Nothing makes this better or worse. He states that the patient is normally ambulatory and verbal at home. Here she is lying curled up on her side. also states that she fell today as she also fell 2 weeks ago and struck her head." Patient has extensive rash/ small wounds all over her body, which are pruritic. She does not respond to her name. She constantly asks to get out of bed. She was found to have a WBC of 12.2. CXR suggests atypical pneumonia. - HOSPITAL COURSE Hospital Course: pt was admitted for lower degree fever, and mental status changing. pt's CT head was unremarkable for acute finding. pt's blood was negative for bacteremia. CXR indicate pt had atypical pneumonia. pt was treated with Azithyomycin and Rocephin. pt had chronic skin rash. pt followup her manager of engineering for the management. after treatment, pt was found to have lower degree of fever, and elevated WBC. after treatment, pt has no fever, chill, cough. pt's WBC is down to normal. pt has 99-93% sats on room air. after treatment, pt remained her baseline of dementia and stable. pt's blood culture is negative for bacteremia. pt is prescribed Azithyromycin to finish the treatment course. consulted with psych social worker for advance of pt's care. the detail hospital course is as the below: 1) Sepsis improved. pt was found to have lower degree of fever, and elevated WBC, mental status change. after treatment, pt has no fever, chill, cough. pt's WBC is down to normal. pt has 99-93% sats on room air. pt's blood culture is negative for bacteremia. pt is prescribed Azithyromycin to finish the treatment course. (2) Rash chronic stable. advise pt's followup PCP and her manager of engineering continue management. pt is prescribed Benadryl PRN (3) Hyperlipidemia stable (4) Hypothyroid TSH is 28 in the test. pt's levothyroxine is increased to dosage to 88 mcg daily from previous 77mcg, followup PCP management. (5) History of stroke stable (6) Hypertension stable (7) Dementia stable - ALLERGIES Allergies/Adverse Reactions: Allergies Allergy/AdvReac Type Severity Reaction Status Date / Time atorvastatin [From Lipitor] Allergy Unknown Verified 01/03/19 07:20 Penicillins Allergy Unknown Verified 01/03/19 07:20 [email or web address]/grass Allergy Unknown Uncoded 01/03/19 07:20 - MEDICATIONS Home Medications: Ambulatory Orders Medication Instructions Recorded Confirmed Multivitamin [Multiple Vitamins] 1 each PO DAILY 10/17/18 05/21/19 Acetaminophen [Tylenol] 650 mg PO Q6H PRN #30 tablet 10/20/18 05/21/19 Cholecalciferol (Vitamin D3) 1,000 unit PO DAILY #10 capsule 10/20/18 05/21/19 [Vitamin D3] Docusate Sodium 100 mg PO Q2D 05/21/19 05/21/19 Docusate Sodium [Dss] 250 mg PO Q2D 05/21/19 05/21/19 Famotidine 10 mg PO DAILY 05/21/19 05/21/19 Lisinopril 20 mg PO DAILY 05/21/19 05/21/19 Azithromycin [Zithromax] 250 mg PO DAILY #4 tablet 05/22/19 Levothyroxine [Synthroid] 88 mcg PO QDAC #15 tablet 05/22/19 diphenhydrAMINE [Benadryl] 25 mg PO Q4-6H PRN #20 capsule 05/22/19 - PHYSICAL EXAM AT DISCHARGE General Appearance: positive: No acute distress, Alert. negative: Lethargic Eyes Bilateral: positive: Normal inspection, PERRL, No lid inflammation, Conjunctivae nml ENT: positive: ENT inspection nml, Pharynx nml, No signs of dehydration. negative: Purulent nasal drainage, Pharyngeal erythema, Oral lesions Neck: positive: Nml inspection, Thyroid nml, No JVD, Trachea midline. negative: Thyromegaly, Lymphadenopathy (R), Lymphadenopathy (L), Stiff neck, Swelling/bruising, Tracheal deviation Respiratory: positive: Chest non-tender, No respiratory distress, Breath sounds nml. negative: Wheezes, Rales, Rhonchi Cardiovascular: positive: Regular rate & rhythm, No murmur, No gallop. negative: Irregularly irregular, Extrasystoles, Tachycardia, Bradycardia, JVD present, Systolic murmur, Diastolic murmur Peripheral Pulses: positive: 2+ Abdomen: positive: Non-tender, No organomegaly, Nml bowel sounds, No distention. negative: Tenderness, Guarding, Rebound Back: positive: Nml inspection. negative: CVA tenderness (R), CVA tenderness (L) Skin: positive: Warm, Dry, Skin rash. negative: Cyanosis, Diaphoresis, Pallor Extremities: positive: Non-tender, Full ROM, Nml appearance. negative: Calf tenderness, Joint swelling, Margi's sign/cords Neurologic/Psychiatric: positive: Motor nml, Sensation nml. negative: Weakness, Sensory loss, Facial droop, Slurred/abnml speech, Depressed mood/affect - LABS Result Diagrams: 05/22/19 05:15 05/22/19 05:15 - SEPSIS Current Stage of Sepsis: Sepsis Possible source of Sepsis: Pulmonary Sepsis Criteria: Recorded Temperature greater than 38.3C or Less than 36C, WBC count greater than 12,000 or less than 4000 - FOLLOW UP Follow Up: you were found to have atypical pneumonia, you were treated with antibiotics. After treatment, you has no fever, chill, cough, and WBC became normal. you had 93-99% sats on room air. You are prescribed antibiotics for you to finish the t reatment course. Please continue followup manager of engineering as out-pt for your skin care. You are prescribed Benadryl for your skin itching as needed. you may followup your PCP in one week, followup manager of engineering as out-pt. Should your symptoms return or worsen, you may present ER or call 911 for help. - TIME SPENT Time Spent in Discharge (Minutes): 55
== END 2019-05-22 15:10 | disposition home or self-care (01) | DRG 871 ==
LOC: EDUNIT# → ED 17:59 → MS2 22:45
PROVIDERS: ADMIT Internal Medicine; ATTEND Nurse Practitioner Gerontology
DX: A41.9 Sepsis, unspecified organism (principal); J18.9 Pneumonia, unspecified organism; R40.2422 Glasgow coma scale score 9-12, at arrival to emergency department; F03.90 Unspecified dementia, unspecified severity, without behavioral disturbance, psychotic disturbance, mood disturbance, and anxiety; F03.91 Unspecified dementia, unspecified severity, with behavioral disturbance; R21 Rash and other nonspecific skin eruption; K59.00 Constipation, unspecified; L29.9 Pruritus, unspecified; E78.5 Hyperlipidemia, unspecified; E03.9 Hypothyroidism, unspecified; I10 Essential (primary) hypertension; M81.0 Age-related osteoporosis without current pathological fracture; Z79.899 Other long term (current) drug therapy; Z91.81 History of falling; Z86.73 Personal history of transient ischemic attack (TIA), and cerebral infarction without residual deficits; Z79.02 Long term (current) use of antithrombotics/antiplatelets
CPT/HCPCS: 36415; 70450; 71045; 72125; 80048; 80053; 81003; 83605; 83690; 84443; 85025; 87040; 96361; 96374; 96375; 99281; 99285; A9270; J1200; J1650; 81001; 87086

== ENCOUNTER 2019-07-04 09:50 | Outpatient (CLI) | payer MEDICARE, OTHER ==
[2019-07-04 14:06] LABS: FREE T4 (FREE THYROXINE) 1.18 ng/dL (0.58-1.64)
== END 2019-07-04 23:59 | disposition home or self-care (01) ==
LOC: LAB.WCP 09:50
PROVIDERS: ATTEND Physician Assistant Medical
DX: E03.9 Hypothyroidism, unspecified (principal)
CPT/HCPCS: 36415; 84439; 84443

== ENCOUNTER 2019-07-11 07:00 | Outpatient (CLI) | payer MEDICARE, OTHER ==
[2019-07-11 16:54] LABS: BASOPHILS % (AUTO) 0.2 %; LYMPHOCYTES # (AUTO) 0.4 10^3/uL (1.5-3.5); LYMPHOCYTES % (AUTO) 4.4 %; MEAN CORPUSCULAR HGB CONC 32.9 g/dL (32.0-36.0); MEAN CORPUSCULAR VOLUME 94.1 fL (81.0-99.0); MEAN PLATELET VOLUME 9.9 fL (7.9-10.8); MONOCYTES # (AUTO) 0.2 10^3/uL (0.0-1.0); MONOCYTES % (AUTO) 2.6 %; NEUTROPHILS # (AUTO) 8.4 10^3/uL (1.5-6.6); NEUTROPHILS % (AUTO) 91.6 %; PLT - PLATELET COUNT 341 10^3/uL (130-450); RED BLOOD COUNT 3.55 10^6/uL (4.20-5.40); WHITE BLOOD COUNT 9.2 x10^3/uL (4.8-10.8)
[2019-07-11 17:13] LABS: % IRON SATURATION 11 % (20-50); IRON 38 ug/dL (28-170); TOTAL IRON BINDING CAPACITY 335 ug/dL (250-450); TRANSFERRIN 239 mg/dL (192-382)
== END 2019-07-11 23:59 | disposition home or self-care (01) ==
LOC: LAB.WCP 07:00
PROVIDERS: ATTEND Physician Assistant Medical
DX: D64.9 Anemia, unspecified (principal)
CPT/HCPCS: 36415; 82728; 83540; 84466; 85025

== ENCOUNTER 2019-07-19 14:29 | Outpatient (CLI) | payer MEDICARE, OTHER | END 2019-07-19 14:30 | disposition critical access hospital (66) | LOC: EMS 14:29 | PROVIDERS: ATTEND Surgery | DX: R46.89 Other symptoms and signs involving appearance and behavior (principal) | CPT/HCPCS: A0425; A0429 ==

== ENCOUNTER 2019-07-19 14:44 | Emergency (ER) | payer MEDICARE, OTHER ==
[2019-07-19 14:59] VITALS: BP 148/74
--- NOTE | 2019-07-19 15:21 | ED Physician Documentation ---
PD HPI ALTERED MENTAL STATUS - Stated complaint Stated Complaint: ALOC - Chief complaint Chief Complaint: Neuro - History obtained from History obtained from: EMS - History of Present Illness Timing - onset: Unknown Timing - duration: Other (unknown) Quality / character: Less responsive Contributing factors: Known dementia - Additional information Additional information: 74-year-old female with Alzheimer's dementia. EMS states that she was altered today and her called 911. Family is not available to give any history at this time. Patient is unable to give any history. She just lies on her left side and falls back asleep when she is aroused. Unknown what her normal ba seline is. Unknown if she has suffered any trauma or falls. 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 : None HEENT: Chronic vision loss, Chronic hearing loss Psych: None Musculoskeletal: None, Osteoporosis Derm: None - Past Surgical History Past Surgical History: Yes HEENT: Other - Present Medications Home Medications: Ambulatory Orders Medication Instructions Recorded Confirmed Multivitamin [Multiple Vitamins] 1 each PO DAILY 10/17/18 05/21/19 Acetaminophen [Tylenol] 650 mg PO Q6H PRN #30 tablet 10/20/18 05/21/19 Cholecalciferol (Vitamin D3) 1,000 unit PO DAILY #10 capsule 10/20/18 05/21/19 [Vitamin D3] Docusate Sodium 100 mg PO Q2D 05/21/19 05/21/19 Docusate Sodium [Dss] 250 mg PO Q2D 05/21/19 05/21/19 Famotidine 10 mg PO DAILY 05/21/19 05/21/19 Lisinopril 20 mg PO DAILY 05/21/19 05/21/19 Azithromycin [Zithromax] 250 mg PO DAILY #4 tablet 05/22/19 Levothyroxine [Synthroid] 88 mcg PO QDAC #15 tablet 05/22/19 diphenhydrAMINE [Benadryl] 25 mg PO Q4-6H PRN #20 capsule 05/22/19 - Allergies Allergies/Adverse Reactions: Allergies Allergy/AdvReac Type Severity Reaction Status Date / Time alendronate sodium Allergy Unknown Verified 05/23/19 07:38 atorvastatin [From Lipitor] Allergy Unknown Verified 01/03/19 07:20 Penicillins Allergy Unknown Verified 01/03/19 07:20 [email or web address] Allergy Unknown Uncoded 01/03/19 07:20 - Social History Does the pt smoke?: No Smoking Status: Never smoker Does the pt drink ETOH?: No Does the pt have substance abuse?: No - Immunizations Immunizations are current?: Yes - POLST Patient has POLST: No POLST Status: Full Code PD ED PE NORMAL - Vitals Vital signs reviewed: Yes Results - Vitals Vitals: Oxygen O2 Source Room air - Labs Labs: Laboratory Tests 07/19/19 07/19/19 07/19/19 15:35 15:35 15:35 WBC 12.9 H RBC 3.37 L Hgb 10.1 L Hct 30.9 L MCV 91.7 MCH 30.0 MCHC 32.7 RDW 14.1 Plt Count 285 MPV 9.5 Neut # (Auto) 11.9 H Lymph # (Auto) 0.4 L Darke # (Auto) 0.5 Eos # (Auto) 0.0 Baso # (Auto) 0.0 Absolute Nucleated RBC 0.00 Nucleated RBC % 0.0 Sodium 133 L Potassium 5.3 H Chloride 101 Carbon Dioxide 24 Anion Gap 8.0 BUN 41 H Creatinine 1.4 H Estimated GFR (MDRD) 37 L Glucose 164 H Calcium 9.6 Total Bilirubin 0.7 AST 25 ALT 22 Alkaline Phosphatase 40 L Total Protein 6.6 L Albumin 3.6 Globulin 3.0 Albumin/Globulin Ratio 1.2 Lipase 54 H TSH 0.79 Free T4 1.52 Urine Color Urine Clarity Urine pH Ur Specific [place] Urine Protein Urine Glucose (UA) Urine Ketones Urine Occult Blood Urine Nitrite Urine Bilirubin Urine Urobilinogen Ur Leukocyte Esterase Urine RBC Urine WBC Ur Squamous Epith Cells Urine Bacteria Urine Casts Ur Microscopic Review Urine Culture Comments Urine Opiates Screen Ur Oxycodone Screen Urine Methadone Screen Ur Propoxyphene Screen Ur Barbiturates Screen Ur Tricyclics Screen Ur Phencyclidine Scrn Ur Amphetamine Screen U Methamphetamines Scrn U Benzodiazepines Scrn Urine Cocaine Screen U Cannabinoids Screen Ethyl Alcohol < 5.0 07/19/19 07/19/19 17:43 17:43 WBC RBC Hgb Hct MCV MCH MCHC RDW Plt Count MPV Neut # (Auto) Lymph # (Auto) Darke # (Auto) Eos # (Auto) Baso # (Auto) Absolute Nucleated RBC Nucleated RBC % Sodium Potassium Chloride Carbon Dioxide Anion Gap BUN Creatinine Estimated GFR (MDRD) Glucose Calcium Total Bilirubin AST ALT Alkaline Phosphatase Total Protein Albumin Globulin Albumin/Globulin Ratio Lipase TSH Free T4 Urine Color YELLOW Urine Clarity CLEAR Urine pH 7.0 Ur Specific [place] 1.015 Urine Protein 30 H Urine Glucose (UA) NEGATIVE Urine Ketones NEGATIVE Urine Occult Blood NEGATIVE Urine Nitrite NEGATIVE Urine Bilirubin NEGATIVE Urine Urobilinogen 0.2 (NORMAL) Ur Leukocyte Esterase NEGATIVE Urine RBC None Seen Urine WBC 0-3 Ur Squamous Epith Cells NONE SEEN Urine Bacteria None Seen Urine Casts 0-2 Hyaline Casts Ur Microscopic Review INDICATED Urine Culture Comments NOT INDICATED Urine Opiates Screen NEGATIVE Ur Oxycodone Screen NEGATIVE Urine Methadone Screen NEGATIVE Ur Propoxyphene Screen NEGATIVE Ur Barbiturates Screen NEGATIVE Ur Tricyclics Screen NEGATIVE Ur Phencyclidine Scrn NEGATIVE Ur Amphetamine Screen NEGATIVE U Methamphetamines Scrn NEGATIVE U Benzodiazepines Scrn NEGATIVE Urine Cocaine Screen NEGATIVE U Cannabinoids Screen NEGATIVE Ethyl Alcohol - Rads (name of study) Head CT Radiology: Prelim report reviewed, EMP read contemporaneously, See rad report (No acute abnormality) Chest x-ray Radiology: Prelim report reviewed, EMP read contemporaneously, See rad report (No acute abnormality) PD MEDICAL DECISION MAKING - ED course Complexity details: reviewed results, re-evaluated patient, considered differential, d/w family ED course: Patient seemed to improve with IV fluids. No acute findings on laboratory testing or radiographic imaging. No indication for admission at this point. She seems to be close to her baseline. will take her home at this time. No focal neurological deficits. No evidence of acute stroke. Patient and family counseled regarding signs and symptoms for which I believe and urgent re-evaluation would be necessary. This document was made in part using voice recognition software. While efforts are made to proofread this document, sound alike and grammatical errors may occur. Departure - Departure Disposition: 01 Home, Self Care Clinical Impression: Dehydration Dementia Qualifiers: Dementia type: unspecified type Dementia behavioral disturbance: without behavioral disturbance Qualified Code(s): F03.90 - Unspecified dementia without behavioral disturbance Condition: Stable Instructions: ED Dementia Alzheimer, ED Dehydration, ED Dementia Caregiver Support Follow-Up: Bhavik Alcaraz MD [Primary Care Provider] - Within 1 week Comments: The cause of her symptoms are unclear today. She is dehydrated and was given IV fluids for this. She is not having a fever. Her chest x-ray does not show pneumonia. Her urine does not show infection. She should follow-up with her doctor for further care. Return if she worsens Discharge Date/Time: 07/19/19 19:30
[2019-07-19 15:40] LABS: BASOPHILS % (AUTO) 0.1 %; EOSINOPHILS % (AUTO) 0.3 %; HGB - HEMOGLOBIN 10.1 g/dL (12.0-16.0); LYMPHOCYTES # (AUTO) 0.4 10^3/uL (1.5-3.5); LYMPHOCYTES % (AUTO) 2.7 %; MEAN CORPUSCULAR HGB CONC 32.7 g/dL (32.0-36.0); MEAN CORPUSCULAR VOLUME 91.7 fL (81.0-99.0); MEAN PLATELET VOLUME 9.5 fL (7.9-10.8); MONOCYTES # (AUTO) 0.5 10^3/uL (0.0-1.0); MONOCYTES % (AUTO) 3.7 %; NEUTROPHILS # (AUTO) 11.9 10^3/uL (1.5-6.6); NEUTROPHILS % (AUTO) 92.3 %; PLT - PLATELET COUNT 285 10^3/uL (130-450); RED BLOOD COUNT 3.37 10^6/uL (4.20-5.40); RED CELL DISTRIBUTION WIDTH 14.1 % (12.0-15.0); WHITE BLOOD COUNT 12.9 x10^3/uL (4.8-10.8)
[2019-07-19 15:52] LABS: ALBUMIN 3.6 g/dL (3.2-5.5); ALBUMIN/GLOBULIN RATIO 1.2 (1.0-2.2); ALKALINE PHOSPHATASE 40 IU/L (42-121); ALT ALANINE AMINOTRANSFERASE 22 IU/L (10-60); AST ASPARTATE AMINOTRANSFERASE 25 IU/L (10-42); BILIRUBIN,TOTAL 0.7 mg/dL (0.2-1.0); BUN - BLOOD UREA NITROGEN 41 mg/dL (6-20); CALCIUM 9.6 mg/dL (8.5-10.3); CARBON DIOXIDE - CO2 24 mmol/L (21-32); CHLORIDE 101 mmol/L (101-111); CREATININE 1.4 mg/dL (0.4-1.0); GFR - MDRD 37 (>89); GLUCOSE 164 mg/dL (70-100); LIPASE 54 U/L (22-51); SODIUM 133 mmol/L (135-145); TOTAL PROTEIN 6.6 g/dL (6.7-8.2)
[2019-07-19] MEDS ORDERED: SODIUM CHLORIDE 0.9% 1,000 ML IV ONE ×2 (16:07)
[2019-07-19 16:10] LABS: THYROID STIMULATING HORMONE 0.79 uIU/mL (0.34-5.60)
[2019-07-19 16:13] LABS: FREE T4 (FREE THYROXINE) 1.52 ng/dL (0.58-1.64)
--- NOTE | 2019-07-19 16:22 | CT Report ---
Reason: ALOC Procedure Date: 07/19/2019 Accession Number: [id number] / [id number] Procedure: CT - HEAD WO CPT Code: Final Report FULL RESULT: EXAM: CT HEAD EXAM DATE: 07/19/2019 03:55 PM. CLINICAL HISTORY: ALOC. COMPARISON: CERVICAL SPINE W/O 05/20/2019 10:05 PM HEAD W/O 05/20/2019 10:05 PM. TECHNIQUE: Multiaxial CT images were obtained from the foramen magnum to the vertex. Reformats: Sagittal and coronal. IV contrast: None. In accordance with CT protocol optimization, one or more of the following dose reduction techniques were utilized for this exam: automated exposure control, adjustment of mA and/or KV based on patient size, or use of iterative reconstructive technique. FINDINGS: Parenchyma: Chronic encephalomalacia seen in lateral left temporal lobe with no interval change since prior. Continued volume loss and diffuse cerebral atrophy. No intraparenchymal hemorrhage. No evidence of mass, midline shift, or CT findings of infarction. [place]alado-white differentiation is distinct. Mild chronic appearing hypoattenuation/ encephalomalacia in right lateral temporal lobe as well. Chronic appearing calcific foci in bilateral basal ganglia. Extraaxial Spaces: Normal for age. No subdural or epidural collections identified. Ventricles: Normal in size and position. Sinuses and Orbits: Imaged paranasal sinuses, orbits, and mastoids show no significant abnormality. Bones: No evidence of fracture or calvarial defect. Other: None. IMPRESSION: Diffuse cerebral atrophy and continued volume loss secondary to encephalomalacia in left lateral temporal lobe. No acute intracranial abnormality. Findings grossly unchanged since 05 20 19. [facility]
[2019-07-19] MEDS ORDERED: HALOPERIDOL 5 MG/ML VIAL IM STA (16:50)
[2019-07-19 17:57] LABS: MUDS CUTOFF CONCENTRATIONS CUTOFF CONC BELOW:
[2019-07-19 17:58] LABS: LEUKOCYTE ESTERASE, URINE NEGATIVE (NEGATIVE)
[2019-07-19 17:59] LABS: BILIRUBIN,URINE NEGATIVE (NEGATIVE); GLUCOSE, URINE (UA) NEGATIVE (NEGATIVE); KETONES,URINE (UA) NEGATIVE (NEGATIVE); NITRITE,URINE NEGATIVE (NEGATIVE); OCCULT BLOOD,URINE NEGATIVE (NEGATIVE); PROTEIN,URINE 30 mg/dL (NEGATIVE); UROBILINOGEN,URINE 0.2 (NORMAL) E.U./dL (NORMAL)
[2019-07-19 18:01] LABS: CLARITY,URINE CLEAR (CLEAR)
[2019-07-19 18:11] LABS: BACTERIA,URINE None Seen /HPF (None Seen); CASTS, URINE 0-2 Hyaline Casts /LPF; RBC,URINE None Seen /HPF (0-5); SQUAMOUS EPITHELIAL CELL,UR NONE SEEN (<= Few)
[2019-07-19 18:12] LABS: AMPHETAMINE SCREEN,URINE NEGATIVE (NEGATIVE); BENZODIAZEPINES SCREEN, URINE NEGATIVE (NEGATIVE); COCAINE SCREEN URINE NEGATIVE (NEGATIVE); METHADONE SCREEN, URINE NEGATIVE (NEGATIVE); METHAMPHETAMINES SCREEN, URINE NEGATIVE (NEGATIVE); OPIATE SCREEN, URINE NEGATIVE (NEGATIVE); OXYCODONE SCREEN, URINE NEGATIVE (NEGATIVE); PROPOXYPHENE SCREEN, URINE NEGATIVE (NEGATIVE); TRICYCLIC ANTIDEPRESSANT,URINE NEGATIVE (NEGATIVE)
--- NOTE | 2019-07-19 18:49 | XRAY Report ---
Reason: cough Procedure Date: 07/19/2019 Accession Number: [id number] / [id number] Procedure: XR - Chest 1 View X-Ray CPT Code: 29529 Final Report FULL RESULT: EXAM: CHEST RADIOGRAPHY EXAM DATE: 07/19/2019 06:24 PM. CLINICAL HISTORY: Cough. Altered mental status. COMPARISON: CHEST 1 VIEW 05/20/2019 6:28 PM. TECHNIQUE: 1 view. FINDINGS: Lungs/Pleura: No focal opacities evident. No pleural effusion. No pneumothorax. Mediastinum: Within exam limitations, the cardiomediastinal contour is normal. Other: None. IMPRESSION: Normal single view chest. [facility]
== END 2019-07-19 19:30 | disposition home or self-care (01) ==
LOC: EDUNIT# → EDBD → ED 14:44
DX: E86.0 Dehydration (principal); G30.9 Alzheimer's disease, unspecified; F02.80 Dementia in other diseases classified elsewhere, unspecified severity, without behavioral disturbance, psychotic disturbance, mood disturbance, and anxiety; I10 Essential (primary) hypertension
CPT/HCPCS: 36415; 70450; 71045; 80053; 80306; 80320; 81001; 81003; 83690; 84439; 84443; 85025; 87086; 96372; 99281; 99284